=== PATIENT | male | born 1955 | race American Indian/Alaskan Native ===

== ENCOUNTER 2018-05-17 05:47 | Day surgery (SDC) | payer MEDICAID ==
[2018-05-17] MEDS ORDERED: ANCEF/STERILE WATER 2 GM/20 ML 2 GM/20 ML SYRINGE IV NR (06:00)
[2018-05-17] MEDS ORDERED: NACL 0.9% 1000 ML 1,000 ML IV SCH (06:00)
[2018-05-17 07:03] LABS: Basophils % (Auto) 1.1 % (0.0-1.8); Eosinophils # (Auto) 0.1 K/mm3 (0.0-0.4); Eosinophils % (Auto) 4.2 % (0.0-4.3); Hematocrit 37.7 % (35.5-45.6); Hemoglobin 11.8 gm/dl (11.8-15.2); Lymphocytes # (Auto) 1.3 K/mm3 (1.2-5.4); Lymphocytes % (Auto) 41.3 % (13.4-35.0); Mean Corpuscular HGB Conc 31 % (32-34); Mean Corpuscular Hemoglobin 25 pg (28-32); Mean Corpuscular Volume 81 fl (84-94); Monocytes # (Auto) 0.2 K/mm3 (0.0-0.8); Monocytes % (Auto) 7.3 % (0.0-7.3); Platelet Count 101 K/mm3 (140-440); Red Blood Count 4.64 M/mm3 (3.65-5.03); Red Cell Distribution Width 19.2 % (13.2-15.2)
[2018-05-17 07:15] LABS: Calcium 9.1 mg/dL (8.4-10.2)
[2018-05-17] MEDS ORDERED: XYLOCAINE MPF 2% ONE (07:16)
[2018-05-17] MEDS ORDERED: DIPRIVAN 10 MG/ML IV ONE ×2 (07:16→09:51)
[2018-05-17] MEDS ORDERED: LOPRESSOR IV ONE (07:33)
[2018-05-17] MEDS ORDERED: MARCAINE-EPI 0.5%-1:200,000 INFILTRATI ONE ×3 (07:38→09:03)
[2018-05-17] MEDS ORDERED: GELFOAM TP ONE ×2 (07:39→08:13)
[2018-05-17] MEDS ORDERED: HEPARIN ONE (07:39)
[2018-05-17] MEDS ORDERED: THROMBIN (BOVINE) TP ONE ×2 (07:39→08:13)
[2018-05-17] MEDS ORDERED: RIFADIN ONE ×2 (07:39→07:41)
[2018-05-17] MEDS ORDERED: NACL 0.9% 500 ML 500 ML ONE ×2 (07:39→07:40)
[2018-05-17] MEDS ORDERED: MARCAINE 0.5% INFILTRATI ONE (07:40)
[2018-05-17] MEDS ORDERED: SUBLIMAZE ONE ×2 (07:43→09:11)
[2018-05-17] MEDS ORDERED: ZEMURON IV ONE (07:43)
[2018-05-17] MEDS ORDERED: HEPARIN 10,000 UNITS/10 ML ONE (07:46)
[2018-05-17] MEDS ORDERED: ZOFRAN IV PRN (07:47)
--- NOTE | 2018-05-17 07:52 | Anesthesia Consultation ---
Anesthesia Consult and Med Hx Date of service: 05/17/18 - Airway Anesthetic Teeth Evaluation: Edentulous ROM Head & Neck: Adequate Mental/Hyoid Distance: Adequate Mallampati Class: Class II Intubation Access Assessment: Probably Good - Pulmonary Exam CTA: Yes - Cardiac Exam Cardiac Exam: RRR - Pre-Operative Health Status ASA Pre-Surgery Classification: ASA3 Proposed Anesthetic Plan: General - Pre-Anesthesia Comment Pre-Anesthesia Comments: No LMA; most likely a hx of gastroparesis related to DM - Pulmonary Hx Smoking: Yes - Cardiovascular System Hx Hypertension: Yes Hx Peripheral Vascular Disease: Yes - Central Nervous System Hx Psychiatric Problems: No - Gastrointestinal Hx Gastroesophageal Reflux Disease: Yes - Endocrine Hx End Stage Renal Disease: Yes Hx Insulin Dependent Diabetes: Yes (BS 107) - Other Systems Hx Alcohol Use: Yes (Occasional) Hx Cancer: No
--- NOTE | 2018-05-17 07:53 | Anesthesia Day of Surgery ---
Anesthesia Day of Surgery - Day of Surgery Patient Examined: Yes Patient H&P Reviewed: Yes Patient is NPO: Yes Beta Blockers: Yes
[2018-05-17] MEDS ORDERED: PEPCID IV NR ×2 (08:00)
[2018-05-17] MEDS ORDERED: GELFOAM 12 X 7 TP ONE (09:03)
[2018-05-17] MEDS ORDERED: NACL 0.9% IR ONE (09:03)
[2018-05-17] MEDS ORDERED: HEPARIN 10,000 UNITS/10 ML IR ONE (09:03)
[2018-05-17] MEDS ORDERED: THROMBIN SPRAYKIT (BOVINE) TP ONE (09:03)
[2018-05-17] MEDS ORDERED: NACL 0.9% 500 ML IRRIGATION ONE (09:03)
[2018-05-17] MEDS ORDERED: PROAIR IH ONE (09:10)
--- NOTE | 2018-05-17 10:04 | Short Stay Summary ---
Short Stay Documentation Date of service: 05/17/18 - History H&P: obtained from office - Allergies and Medications Current Medications: Allergies No Known Allergies Allergy (Unverified 05/10/18 17:04) Home Medications Medication Instructions Recorded Confirmed Last Taken Type ALBUTEROL Inhaler (OR & NICU) 2 puff IH QID PRN 05/17/18 05/17/18 Unknown History [Proair] Amlodipine Besylate [Norvasc] 10 mg PO QDAY 05/17/18 05/17/18 05/16/18 07:00 History Aspirin [Aspirin BABY CHEW TAB] 81 mg PO QDAY 05/17/18 05/17/18 05/16/18 07:00 History Carvedilol 25 mg PO BID 05/17/18 05/17/18 05/16/18 07:00 History Cholecalciferol (Vitamin D3) 1,000 unit PO QDAY 05/17/18 05/17/18 05/16/18 07: 00 History [Vitamin D3] Furosemide [Lasix] 80 mg PO QDAY 05/17/18 05/17/18 05/16/18 07:00 History Gabapentin [Neurontin] 300 mg PO BID 05/17/18 05/17/18 05/16/18 07:00 History Hydralazine HCl 50 mg PO BID 05/17/18 05/17/18 05/16/18 07:00 History Insulin NPH Hum/Reg Insulin Hm 31 unit SQ QPM 05/17/18 05/17/18 05/15/18 History [Relion Novolin 70-30 Vial] Insulin NPH Hum/Reg Insulin Hm 35 unit SQ QAM 05/17/18 05/17/18 05/16/18 07:00 History [Relion Novolin 70-30 Vial] 35 UNITS Active Medications Famotidine (Pepcid) 20 mg IV PREOP NR Stop: 05/17/18 12:00 Last Admin: 05/17/18 07:54 Dose: 20 mg Hydromorphone HCl (Dilaudid) 0.25 mg IV Q10MIN PRN PRN Reason: Pain, Moderate (4-6) Stop: 05/17/18 20:00 Sodium Chloride (Nacl 0.9% 1000 Ml) 1,000 mls @ 42 mls/hr IV DIRECT KERRIE Last Admin: 05/17/18 07:31 Dose: 42 mls/hr - Brief post op/procedure progress note Date of procedure: 05/17/18 Pre-op diagnosis: failing arteriovenous fistula left arm Post-op diagnosis: same Procedure: Elevation of left arm braciobasilic fistula. Anesthesia: GETA, local (0.5% Marcaine w epi) Findings: excellent thrill in fistula at end of case Surgeon: EULALIA ALANIZ Estimated blood loss: minimal Pathology: none Condition: stable - Hospital course Hospital course: benign - Disposition Condition at discharge: Good Disposition: DC-01 TO HOME OR SELFCARE Short Stay Discharge Plan Activity: advance as tolerated Diet: advance as tolerated Wound: per your surgeon's advice Follow up with: EULALIA ALANIZ MD [Staff Physician] - 7 Days Prescriptions: HYDROcodone/APAP 5-325 [[place] 5/325] 1 each PO Q6HR PRN #30 tablet PRN Reason: Pain
--- NOTE | 2018-05-17 10:08 | Operative Report ---
Operative Report Operative Report: Date of procedure: 05/17/2018 Pre-operative diagnosis: Failing arteriovenous fistula, left upper extremity Post-operative diagnosis: Same Procedure name(s): Elevation of left upper extremity basilar vein fistula in the upper arm Surgeon: Noah Ga MD Independent Living Instructor: None Anesthesia: Gen. With local supplementation using half percent Marcaine with epinephrine EBL: Minimal Operative indication: Patient is a 62-year-old man who has a functioning AV fistula left upper extremity but is too deep for dialysis access. He presents now for elevation of the left upper extremity arteriovenous fistula. Findings: Fistula appeared to be of good caliber with an excellent thrill. It was deep to the fascia and needed to be elevated to the subcutaneous area. Procedure: The patient was placed on the table supine position and given appropriate anesthesia. The area of the left arm was prepped with a ChloraPrep solution and draped in the usual sterile fashion. Real-time ultrasound guidance was used to sergio the area of the fistula on the skin. Half Percent Marcaine with epinephrine was used to anesthetize the skin incision that was just medial to the marked fistula. Decision was made parallel to the arm over the fistula. Dissection was carried out to identify the fistula. The fistula was clearly deep to the fascia. It was resting on the muscle underneath. Meticulous dissection was used to free the fistula up along its entire course along the bicep. The fascia was then divided and a subcutaneous cutaneous tunnel was made just underneath the skin slightly more laterally to this location. Meticulous hemostasis was obtained. The fistula was then elevated into this tunnel and secured into place using 3-0 interrupted Vicryl sutures. The wound was infiltrated with half percent Marcaine with epinephrine. The subcutaneous tissue was closed using running 3-0 Vicryl. The skin was closed using running 4-0 Monocryl. Sterile dressings were applied. The patient tolerated the procedure well. Sponge, needle, and instrument counts were reported as correct. He was taken from the operating room to the recovery room in stable condition with a palpable left radial pulse and an excellent thrill in the arteriovenous fistula.
[2018-05-17] MEDS: DILAUDID IV PRN ×2 (10:43→10:58)
[2018-05-17] MEDS ORDERED: NORCO 5/325 PO PRN (11:06)
[2018-05-17] MEDS ORDERED: NORCO 5/325 PO ONE (13:20)
[2018-05-17 16:42] VITALS: BP 161/78
== END 2018-05-17 14:00 | disposition home or self-care (01) ==
LOC: OR 05:47
PROVIDERS: ATTEND Surgery Vascular Surgery
DX: T82.898A Other specified complication of vascular prosthetic devices, implants and grafts, initial encounter (principal); I12.0 Hypertensive chronic kidney disease with stage 5 chronic kidney disease or end stage renal disease; E11.22 Type 2 diabetes mellitus with diabetic chronic kidney disease; N18.6 End stage renal disease; M19.90 Unspecified osteoarthritis, unspecified site; K21.9 Gastro-esophageal reflux disease without esophagitis; Z72.89 Other problems related to lifestyle; Z87.891 Personal history of nicotine dependence; Z79.899 Other long term (current) drug therapy; Z79.4 Long term (current) use of insulin; Z79.82 Long term (current) use of aspirin; Z79.01 Long term (current) use of anticoagulants; Z98.49 Cataract extraction status, unspecified eye; Z98.890 Other specified postprocedural states; Y83.9 Surgical procedure, unspecified as the cause of abnormal reaction of the patient, or of later complication, without mention of misadventure at the time of the procedure; Y92.89 Other specified places as the place of occurrence of the external cause
CPT/HCPCS: 36415; 36832; 80048; 82962; 85025; A4649; J0690; J1170; J1644; J2704; J3010; J3490; J7030; J7040

== ENCOUNTER 2018-05-28 13:17 | Inpatient (IN) | payer MEDICAID ==
[2018-05-28] MEDS ORDERED: TYLENOL PO ONE (13:37)
[2018-05-28] MEDS ORDERED: NACL 0.9% 500 ML 500 ML IV ONE (13:40)
[2018-05-28] MEDS ORDERED: NACL 0.9% 500 ML 500 ML ONE (13:45)
--- NOTE | 2018-05-28 13:45 | Emergency Department Report ---
ED General Adult HPI - General Chief complaint: Abdominal Pain Stated complaint: ABD PAIN Time Seen by Provider: 05/28/18 13:33 Source: patient, EMS Mode of arrival: Stretcher Limitations: No Limitations - History of Present Illness Initial comments: Patient is 59 years old male with history of end-stage renal disease on hemodialysis. Patient brought from dialysis center for fever and abdominal pain and left AV fistula pain. Patient stated that he did not finish dialysis. Patient had recently had a left arm AV fistula elevation. Patient is also coughing. He denied any nausea or vomiting. He described his abdominal pain as diffuse, comes and goes. Patient denied any diarrhea. - Related Data Home Medications Medication Instructions Recorded Confirmed Last Taken ALBUTEROL Inhaler (OR & NICU) 2 puff IH QID PRN 05/17/18 05/17/18 Unknown [ProAir HFA Inhaler] Amlodipine Besylate [Norvasc] 10 mg PO QDAY 05/17/18 05/17/18 05/16/18 07:00 Aspirin [Aspirin BABY CHEW TAB] 81 mg PO QDAY 05/17/18 05/17/18 05/16/18 07:00 Carvedilol 25 mg PO BID 05/17/18 05/17/18 05/16/18 07:00 Cholecalciferol (Vitamin D3) 1,000 unit PO QDAY 05/17/18 05/17/18 05/16/18 07:00 [Vitamin D3] Furosemide [Lasix] 80 mg PO QDAY 05/17/18 05/17/18 05/16/18 07:00 Gabapentin [Neurontin] 300 mg PO BID 05/17/18 05/17/18 05/16/18 07:00 Hydralazine HCl 50 mg PO BID 05/17/18 05/17/18 05/16/18 07:00 Insulin NPH Hum/Reg Insulin Hm 31 unit SQ QPM 05/17/18 05/17/18 05/15/18 [Relion Novolin 70-30 Vial] Insulin NPH Hum/Reg Insulin Hm 35 unit SQ QAM 05/17/18 05/17/18 05/16/18 07:00 [Relion Novolin 70-30 Vial] 35 UNITS Previous Rx's Medication Instructions Recorded Last Taken Type HYDROcodone/APAP 5-325 [[place] 1 each PO Q6HR PRN #30 tablet 05/17/18 Unknown Rx 5/325] Allergies Allergy/AdvReac Type Severity Reaction Status Date / Time No Known Allergies Allergy Unverified 05/10/18 17:04 ED Review of Systems ROS: Stated complaint: ABD PAIN Other details as noted in HPI Comment: All other systems reviewed and negative Constitutional: chills, fever ENT: denies: ear pain, throat pain Respiratory: denies: cough, orthopnea, shortness of breath, SOB with exertion, SOB at rest, wheezing Cardiovascular: denies: chest pain Gastrointestinal: abdominal pain. denies: nausea, vomiting, diarrhea, constipation, hematemesis, melena, hematochezia Musculoskeletal: denies: back pain Neurological: denies: headache, weakness, numbness, paresthesias, confusion ED Past Medical Hx - Past Medical History Hx Hypertension: Yes Hx Diabetes: Yes Hx Renal Disease: Yes (HD) Hx Arthritis: Yes - Surgical History Past Surgical History?: Yes Additional Surgical History: LEFT UPPER ARM FISTULA DISCONTINUED - Social History Smoking Status: Current Every Day Smoker Substance Use Type: None - Medications Home Medications: Home Medications Medication Instructions Recorded Confirmed Last Taken Type ALBUTEROL Inhaler (OR & NICU) 2 puff IH QID PRN 05/17/18 05/17/18 Unknown History [ProAir HFA Inhaler] Amlodipine Besylate [Norvasc] 10 mg PO QDAY 05/17/18 05/17/18 05/16/18 07:00 History Aspirin [Aspirin BABY CHEW TAB] 81 mg PO QDAY 05/17/18 05/17/18 05/16/18 07:00 History Carvedilol 25 mg PO BID 05/17/18 05/17/18 05/16/18 07:00 History Cholecalciferol (Vitamin D3) 1,000 unit PO QDAY 05/17/18 05/17/18 05/16/18 07: 00 History [Vitamin D3] Furosemide [Lasix] 80 mg PO QDAY 05/17/18 05/17/18 05/16/18 07:00 History Gabapentin [Neurontin] 300 mg PO BID 05/17/18 05/17/18 05/16/18 07:00 History HYDROcodone/APAP 5-325 [[place] 1 each PO Q6HR PRN #30 tablet 05/17/18 Unknown Rx 5/325] Hydralazine HCl 50 mg PO BID 05/17/18 05/17/18 05/16/18 07:00 History Insulin NPH Hum/Reg Insulin Hm 31 unit SQ QPM 05/17/18 05/17/18 05/15/18 History [Relion Novolin 70-30 Vial] Insulin NPH Hum/Reg Insulin Hm 35 unit SQ QAM 05/17/18 05/17/18 05/16/18 07:00 History [Relion Novolin 70-30 Vial] 35 UNITS ED Physical Exam - General Limitations: No Limitations General appearance: alert, in no apparent distress - Head Head exam: Present: atraumatic, normocephalic, normal inspection - Eye Eye exam: Present: normal appearance - ENT ENT exam: Present: normal exam, normal orophraynx, mucous membranes moist - Neck Neck exam: Present: normal inspection, full ROM. Absent: tenderness, meningismus, lymphadenopathy, thyromegaly - Respiratory Respiratory exam: Present: normal lung sounds bilaterally. Absent: respiratory distress, wheezes, rales, rhonchi, stridor, chest wall tenderness, accessory muscle use, decreased breath sounds, prolonged expiratory - Cardiovascular Cardiovascular Exam: Present: regular rate, normal rhythm, normal heart sounds - GI/Abdominal GI/Abdominal exam: Present: soft, normal bowel sounds. Absent: distended, tenderness, guarding, rebound, rigid, organomegaly, mass, bruit, pulsatile mass - Extremities Exam Extremities exam: Present: normal inspection, full ROM, normal capillary refill - Back Exam Back exam: Present: normal inspection, full ROM. Absent: tenderness, CVA tenderness (R), CVA tenderness (L), muscle spasm, paraspinal tenderness, vertebral tenderness - Neurological Exam Neurological exam: Present: alert, oriented X3, CN II-XII intact, normal gait, reflexes normal - Skin Skin exam: Present: other (left arm AV fistula warm to touch and tender to palpation. Positive palpable thrill) ED Course Vital Signs 05/28/18 05/28/18 13:28 14:41 Temperature 102.8 F H Pulse Rate 75 Respiratory 20 23 Rate Blood Pressure 196/83 O2 Sat by Pulse 100 Oximetry ED Medical Decision Making - Lab Data Result diagrams: 05/28/18 Unknown 05/28/18 Unknown - EKG Data -: EKG Interpreted by Dc EKG shows normal: sinus rhythm Rate: normal - EKG Data Interpretation: no acute changes - Radiology Data Radiology results: report reviewed Referring Physician: DALI TAN Patient Name: ABIEL MONTES Date of : 1955 Sex: Male Report Date: 2018-05-28 Report Status: Finalized Findings [address] [address] XRay Report Signed Patient: ABIEL MONTES JR MR#: [id number] : 1955 Acct:[id number] Age/Sex: 62 / M ADM Date: 05/28/18 Loc: ED Attending Dr: Ordering Physician: DALI TAN Date of Service: 05/28/18 Procedure(s): XR chest 1V ap Accession Number(s): [id number] cc: DALI TAN Fluoro Time In Minutes: FINAL REPORT EXAM: XR CHEST 1V AP HISTORY: possible Sepsis TECHNIQUE: Single, portable chest x-ray. PRIORS: None. FINDINGS: Right IJ dual-lumen catheter tip projects over SVC-RA junction. Cardiac and mediastinal silhouette within normal limits. Lungs are normally expanded, with some interstitial prominence centrally. No focal consolidation or apparent pneumothorax. Bony thorax grossly unremarkable. IMPRESSION: 1. No acute consolidation. Transcribed By: [facility] Dictated By: TRENA LEWIS MD Electronically Authenticated By: TRENA LEWIS MD Signed Date/Time: 05/28/181409 DD/ 09 TD/TT: 05/28/18 141 Referring Physician: DALI TAN Patient Name: ABIEL MONTES Date of : 1955 Sex: Male Report Date: 2018-05-28 Report Status: Finalized Findings [address] [address] Ultrasound Report Signed Patient: ABIEL MONTES JR MR#: [id number] : 1955 Acct:[id number] Age/Sex: 62 / M ADM Date: 05/28/18 Loc: ED Attending Dr: Ordering Physician: DALI TAN Date of Service: 05/28/18 Procedure(s): US extremity nonvascular LT Accession Number(s): [id number] cc: DALI KruegerJessica TAN FINAL REPORT EXAM: US EXTREMITY NONVASCULAR LT HISTORY: left arm AV fISTULA tenderness, R/O ABSCESS TECHNIQUE: Directed sonography of the left upper extremity. PRIORS: None. FINDINGS: Directed sonography of left upper extremity form in vicinity of AV fistula. This demonstrates an ovoid or oblong, heterogeneous hypoechoic focus, with lobular margins, measuring approximately 5.1 x 0.7 x 1.2 cm. No significant hyperemia on color Doppler interrogation. Adjacent AV fistula partially visualized and demonstrates complete fill-in on color Doppler interrogation suggesting patency. No other focal abnormalities. IMPRESSION: 1. [place], complex cystic focus or mass in left upper extremity adjacent to AV fistula, which may represent nonspecific infectious, inflammatory or hemorrhagic collection, although neoplastic process not completely excluded. Exact etiology uncertain, and clinical correlation along with followup suggested. Transcribed By: [facility] Dictated By: TRENA LEWIS MD Electronically Authenticated By: TRENA LEWIS MD Signed Date/Time: 05/28/181508 DD/ 08 TD/TT: 05/28/181508 - Medical Decision Making Patient is 59 years old male with history of end-stage renal disease on hemodialysis. Patient brought from dialysis center for fever and abdominal pain and left AV fistula pain. Patient stated that he did not finish dialysis. Patient had recently had a left arm AV fistula elevation. Patient is also coughing. He denied any nausea or vomiting. He described his abdominal pain as diffuse, comes and goes. Patient denied any diarrhea. Patient left arm AV fistula ultrasound showed a cystic lesion hematoma versus an infectious causes. I discussed the patient is Dr. Calderón for vascular and he stated that he is coming down to evaluate the patient in the ER. Patient chest x-ray is negative for pneumonia or other finding. His CT abdomen and pelvis is negative for acute finding. I discussed the patient with Dr. Bermudez, he agreed to admit the patient to medical service. Critical Care Time: Yes Critical care time in (mins) excluding proc time.: 45 Critical care attestation.: If time is entered above; I have spent that time in minutes in the direct care of this critically ill patient, excluding procedure time. ED Disposition Clinical Impression: Sepsis, AV fistula infection, Fever Disposition: DC09 OP ADMIT IP TO THIS HOSP Is pt being admited?: Yes Condition: Stable Referrals: PRIMARY CARE,MD [Primary Care Provider] - 3-5 Days
[2018-05-28] MEDS ORDERED: ZOSYN/NS 2.25 GM/50ML 2.25 GM/50 ML BAG IV ONE (14:00)
--- NOTE | 2018-05-28 14:11 | XRay Report ---
FINAL REPORT EXAM: XR CHEST 1V AP HISTORY: possible Sepsis TECHNIQUE: Single, portable chest x-ray. PRIORS: None. FINDINGS: Right IJ dual-lumen catheter tip projects over SVC-RA junction. Cardiac and mediastinal silhouette within normal limits. Lungs are normally expanded, with some interstitial prominence centrally. No focal consolidation or apparent pneumothorax. Bony thorax grossly unremarkable. IMPRESSION: 1. No acute consolidation.
[2018-05-28 14:13] LABS: Basophils % (Auto) 0.6 % (0.0-1.8); Eosinophils % (Auto) 0.6 % (0.0-4.3); Hematocrit 38.2 % (35.5-45.6); Hemoglobin 12.3 gm/dl (11.8-15.2); Lymphocytes # (Auto) 0.7 K/mm3 (1.2-5.4); Lymphocytes % (Auto) 11.8 % (13.4-35.0); Mean Corpuscular HGB Conc 32 % (32-34); Mean Corpuscular Hemoglobin 26 pg (28-32); Mean Corpuscular Volume 81 fl (84-94); Monocytes # (Auto) 0.3 K/mm3 (0.0-0.8); Monocytes % (Auto) 5.6 % (0.0-7.3); Platelet Count 101 K/mm3 (140-440); Red Blood Count 4.72 M/mm3 (3.65-5.03); Red Cell Distribution Width 17.2 % (13.2-15.2)
[2018-05-28 14:22] LABS: INR 1.02 (0.87-1.13)
[2018-05-28 14:44] LABS: Albumin 4.1 g/dL (3.9-5); Calcium 9.4 mg/dL (8.4-10.2)
--- NOTE | 2018-05-28 15:11 | Ultrasound Report ---
FINAL REPORT EXAM: US EXTREMITY NONVASCULAR LT HISTORY: left arm AV fISTULA tenderness, R/O ABSCESS TECHNIQUE: Directed sonography of the left upper extremity. PRIORS: None. FINDINGS: Directed sonography of left upper extremity form in vicinity of AV fistula. This demonstrates an ovoid or oblong, heterogeneous hypoechoic focus, with lobular margins, measuring approximately 5.1 x 0.7 x 1.2 cm. No significant hyperemia on color Doppler interrogation. Adjacent AV fistula partially visualized and demonstrates complete fill-in on color Doppler interrogation suggesting patency. No other focal abnormalities. IMPRESSION: 1. [place], complex cystic focus or mass in left upper extremity adjacent to AV fistula, which may represent nonspecific infectious, inflammatory or hemorrhagic collection, although neoplastic process not completely excluded. Exact etiology uncertain, and clinical correlation along with followup suggested.
[2018-05-28] MEDS ORDERED: VANCOMYCIN/NS 1 GM/250 ML 1 GM/250 ML BAG IV ONE ×2 (15:36→20:00)
--- NOTE | 2018-05-28 15:39 | Cat Scan Report ---
FINAL REPORT EXAM: CT ABDOMEN PELVIS WO CON HISTORY: ABDOMINAL PAIN TECHNIQUE: Spiral CT scanning of the abdomen and pelvis. No oral or IV contrast administered. Multiplanar reformations. PRIORS: None. FINDINGS: Abdomen: Examination limited due to lack of contrast administration. Visualized lung bases grossly clear. Possible left gynecomastia partially visualized. No radiopaque gallstones. Liver demonstrates diffusely nodular margins. Rounded hypodensity in the right hepatic lobe measures approximately 1 cm. Spleen grossly unremarkable. Pancreas grossly unremarkable. Kidneys are small and atrophic bilaterally. 1-2, punctate calcifications in the bilateral kidneys without significant hydronephrosis. Adrenal glands grossly unremarkable. Pelvis: Bowel grossly unremarkable. Appendix within normal limits. No significant free peritoneal fluid or loculated fluid collection. Aortoiliac calcification without aneurysmal dilatation. Mild, nonspecific prostatic enlargement. Well-circumscribed scalloping or lucencies noted in the L3 superior endplate and L4 superior and inferior endplates may represent prominent Schmorl's node endplate changes, but nonspecific. Fat-containing, bilateral inguinal hernias, right greater than left, and probably containing some dependent fluid on the right. IMPRESSION: 1. Findings compatible with cirrhotic change in the liver. 2. Hepatic hypodensity possibly representing cyst versus hemangioma, but nonspecific. Correlation with liver ultrasound may be confirmatory, as clinically indicated. 3. Punctate, nonobstructing bilateral renal calcifications. No significant hydronephrosis.
--- NOTE | 2018-05-28 16:21 | Consultation ---
History of Present Illness - Reason for Consult Consult date: 05/28/18 Fever. Left arm pain. - History of Present Illness 62 years old male with history of end-stage renal disease on hemodialysis. Patient brought from dialysis center for fever and abdominal pain and left AV fistula pain. Denies prior fever. Patient stated that he did not finish dialysis. Patient had recently had a left arm AV fistula elevation. Patient is also coughing. He denied any nausea or vomiting. He described his abdominal pain as diffuse, comes and goes. Patient denied any diarrhea. Vascular was consulted. Patient is slightly altered and provides an inconsistent report of pain of his left upper extremity. Patient has a left brachial basilic AV fistula with recent elevation on 2017. Ultrasound demonstrated expected postprocedural changes of a small hematoma. No drainage. Mild discomfort at the site. Good thrill. Good pulses of the left upper extremity. Right internal jugular PermCath evaluated demonstrating no purulence or pain along the tunnel tract. Past History Past Medical History: arthritis, diabetes, dialysis, hypertension Past Surgical History: Other (LUE brachio-basilic AVF creation and elevation) Social history: smoking Family history: no significant family history Medications and Allergies Allergies Allergy/AdvReac Type Severity Reaction Status Date / Time No Known Allergies Allergy Unverified 05/10/18 17:04 Home Medications Medication Instructions Recorded Confirmed Last Taken Type ALBUTEROL Inhaler (OR & NICU) 2 puff IH QID PRN 05/17/18 05/17/18 Unknown History [ProAir HFA Inhaler] Amlodipine Besylate [Norvasc] 10 mg PO QDAY 05/17/18 05/17/18 05/16/18 07:00 History Aspirin [Aspirin BABY CHEW TAB] 81 mg PO QDAY 05/17/18 05/17/18 05/16/18 07:00 History Carvedilol 25 mg PO BID 05/17/18 05/17/18 05/16/18 07:00 History Cholecalciferol (Vitamin D3) 1,000 unit PO QDAY 05/17/18 05/17/18 05/16/18 07: 00 History [Vitamin D3] Furosemide [Lasix] 80 mg PO QDAY 05/17/18 05/17/18 05/16/18 07:00 History Gabapentin [Neurontin] 300 mg PO BID 05/17/18 05/17/18 05/16/18 07:00 History HYDROcodone/APAP 5-325 [[place] 1 each PO Q6HR PRN #30 tablet 05/17/18 Unknown Rx 5/325] Hydralazine HCl 50 mg PO BID 05/17/18 05/17/18 05/16/18 07:00 History Insulin NPH Hum/Reg Insulin Hm 31 unit SQ QPM 05/17/18 05/17/18 05/15/18 History [Relion Novolin 70-30 Vial] Insulin NPH Hum/Reg Insulin Hm 35 unit SQ QAM 05/17/18 05/17/18 05/16/18 07:00 History [Relion Novolin 70-30 Vial] 35 UNITS Active Meds: Active Medications Vancomycin HCl (Vancomycin/Ns 1 Gm/250 Ml) 1 gm in 250 mls @ 167.007 mls/hr IV ONCE ONE; Protocol Stop: 05/28/18 17:05 Review of Systems ROS unobtainable: due to mental status Exam - Constitutional Vitals: Temp Pulse Resp BP Pulse Ox 102.8 F H 75 23 196/83 100 05/28/18 13:28 05/28/18 13:28 05/28/18 14:41 05/28/18 13:28 05/28/18 13:28 General appearance: Present: mild distress (wants to eat food, hungry), obese - EENT Eyes: Present: EOM intact ENT: hearing intact - Respiratory Respiratory effort: normal - Extremities Extremities: abnormal (see HPI) - Psychiatric Psychiatric: appropriate mood/affect, cooperative Results - Labs CBC & Chem 7: 05/28/18 Unknown 05/28/18 Unknown Labs: Abnormal lab results 05/28/18 05/28/18 05/28/18 Range/Units Unknown Unknown Unknown MCV 81 L (84-94) fl MCH 26 L (28-32) pg RDW 17.2 H (13.2-15.2) % Plt Count 101 L (140-440) K/mm3 Lymph % (Auto) 11.8 L (13.4-35.0) % Lymph # 0.7 L (1.2-5.4) K/mm3 Seg Neutrophils % 81.4 H (40.0-70.0) % VBG pH 7.428 H (7.320-7.420) Sodium 134 L (137-145) mmol/L Chloride 95.5 L (98-107) mmol/L Creatinine 5.5 H (0.8-1.5) mg/dL AST 54 H (5-40) units/L Total Protein 8.5 H (6.3-8.2) g/dL - Imaging and Cardiology Venous US: report reviewed, image reviewed (LUE) Assessment and Plan 62-year-old male with end-stage renal disease who presents with altered mental status, fever, normal white blood cell count, and had recent left upper extremity brachiobasilic AV fistula elevation on 05/17/18 with ultrasound demonstrated expected postprocedural changes with small hematoma. No drainage from the left upper extremity site. Left upper extremity brachiobasilic AV fistula site demonstrates expected changes. No wound breakdown. No drainage. No purulence. No evidence of permcath tract infection. May have bacteremia from permcath. Recommend blood cultures. If blood cultures positive, then will decide between permcath exchange or allowing brachio-basilic AVF access based on patient's discomfort.
--- NOTE | 2018-05-28 16:32 | History and Physical Report ---
History of Present Illness Chief complaint: I have fever, chills, my left arm hurts, and i feel sick History of present illness: 62 YO Male with ESRD on HD(T,R,Sa), HTN, DM, OA, Nicotine Dependence presents to ED for evaluation. Pt states that he has experienced abdominal pain over the past day. Pain is 5/10, diffuse, persistent, without exacerbating or alleviating factors. Pt also complains of pain at LUE AV Fistula site, subjective fever, shaking chills, and weakness. Pt went to dialysis center for scheduled dialysis as was unable to undergo dialysis due to pain. Pt sent to [facility] ED for further care and evaluation. Pt seen and evaluated in ED and found to have fever to 102.8 as well as symptoms consistent with SIRS, AVF Infection, ESRD. Vascular Surgery service consulted in ED. Pt denies CP, palpitations, NVD , Trauma, BRBPR, Skin Rash or recent ill contacts. Past History Past Medical History: arthritis, diabetes, ESRD, hypertension Past Surgical History: Other (AV Fistula) Social history: single, smoking. denies: alcohol abuse, prescription drug abuse Family history: diabetes, hypertension Medications and Allergies Allergies Allergy/AdvReac Type Severity Reaction Status Date / Time No Known Allergies Allergy Unverified 05/10/18 17:04 Home Medications Medication Instructions Recorded Confirmed Last Taken Type ALBUTEROL Inhaler (OR & NICU) 2 puff IH QID PRN 05/17/18 05/17/18 Unknown History [ProAir HFA Inhaler] Amlodipine Besylate [Norvasc] 10 mg PO QDAY 05/17/18 05/17/18 05/16/18 07:00 History Aspirin [Aspirin BABY CHEW TAB] 81 mg PO QDAY 05/17/18 05/17/18 05/16/18 07:00 History Carvedilol 25 mg PO BID 05/17/18 05/17/18 05/16/18 07:00 History Cholecalciferol (Vitamin D3) 1,000 unit PO QDAY 05/17/18 05/17/18 05/16/18 07: 00 History [Vitamin D3] Furosemide [Lasix] 80 mg PO QDAY 05/17/18 05/17/18 05/16/18 07:00 History Gabapentin [Neurontin] 300 mg PO BID 05/17/18 05/17/18 05/16/18 07:00 History HYDROcodone/APAP 5-325 [[place] 1 each PO Q6HR PRN #30 tablet 05/17/18 Unknown Rx 5/325] Hydralazine HCl 50 mg PO BID 05/17/18 05/17/18 05/16/18 07:00 History Insulin NPH Hum/Reg Insulin Hm 31 unit SQ QPM 05/17/18 05/17/18 05/15/18 History [Relion Novolin 70-30 Vial] Insulin NPH Hum/Reg Insulin Hm 35 unit SQ QAM 05/17/18 05/17/18 05/16/18 07:00 History [Relion Novolin 70-30 Vial] 35 UNITS Active Meds: Active Medications Vancomycin HCl (Vancomycin/Ns 1 Gm/250 Ml) 1 gm in 250 mls @ 167.007 mls/hr IV ONCE ONE; Protocol Stop: 05/28/18 17:05 Review of Systems Constitutional: fever, chills, weakness, no weight loss, no weight gain Ears, nose, mouth and throat: no ear pain, no ear discharge, no tinnitis, no decreased hearing, no nose pain, no nasal congestion Cardiovascular: no chest pain, no orthopnea, no palpitations, no rapid/ irregular heart beat Respiratory: no cough, no cough with sputum, no excessive sputum, no hemoptysis Gastrointestinal: abdominal pain, no nausea, no vomiting, no diarrhea, no BRBPR , no melena, no hematochezia, no loss of appetite Genitourinary Male: no dysuria, no hematuria, no flank pain, no discharge, no urinary frequency Rectal: no pain, no incontinence, no bleeding Musculoskeletal: no neck stiffness, no neck pain, no arm numbness/tingling, no low back pain Integumentary: no rash, no pruritis, no redness, no sores, no wounds Neurological: no transient paralysis, no paralysis, no weakness, no parathesias , no numbness, no tingling, no seizures Psychiatric: no anxiety, no memory loss, no change in sleep habits, no sleep disturbances, no insomnia, no hypersomnia, no change in appetite, no change in libido Endocrine: no cold intolerance, no heat intolerance, no polyphagia, no excessive thirst, no polydipsia, no polyuria, no nocturia Hematologic/Lymphatic: no easy bruising, no lymphadenopathy, no lymphedema Allergic/Immunologic: no urticaria, no allergic rhinitis, no wheezing, no persistent infections, no anaphylaxis, no angioedema Exam - Constitutional Vitals: Temp Pulse Resp BP Pulse Ox 102.8 F H 75 23 196/83 100 05/28/18 13:28 05/28/18 13:28 05/28/18 14:41 05/28/18 13:28 05/28/18 13:28 General appearance: Present: mild distress - EENT Eyes: Present: PERRL ENT: hearing intact, clear oral mucosa - Neck Neck: Present: supple, normal ROM - Respiratory Respiratory effort: normal Respiratory: bilateral: CTA - Cardiovascular Heart Sounds: Present: S1 & S2. Absent: rub, click - Extremities Extremities: pulses symmetrical, No edema Peripheral Pulses: within normal limits - Abdominal General gastrointestinal: Present: soft, non-tender, non-distended. Absent: hepatomegaly, splenomegaly, mass, hernia Male genitourinary: Present: normal - Integumentary Integumentary: Present: clear, warm, dry - Musculoskeletal Musculoskeletal: gait normal, strength equal bilaterally - Psychiatric Psychiatric: appropriate mood/affect, intact judgment & insight - Neurologic Neurologic: CNII-XII intact, moves all extremities Results - Labs CBC & Chem 7: 05/28/18 Unknown 05/28/18 Unknown Labs: Abnormal lab results 05/28/18 05/28/18 05/28/18 Range/Units Unknown Unknown Unknown MCV 81 L (84-94) fl MCH 26 L (28-32) pg RDW 17.2 H (13.2-15.2) % Plt Count 101 L (140-440) K/mm3 Lymph % (Auto) 11.8 L (13.4-35.0) % Lymph # 0.7 L (1.2-5.4) K/mm3 Seg Neutrophils % 81.4 H (40.0-70.0) % VBG pH 7.428 H (7.320-7.420) Sodium 134 L (137-145) mmol/L Chloride 95.5 L (98-107) mmol/L Creatinine 5.5 H (0.8-1.5) mg/dL AST 54 H (5-40) units/L Total Protein 8.5 H (6.3-8.2) g/dL Assessment and Plan - Patient Problems (1) SIRS due to infectious process with acute organ dysfunction Current Visit: Yes Status: Acute Plan to address problem: Iv antibiotics, serial lactic acid level, (2) AV fistula infection Current Visit: Yes Status: Acute Qualifiers: Encounter type: initial encounter Qualified Code(s): T82.7XXA - Infection and inflammatory reaction due to other cardiac and vascular devices, implants and grafts, initial encounter Plan to address problem: LUE Ultrasound, Vascular surgery consulted. (3) ESRD (end stage renal disease) on dialysis Current Visit: Yes Status: Acute Plan to address problem: Nephrology consulted in ED for dialysis as per ED physician, monitor uop q shift , avoid nephrotoxic agents, dialysis as per renal team (4) Diabetes Current Visit: Yes Status: Acute Plan to address problem: ADA diet, insulin, accu check (5) DVT prophylaxis Current Visit: Yes Status: Acute Plan to address problem: SCD to BLE while in bed
[2018-05-28] MEDS ORDERED: ZOFRAN IV PRN (16:34)
[2018-05-28] MEDS ORDERED: SODIUM CHLORIDE FLUSH SYRINGE 10 ML IV PRN (16:34)
[2018-05-28] MEDS ORDERED: PROAIR IH PRN (16:36)
[2018-05-28] MEDS ORDERED: NORCO 5/325 PO PRN (16:36)
[2018-05-28] MEDS ORDERED: PROVENTIL IH PRN (16:43)
[2018-05-28] MEDS ORDERED: VANCOMYCIN 2,000 MG in NACL 0.9% 500 ML 500 ML IV ONE (18:09)
[2018-05-28] MEDS ORDERED: ZOSYN/NS 4.5GM/100ML 4.5 GM/100 ML VIAL IV SCH (22:00)
[2018-05-28] MEDS: ZOSYN/NS 2.25 GM/50ML 2.25 GM/50 ML BAG IV SCH (22:36)
[2018-05-28] MEDS: NEURONTIN PO SCH (22:49)
[2018-05-28] MEDS: APRESOLINE PO SCH (22:49)
[2018-05-28] MEDS: COREG PO SCH (22:50)
[2018-05-28] MEDS: SODIUM CHLORIDE FLUSH SYRINGE 10 ML IV SCH (22:51)
[2018-05-29] MEDS ORDERED: AMBIEN PO ONE ×2 (00:37→22:40)
[2018-05-29] MEDS ORDERED: ALUM-MAG HYDROX-SIMETH 200-200-20MG/5ML PO ONE (00:40)
[2018-05-29] MEDS: ZOSYN/NS 2.25 GM/50ML 2.25 GM/50 ML BAG IV SCH ×3 (06:28→21:52)
[2018-05-29] MEDS: APRESOLINE PO SCH ×2 (10:15→21:51)
[2018-05-29] MEDS: VITAMIN D3 PO SCH (10:15)
[2018-05-29] MEDS: COREG PO SCH ×2 (10:16→21:51)
[2018-05-29] MEDS: NORVASC PO SCH (10:16)
[2018-05-29] MEDS: NEURONTIN PO SCH ×2 (10:16→21:52)
[2018-05-29] MEDS: BABY ASPIRIN PO SCH (10:17)
[2018-05-29] MEDS: SODIUM CHLORIDE FLUSH SYRINGE 10 ML IV SCH ×2 (10:17→21:52)
[2018-05-29] MEDS: LASIX PO SCH (10:17)
--- NOTE | 2018-05-29 10:18 | Progress Note ---
Assessment and Plan Assessment and plan: 62-year-old -[place] female with past medical history significant for hypertension, ESRD on hemodialysis, diabetes mellitus presented to the emergency department with complaints of abdominal pain, pain, swelling of the LUE and fever Left upper extremity swelling - Possible AVF infection - Vascular surgery consult noted Sepsis - continue zosyn - Blood culture pending ESRD on hemodialysis - Nephrology consulted Diabetes Mellitus - On insulin DVT prophylaxis - On heparin Disposition - Continue inpatient care History Interval history: Patient was seen and evaluated this morning, patient had fever overnight, patient's complaint abdominal pain. Hospitalist Physical - Physical exam Narrative exam: Not in cardiopulmonary distress. The patient appeared well nourished and normally developed. Vital signs as documented. Head exam is unremarkable. No scleral icterus . Neck is without jugular venous distension, thyromegaly, or carotid bruits. Lungs are clear to auscultation. Cardiac exam reveals regular rate and Rhythm. Abdominal exam reveals normal bowel sounds, no masses, no organomegaly and no aortic enlargement. Extremities left UE swelling at the AVF site. 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 No focal weakness. - Constitutional Vitals: Temp Pulse Resp BP Pulse Ox 99.9 F H 77 20 146/70 91 05/28/18 22:47 05/29/18 05:15 05/29/18 05:15 05/29/18 05:15 05/29/18 05:15 General appearance: Present: mild distress Results - Labs CBC & Chem 7: 05/28/18 Unknown 05/28/18 Unknown Labs: Laboratory Last Values WBC 5.7 K/mm3 (4.5-11.0) 05/28/18 Unknown RBC 4.72 M/mm3 (3.65-5.03) 05/28/18 Unknown Hgb 12.3 gm/dl (11.8-15.2) 05/28/18 Unknown Hct 38.2 % (35.5-45.6) 05/28/18 Unknown MCV 81 fl (84-94) L 05/28/18 Unknown MCH 26 pg (28-32) L 05/28/18 Unknown MCHC 32 % (32-34) 05/28/18 Unknown RDW 17.2 % (13.2-15.2) H 05/28/18 Unknown Plt Count 101 K/mm3 (140-440) L 05/28/18 Unknown Lymph % (Auto) 11.8 % (13.4-35.0) L 05/28/18 Unknown [place] % (Auto) 5.6 % (0.0-7.3) 05/28/18 Unknown Eos % (Auto) 0.6 % (0.0-4.3) 05/28/18 Unknown Baso % (Auto) 0.6 % (0.0-1.8) 05/28/18 Unknown Lymph # 0.7 K/mm3 (1.2-5.4) L 05/28/18 Unknown [place] # 0.3 K/mm3 (0.0-0.8) 05/28/18 Unknown Eos # 0.0 K/mm3 (0.0-0.4) 05/28/18 Unknown Baso # 0.0 K/mm3 (0.0-0.1) 05/28/18 Unknown Seg Neutrophils % 81.4 % (40.0-70.0) H 05/28/18 Unknown Seg Neutrophils # 4.6 K/mm3 (1.8-7.7) 05/28/18 Unknown PT 13.9 Sec. (12.2-14.9) 05/28/18 Unknown INR 1.02 (0.87-1.13) 05/28/18 Unknown VBG pH 7.428 (7.320-7.420) H 05/28/18 Unknown Sodium 134 mmol/L (137-145) L 05/28/18 Unknown Potassium 4.1 mmol/L (3.6-5.0) 05/28/18 Unknown Chloride 95.5 mmol/L (98-107) L 05/28/18 Unknown Carbon Dioxide 25 mmol/L (22-30) 05/28/18 Unknown Anion Gap 18 mmol/L 05/28/18 Unknown BUN 13 mg/dL (9-20) 05/28/18 Unknown Creatinine 5.5 mg/dL (0.8-1.5) H 05/28/18 Unknown Estimated GFR 13 ml/min 05/28/18 Unknown BUN/Creatinine Ratio 2 % 05/28/18 Unknown Glucose 97 mg/dL (75-100) 05/28/18 Unknown POC Glucose 117 (70-105) H 05/29/18 07:34 Lactic Acid 0.70 mmol/L (0.7-2.0) 05/29/18 01:22 Calcium 9.4 mg/dL (8.4-10.2) 05/28/18 Unknown Total Bilirubin 0.80 mg/dL (0.1-1.2) 05/28/18 Unknown AST 54 units/L (5-40) H 05/28/18 Unknown ALT 30 units/L (7-56) 05/28/18 Unknown Alkaline Phosphatase 117 units/L (35-129) 05/28/18 Unknown Ammonia 28.0 umol/L (25-60) 05/29/18 08:14 Total Protein 8.5 g/dL (6.3-8.2) H 05/28/18 Unknown Albumin 4.1 g/dL (3.9-5) 05/28/18 Unknown Albumin/Globulin Ratio 0.9 % 05/28/18 Unknown Lipase 31 units/L (13-60) 05/28/18 Unknown
--- NOTE | 2018-05-29 10:25 | Consultation ---
History of Present Illness - History of Present Illness Thank you for the consultation ! Patient was evaluated today My assessment and plan are as follows; Patient was evaluated today My assessment and plan are as follows ESRD: Patient is currently on hemodialysis on Wednesday and Wednesday Hemodialysis tomorrow morning, if okay with vascular surgery Admitted with fever or chills left arm pain, in the access arm Current dialysis access is a central venous catheter in the right upper chest He does go to [place] dialysis facility Graft was recently placed and is currently tender and warm but does appear to have good flow High fever: Likely due to access infection empiric antibiotic ultrasonogram of the access site vascular surgery consultation CAT scan of the abdomen pelvis shows: Cirrhosis of liver possible hepatic angioma and kidney stones very small As far as medications are concerned, gabapentin dose should be reduced to 300 mg once a day Patient may benefit more with angiotensin receptor balwinder as well as beta balwinder hence would like to discontinue amlodipine and possibly hydralazine as well No emergent indication for renal placement therapy today Anemia in end-stage renal disease current hemoglobin 12.3 satisfactory Low platelet count 101,000 needs follow-up on this Mild hyponatremia: Sodium 134 Patient does continue to make some urine Patient wasn't able to dialyze due to extreme pain and hence was sent to the hospital and was also noted to be febrile Need to rule out bacteremia, vascular surgery consultation is required empiric antibiotic for now Hypertension: Monitor and follow Secondary hyperparathyroidism: Check phosphorus and PTH level History of multiple comorbidities including arthritis diabetes hypertension smoking Patient adequately counseled and educated regarding multiple renal related issues Patient was adequately counseled and educated regarding multiple renal related issues. Renal prognosis remains guarded at this time All renal related questions were answered and simple Occitan pertinent lab studies as well as imaging results were also discussed with patient We will continue to follow and make recommendations from renal standpoint. Thank you for the consultation Author: Brendan Becerra M.D. [facility], [address] [place] [address] Tel; [phone] Source of information: From patient History of present illness Patient is a 62-year-old male who is currently in maintenance hemodialysis and being dialyzed on Wednesday at [facility]. Patient recently has had a fistula placed and has been admitted here with fever and intermittent abdominal pain and pain at the fistula site. Patient denies having any nausea vomiting and diarrhea. He is also known history of diabetes mellitus type 2. Blood cultures have been taken. Ultrasound was ordered for graft site patient states that ever since it has been placed he has been experiencing tenderness and pain at the site, he also concurrently does have history of some cough and cold scratchy throat no arthralgias myalgias fistula was placed on May 17, 2018, he is still continues to dialyze through a central venous catheter for now Past medical history significant for: End-stage renal disease Anemia and end-stage renal disease Arthritis Fistula creation hypertension Vitamin D deficiency Current allergies none Home medication present medication reviewed Social history: No history of medication drug or substance abuse Family history: Noncontributory for renal-related disorder Review of systems positive for; fever or chills cough sore throat Pain and tenderness at the fistula site All other review of systems negative Physical examination Vitals: Reviewed General: No acute distress HEENT: Oral mucosa moist no pallor or icterus Neck: Supple without any JVD thyromegaly or nodular mass Chest: Clear to auscultation Heart: Regular rate and rhythm S1-S2 heard no S3-S4 Abdomen: Soft nontender, bowel sounds present no renal bruit no suprapubic masses no CVA tenderness noted Extremity: Minimal edema dry skin no peripheral cyanosis, fistula has good thrill and bru Some tenderness with no erythema Endocrine: Thyroid not enlarged Psychiatric: No agitation and aggression noted Musculoskeletal: No joint effusion noted Labs and x-rays: Reviewed from this admission Past History Past Medical History: arthritis, diabetes, ESRD, hypertension Past Surgical History: Other (AV Fistula) Social history: single, smoking. denies: alcohol abuse, prescription drug abuse Family history: diabetes, hypertension Medications and Allergies Allergies Allergy/AdvReac Type Severity Reaction Status Date / Time No Known Allergies Allergy Unverified 05/10/18 17:04 Home Medications Medication Instructions Recorded Confirmed Last Taken Type ALBUTEROL Inhaler (OR & NICU) 2 puff IH QID PRN 05/17/18 05/17/18 Unknown History [ProAir HFA Inhaler] Amlodipine Besylate [Norvasc] 10 mg PO QDAY 05/17/18 05/17/18 05/16/18 07:00 History Aspirin [Aspirin BABY CHEW TAB] 81 mg PO QDAY 05/17/18 05/17/18 05/16/18 07:00 History Carvedilol 25 mg PO BID 05/17/18 05/17/18 05/16/18 07:00 History Cholecalciferol (Vitamin D3) 1,000 unit PO QDAY 05/17/18 05/17/18 05/16/18 07: 00 History [Vitamin D3] Furosemide [Lasix] 80 mg PO QDAY 05/17/18 05/17/18 05/16/18 07:00 History Gabapentin [Neurontin] 300 mg PO BID 05/17/18 05/17/18 05/16/18 07:00 History Hydralazine HCl 50 mg PO BID 05/17/18 05/17/18 05/16/18 07:00 History Insulin NPH Hum/Reg Insulin Hm 31 unit SQ QPM 05/17/18 05/17/18 05/15/18 History [Relion Novolin 70-30 Vial] Insulin NPH Hum/Reg Insulin Hm 35 unit SQ QAM 05/17/18 05/17/18 05/16/18 07:00 History [Relion Novolin 70-30 Vial] 35 UNITS Famotidine [Pepcid] 10 mg PO BID #30 tablet 06/03/18 Unknown Rx HYDROcodone/APAP 5-325 [[place] 1 each PO Q6HR PRN #12 tablet 06/03/18 Unknown Rx 5-325 mg TAB] Active Meds: Active Medications Acetaminophen (Tylenol) 650 mg PO Q4H PRN PRN Reason: Pain MILD(1-3)/Fever >100.5/MAYES Acetaminophen/Hydrocodone Bitart ([place] 5/325) 1 each PO Q6H PRN PRN Reason: Moderate Pain (4-6) Albuterol (Proventil) 2.5 mg IH Q4H PRN PRN Reason: Shortness Of Breath Amlodipine Besylate (Norvasc) 10 mg PO QDAY [facility] Last Admin: 05/29/18 10:16 Dose: 10 mg Aspirin (Baby Aspirin) 81 mg PO QDAY [facility] Last Admin: 05/29/18 10:17 Dose: 81 mg Carvedilol (Coreg) 25 mg PO BID [facility] Last Admin: 05/29/18 10:16 Dose: 25 mg Cholecalciferol (Vitamin D3) 1,000 unit PO DAILY [facility] Last Admin: 05/29/18 10:15 Dose: 1,000 unit Furosemide (Lasix) 80 mg PO DAILY [facility] Last Admin: 05/29/18 10:17 Dose: 80 mg Gabapentin (Neurontin) 300 mg PO BID [facility] Last Admin: 05/29/18 10:16 Dose: 300 mg Hydralazine HCl (Apresoline) 50 mg PO BID [facility] Last Admin: 05/29/18 10:15 Dose: 50 mg Piperacillin Sod/Tazobactam Sod (Zosyn/Ns 2.25 Gm/50ml) 2.25 gm in 50 mls @ 100 mls/hr IV Q8H [facility]; Protocol Last Admin: 05/29/18 06:28 Dose: 100 mls/hr Insulin Human Isoph/Insulin Regular (Humulin 70/30) 31 unit SUB-Q QPM [facility] Last Admin: 05/28/18 18:07 Dose: Not Given Insulin Human Isoph/Insulin Regular (Humulin 70/30) 35 unit SUB-Q QAM@0800 [facility] Last Admin: 05/29/18 10:14 Dose: Not Given Ondansetron HCl (Zofran) 4 mg IV Q8H PRN PRN Reason: Nausea And Vomiting Last Admin: 05/28/18 22:50 Dose: 4 mg Pneumococcal Polyvalent Vaccine (Pneumovax 23) 0.5 ml IM .ONCE ONE Stop: 05/29/18 12:01 Sodium Chloride (Sodium Chloride Flush Syringe 10 Ml) 10 ml IV BID [facility] Last Admin: 05/29/18 10:17 Dose: 10 ml Sodium Chloride (Sodium Chloride Flush Syringe 10 Ml) 10 ml IV PRN PRN PRN Reason: LINE FLUSH Exam - Vital Signs Vital signs: Vital Signs Temp Pulse Resp BP Pulse Ox 102.8 F H 75 20 196/83 100 05/28/18 13:28 05/28/18 13:28 05/28/18 13:28 05/28/18 13:28 05/28/18 13:28 Results - Lab Results 06/01/18 05:06 06/01/18 05:06 Most recent lab results Calcium 9.4 mg/dL (8.4-10.2) 05/28/18 Unknown
[2018-05-29] MEDS: PEPCID PO SCH ×2 (11:59→21:52)
[2018-05-29] MEDS ORDERED: AFLURIA QUAD 2018-2019 SYRINGE IM ONE (12:00)
[2018-05-29] MEDS ORDERED: PNEUMOVAX 23 IM ONE (12:00)
[2018-05-29] MEDS ORDERED: PEPCID PO SCH (12:00)
[2018-05-29 13:57] LABS: Bilirubin,Urine NEG (Negative); Blood,Urine NEG (Negative); Color,Urine Yellow (Yellow); Urobilinogen,Urine < 2.0 mg/dL (<2.0); WBC,Urine < 1.0 /HPF (0.0-6.0)
[2018-05-29 13:58] LABS: Protein,Urine >500 mg/dL (Negative)
--- NOTE | 2018-05-29 18:15 | Progress Note ---
Assessment and Plan 62-year-old male with end-stage renal disease who presents with altered mental status and fever. Both have since resolved. Has normal white blood cell count, and had recent left upper extremity brachiobasilic AV fistula elevation on 05/17/18 with ultrasound demonstrated expected postprocedural changes with small hematoma. No drainage from the left upper extremity site. No wound breakdown. No evidence of wound infection. No evidence of permcath tract infection. May have bacteremia from permcath. Fever began during dialysis through PermCath. Awaiting blood culture results. If blood cultures positive, then will decide between permcath exchange or allowing brachio-basilic AVF access based on patient's discomfort. Subjective Date of service: 05/29/18 Interval history: No evidence of left upper extremity wound infection. Ultrasound demonstrates expected postprocedural findings. Patient's arm is minimally tender. These are all appropriate postsurgical findings. PermCath site without purulence or tenderness. Objective - Constitutional Vitals: Vital Signs - 12hr 05/29/18 05/29/18 05/29/18 08:30 10:15 10:16 Temperature Pulse Rate 79 Respiratory 18 Rate Blood Pressure 137/65 137/65 O2 Sat by Pulse 93 86 Oximetry 05/29/18 05/29/18 11:52 16:51 Temperature 98.0 F 98.4 F Pulse Rate 75 75 Respiratory 18 18 Rate Blood Pressure 121/46 129/50 O2 Sat by Pulse 99 93 Oximetry General appearance: Present: no acute distress - EENT Eyes: EOM intact ENT: hearing intact - Neck Neck: other (right neck without tenderness. PermCath Without tenderness. No purulence.) - Respiratory Respiratory effort: normal Extremities: normal temperature, normal color, abnormal (thrill and left upper extremity. No drainage. Incision clean, dry, and intact. Palpable pulses in the radial and ulnar artery.) - Psychiatric Psychiatric: appropriate mood/affect, cooperative - Labs CBC & Chem 7: 05/28/18 Unknown 05/28/18 Unknown Labs: Abnormal lab results 05/29/18 05/29/18 05/29/18 Range/Units 07:34 11:13 15:58 POC Glucose 117 H 184 H 116 H (70-105)
[2018-05-29] MEDS: TYLENOL PO PRN (18:56)
[2018-05-30] MEDS: ZOSYN/NS 2.25 GM/50ML 2.25 GM/50 ML BAG IV SCH (06:52)
[2018-05-30] MEDS: TYLENOL PO PRN ×4 (06:53→23:29)
[2018-05-30 07:40] LABS: Calcium 9.1 mg/dL (8.4-10.2)
--- NOTE | 2018-05-30 09:46 | Progress Note ---
Assessment and Plan Impression: * ESRD * fever * HTN * anemia in ESRD * Type 2 DM Plan: * continue HD q TTHSAT * uf as tolerated with HD * daily lytes/cbc * vasc surgery input needed, noted int rad input * iv abx * renal diet Subjective Date of service: 05/30/18 Principal diagnosis: esrd Interval history: resting well in bed today Objective - Exam Narrative Exam: Not in cardiopulmonary distress. The patient appeared well nourished and normally developed. Vital signs as documented. Head exam is unremarkable. No scleral icterus . Neck is without jugular venous distension, thyromegaly, or carotid bruits. Lungs are clear to auscultation. Cardiac exam reveals regular rate and Rhythm. Abdominal exam reveals normal bowel sounds, no masses, no organomegaly and no aortic enlargement. Extremities left UE swelling at the AVF site. 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 No focal weakness - Vital Signs Vital signs: Vital Signs - 12hr 05/29/18 05/29/18 05/30/18 21:51 23:45 05:16 Temperature 99.0 F 100.2 F H Pulse Rate 77 79 84 Respiratory 16 18 Rate Blood Pressure 160/76 97/48 157/62 O2 Sat by Pulse 92 93 Oximetry 05/30/18 05/30/18 06:53 08:38 Temperature Pulse Rate Respiratory 17 Rate Blood Pressure O2 Sat by Pulse 95 Oximetry - Lab 05/28/18 Unknown 05/30/18 06:40 Most recent lab results Calcium 9.1 mg/dL (8.4-10.2) 05/30/18 06:40
[2018-05-30] MEDS ORDERED: NACL 0.9% 100 ML IV PRN (09:49)
[2018-05-30] MEDS: SODIUM CHLORIDE FLUSH SYRINGE 10 ML IV SCH ×2 (10:00→23:33)
[2018-05-30] MEDS: VITAMIN D3 PO SCH (11:05)
[2018-05-30] MEDS: PEPCID PO SCH ×2 (11:05→23:32)
[2018-05-30] MEDS: BABY ASPIRIN PO SCH (11:05)
[2018-05-30] MEDS: NEURONTIN PO SCH ×2 (11:05→23:28)
--- NOTE | 2018-05-30 11:31 | Consultation ---
History of Present Illness - Reason for Consult Consult date: 05/30/18 Fever, sepsis, concern for AVF infection Requesting physician: VADIM JONES - History of Present Illness The patient is a 62-year-old male with ESRD on hemodialysis every Wednesday, , Wednesday, hypertension, diabetes mellitus who presented to the emergency room on 05/28/2018 with complaints of fevers, chills, left arm pain along with abdominal pain. Patient reports that on Wednesday morning, he was not feeling well. He tried to eat breakfast and threw up. He went to dialysis and started spiking fevers and hence was sent here. In the emergency room, he was found to have a fever of 102.8F and some warmth and tenderness of his left AV fistula site. Of note, patient recently had an evaluation of his left AV fistula. He also has a tunneled HD catheter through which he has been receiving dialysis recently pending clearance of his left arm AV fistula. Patient received a dose of IV vancomycin and was also started on IV Zosyn after blood cultures were obtained. Is being seen by nephrology and vascular surgery. Continues to have low-grade temperature, this morning it was 100.2F. Continues to feel cold and have some chills. Denies any abdominal pain at this time. Review of Systems: General: + for fevers,chills. no rigors HEENT: no new visual disturbance Respiratory: No cough, sputum, hemoptysis or shortness of breath Cardiovascular: No chest pain, syncope Gastrointestinal: No nausea, vomiting or diarrhea currently. had nausea, vomiting prior to admission. Genitourinary: No dysuria or hematuria Musculoskeletal: No new or worsening neck pain or back pain Neurologic: No headaches, seizures Hematologic: No easy bruising or bleeding Endocrine: No night sweats or acute weight loss Skin: negative for rash, jaundice Psychiatric: No suicidal or homicidal ideation Past History Past Medical History: arthritis, diabetes, ESRD, hypertension Past Surgical History: Other (AV Fistula) Social history: single, smoking. denies: alcohol abuse, prescription drug abuse Family history: diabetes, hypertension Medications and Allergies Allergies Allergy/AdvReac Type Severity Reaction Status Date / Time No Known Allergies Allergy Unverified 05/10/18 17:04 Home Medications Medication Instructions Recorded Confirmed Last Taken Type ALBUTEROL Inhaler (OR & NICU) 2 puff IH QID PRN 05/17/18 05/17/18 Unknown History [ProAir HFA Inhaler] Amlodipine Besylate [Norvasc] 10 mg PO QDAY 05/17/18 05/17/18 05/16/18 07:00 History Aspirin [Aspirin BABY CHEW TAB] 81 mg PO QDAY 05/17/18 05/17/18 05/16/18 07:00 History Carvedilol 25 mg PO BID 05/17/18 05/17/18 05/16/18 07:00 History Cholecalciferol (Vitamin D3) 1,000 unit PO QDAY 05/17/18 05/17/18 05/16/18 07: 00 History [Vitamin D3] Furosemide [Lasix] 80 mg PO QDAY 05/17/18 05/17/18 05/16/18 07:00 History Gabapentin [Neurontin] 300 mg PO BID 05/17/18 05/17/18 05/16/18 07:00 History HYDROcodone/APAP 5-325 [[place] 1 each PO Q6HR PRN #30 tablet 05/17/18 Unknown Rx 5/325] Hydralazine HCl 50 mg PO BID 05/17/18 05/17/18 05/16/18 07:00 History Insulin NPH Hum/Reg Insulin Hm 31 unit SQ QPM 05/17/18 05/17/18 05/15/18 History [Relion Novolin 70-30 Vial] Insulin NPH Hum/Reg Insulin Hm 35 unit SQ QAM 05/17/18 05/17/18 05/16/18 07:00 History [Relion Novolin 70-30 Vial] 35 UNITS Active Meds: Active Medications Acetaminophen (Tylenol) 650 mg PO Q4H PRN PRN Reason: Pain MILD(1-3)/Fever >100.5/MAYES Last Admin: 05/30/18 06:53 Dose: 650 mg Acetaminophen/Hydrocodone Bitart ([place] 5/325) 1 each PO Q6H PRN PRN Reason: Moderate Pain (4-6) Albuterol (Proventil) 2.5 mg IH Q4H PRN PRN Reason: Shortness Of Breath Amlodipine Besylate (Norvasc) 10 mg PO QDAY [facility] Last Admin: 05/29/18 10:16 Dose: 10 mg Aspirin (Baby Aspirin) 81 mg PO QDAY [facility] Last Admin: 05/30/18 11:05 Dose: 81 mg Carvedilol (Coreg) 25 mg PO BID [facility] Last Admin: 05/29/18 21:51 Dose: 25 mg Cholecalciferol (Vitamin D3) 1,000 unit PO DAILY [facility] Last Admin: 05/30/18 11:05 Dose: 1,000 unit Famotidine (Pepcid) 10 mg PO BID [facility] Last Admin: 05/30/18 11:05 Dose: 10 mg Furosemide (Lasix) 80 mg PO DAILY [facility] Last Admin: 05/29/18 10:17 Dose: 80 mg Gabapentin (Neurontin) 300 mg PO BID [facility] Last Admin: 05/30/18 11:05 Dose: 300 mg Hydralazine HCl (Apresoline) 50 mg PO BID [facility] Last Admin: 05/29/18 21:51 Dose: 50 mg Piperacillin Sod/Tazobactam Sod (Zosyn/Ns 2.25 Gm/50ml) 2.25 gm in 50 mls @ 100 mls/hr IV Q8H [facility]; Protocol Last Admin: 05/30/18 06:52 Dose: 100 mls/hr Sodium Chloride (Nacl 0.9%) 100 mls @ 999 mls/hr IV BARTOLO PRN PRN Reason: Hypotension Insulin Human Isoph/Insulin Regular (Humulin 70/30) 31 unit SUB-Q QPM [facility] Last Admin: 05/29/18 17:34 Dose: 31 unit Insulin Human Isoph/Insulin Regular (Humulin 70/30) 35 unit SUB-Q QAM@0800 [facility] Last Admin: 05/30/18 08:24 Dose: Not Given Ondansetron HCl (Zofran) 4 mg IV Q8H PRN PRN Reason: Nausea And Vomiting Last Admin: 05/28/18 22:50 Dose: 4 mg Sodium Chloride (Sodium Chloride Flush Syringe 10 Ml) 10 ml IV BID [facility] Last Admin: 05/29/18 21:52 Dose: 10 ml Sodium Chloride (Sodium Chloride Flush Syringe 10 Ml) 10 ml IV PRN PRN PRN Reason: LINE FLUSH Zolpidem Tartrate (Ambien) 5 mg PO QHS PRN PRN Reason: Sleep Physical Examination - Physical Exam Narrative exam: Physical Exam: Constitutional: Alert, cooperative. No acute distress Head, Ears, Nose: Normocephalic, atraumatic. External ears, nose normal Eyes: Conjunctivae/corneas clear. No icterus. No ptosis. Neck: Supple, no meningeal signs Oral: dentition fair, no thrush Cardiovascular: S1, S2 normal. Respiratory: Good air entry, clear to auscultation bilaterally GI: Soft, non-tender; bowel sounds normal. No peritoneal signs Musculoskeletal: No pedal edema, no cyanosis. Left arm AVF site with thrill, there is warmth and tenderness +, no open wound or drainage. Right neck HD cath c/d/i Skin: No rash or abscess Hem/Lymphatic: No palpable cervical or supraclavicular nodes. No lymphangitis Psych: Mood ok. Affect normal Neurological: Awake, alert, oriented. No gross abnormality - Constitutional Vitals: Vital Signs Temp Pulse Resp BP Pulse Ox 100.2 F H 84 17 157/62 95 05/30/18 05:16 05/30/18 05:16 05/30/18 06:53 05/30/18 05:16 05/30/18 08:38 Temperature -Last 24 Hours Temperature 100.2 F Temperature 99.0 F Temperature 101.0 F Temperature 99.1 F Temperature 98.4 F Temperature 98.0 F Results - Labs CBC & Chem 7: 05/28/18 Unknown 05/30/18 06:40 Labs: Abnormal lab results 05/29/18 05/29/18 05/30/18 Range/Units 11:13 15:58 06:40 BUN 35 H (9-20) mg/dL Creatinine 8.5 H D (0.8-1.5) mg/dL POC Glucose 184 H 116 H (70-105) 05/30/18 Range/Units 07:29 BUN (9-20) mg/dL Creatinine (0.8-1.5) mg/dL POC Glucose 108 H (70-105) - Imaging and Cardiology Chest x-ray: report reviewed, image reviewed (shows no evidence of pneumonia. HD cath in position.) CT scan - abdomen: report reviewed, image reviewed (CT abdomen and pelvis without contrast reveals findings suggestive of cirrhotic liver, no evidence of infectious process) Venous US: report reviewed (Ultrasound of the left AV fistula reveals a heterogeneous hypoechoic focus of around 5.1 cm x 0.7 x 1.2 cm thought to represent nonspecific infectious versus inflammatory versus hemorrhagic collection.) Assessment and Plan 62-year-old male with ESRD on hemodialysis, hypertension, diabetes mellitus admitted with: #1 Sepsis, present on admission, source unclear but AVF site infection possible : presented with fever, tachypnea. No evidence of pneumonia. CT abdomen unrevealing for infectious process. Given fevers and chills, there is definitely a concern for bacteremia. Agree with evaluation for bacteremia given the presence of tunneled HD catheter although site appears clean with no concern for tunnel infection. He does have a complex fluid collection around his left AV fistula which was recently manipulated which could also be the source of infection. For now, recommend IV vancomycin to cover for gram- positive organisms including MRSA. Zosyn can be discontinued. #2 ESRD: On hemodialysis via a tunneled dialysis catheter: No evidence of infection of the HD catheter at this time. Your blood cultures. Renally dose antibiotics. Recs: - Follow up blood cultures - Discontinued Zosyn - Started IV vancomycin, renally adjusted, target predialysis levels between 10 -20 g per mL We'll follow along. Please call with questions. Plan d/w Dr. Jones. MD [facility] C: [phone] O: [phone]
[2018-05-30] MEDS ORDERED: VANCOMYCIN PHARMACY TO DOSE IV SCH (12:00)
--- NOTE | 2018-05-30 12:04 | Progress Note ---
Assessment and Plan Assessment and plan: 62-year-old -Filipino female with past medical history significant for hypertension, ESRD on hemodialysis, diabetes mellitus presented to the emergency department with complaints of abdominal pain, pain, swelling of the LUE and fever Left upper extremity swelling - Possible AVF infection - Vascular surgery consult noted Sepsis - ID consulted and recommended to d/c lilia and start him on vanco ESRD on hemodialysis - Nephrology is following Diabetes Mellitus - On insulin DVT prophylaxis - On heparin Disposition - Continue inpatient care History Interval history: Patient was seen and evaluated this morning, patient had episodes of fever overnight, patient complains mild SOB. Hospitalist Physical - Physical exam Narrative exam: Not in cardiopulmonary distress. The patient appeared well nourished and normally developed. Vital signs as documented. Head exam is unremarkable. No scleral icterus . Neck is without jugular venous distension, thyromegaly, or carotid bruits. Lungs are clear to auscultation. Cardiac exam reveals regular rate and Rhythm. Abdominal exam reveals normal bowel sounds, no masses, no organomegaly and no aortic enlargement. Extremities left UE swelling at the AVF site. 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 No focal weakness. - Constitutional Vitals: Temp Pulse Resp BP Pulse Ox 100.2 F H 84 17 157/62 95 05/30/18 05:16 05/30/18 05:16 05/30/18 06:53 05/30/18 05:16 05/30/18 08:38 General appearance: Present: no acute distress Results - Labs CBC & Chem 7: 05/28/18 Unknown 05/30/18 06:40 Labs: Laboratory Last Values WBC 5.7 K/mm3 (4.5-11.0) 05/28/18 Unknown RBC 4.72 M/mm3 (3.65-5.03) 05/28/18 Unknown Hgb 12.3 gm/dl (11.8-15.2) 05/28/18 Unknown Hct 38.2 % (35.5-45.6) 05/28/18 Unknown MCV 81 fl (84-94) L 05/28/18 Unknown MCH 26 pg (28-32) L 05/28/18 Unknown MCHC 32 % (32-34) 05/28/18 Unknown RDW 17.2 % (13.2-15.2) H 05/28/18 Unknown Plt Count 101 K/mm3 (140-440) L 05/28/18 Unknown Lymph % (Auto) 11.8 % (13.4-35.0) L 05/28/18 Unknown [place] % (Auto) 5.6 % (0.0-7.3) 05/28/18 Unknown Eos % (Auto) 0.6 % (0.0-4.3) 05/28/18 Unknown Baso % (Auto) 0.6 % (0.0-1.8) 05/28/18 Unknown Lymph # 0.7 K/mm3 (1.2-5.4) L 05/28/18 Unknown [place] # 0.3 K/mm3 (0.0-0.8) 05/28/18 Unknown Eos # 0.0 K/mm3 (0.0-0.4) 05/28/18 Unknown Baso # 0.0 K/mm3 (0.0-0.1) 05/28/18 Unknown Seg Neutrophils % 81.4 % (40.0-70.0) H 05/28/18 Unknown Seg Neutrophils # 4.6 K/mm3 (1.8-7.7) 05/28/18 Unknown PT 13.9 Sec. (12.2-14.9) 05/28/18 Unknown INR 1.02 (0.87-1.13) 05/28/18 Unknown VBG pH 7.428 (7.320-7.420) H 05/28/18 Unknown Sodium 139 mmol/L (137-145) 05/30/18 06:40 Potassium 4.5 mmol/L (3.6-5.0) 05/30/18 06:40 Chloride 100.3 mmol/L (98-107) 05/30/18 06:40 Carbon Dioxide 23 mmol/L (22-30) 05/30/18 06:40 Anion Gap 20 mmol/L 05/30/18 06:40 BUN 35 mg/dL (9-20) H 05/30/18 06:40 Creatinine 8.5 mg/dL (0.8-1.5) H D 05/30/18 06:40 Estimated GFR 8 ml/min 05/30/18 06:40 BUN/Creatinine Ratio 4 % 05/30/18 06:40 Glucose 92 mg/dL (75-100) 05/30/18 06:40 POC Glucose 199 (70-105) H 05/30/18 11:07 Lactic Acid 0.70 mmol/L (0.7-2.0) 05/29/18 01:22 Calcium 9.1 mg/dL (8.4-10.2) 05/30/18 06:40 Total Bilirubin 0.80 mg/dL (0.1-1.2) 05/28/18 Unknown AST 54 units/L (5-40) H 05/28/18 Unknown ALT 30 units/L (7-56) 05/28/18 Unknown Alkaline Phosphatase 117 units/L (35-129) 05/28/18 Unknown Ammonia 28.0 umol/L (25-60) 05/29/18 08:14 Total Protein 8.5 g/dL (6.3-8.2) H 05/28/18 Unknown Albumin 4.1 g/dL (3.9-5) 05/28/18 Unknown Albumin/Globulin Ratio 0.9 % 05/28/18 Unknown Lipase 31 units/L (13-60) 05/28/18 Unknown Urine Color Yellow (Yellow) 05/28/18 13:32 Urine Turbidity Clear (Clear) 05/28/18 13:32 Urine pH 6.0 (5.0-7.0) 05/28/18 13:32 Ur Specific [place] 1.014 (1.003-1.030) 05/28/18 13:32 Urine Protein >500 mg/dL (Negative) 05/28/18 13:32 Urine Glucose (UA) 50 mg/dL (Negative) 05/28/18 13:32 Urine Ketones Neg mg/dL (Negative) 05/28/18 13:32 Urine Blood Neg (Negative) 05/28/18 13:32 Urine Nitrite Neg (Negative) 05/28/18 13:32 Urine Bilirubin Neg (Negative) 05/28/18 13:32 Urine Urobilinogen < 2.0 mg/dL (<2.0) 05/28/18 13:32 Ur Leukocyte Esterase Neg (Negative) 05/28/18 13:32 Urine WBC (Auto) < 1.0 /HPF (0.0-6.0) 05/28/18 13:32 Urine RBC (Auto) 2.0 /HPF (0.0-6.0) 05/28/18 13:32 U Epithel Cells (Auto) 1.0 /HPF (0-13.0) 05/28/18 13:32
[2018-05-30] MEDS: APRESOLINE PO SCH ×2 (15:57→23:28)
[2018-05-30] MEDS: LASIX PO SCH (15:58)
[2018-05-30] MEDS: COREG PO SCH ×2 (15:59→23:27)
[2018-05-30] MEDS: NORVASC PO SCH (15:59)
--- NOTE | 2018-05-30 16:56 | Progress Note ---
Assessment and Plan Pt s/p Elevation of LUE Basilic vein AVF 05/17/18. Currently on HD via [facility] PC. Admitted with concerns of possible avf infection. Tmax 102.8, currently 101.1. WBC is currently 5.7 CT of the abd/pelvis shows cirrhotic liver, with hepatic cyst, and renal califications. Blood cx currently NGTD. LUE AVF is non-tender, without erythema, fluctuance, or drainage. Recently elevated Basilic vein fistula does not appear infected currently. Will continue to follow. - Patient Problems (1) ESRD (end stage renal disease) on dialysis Current Visit: Yes Status: Acute (2) Fever Current Visit: Yes Status: Acute Subjective Date of service: 05/30/18 Principal diagnosis: esrd Interval history: Pt sleeping, but arousable. Denies pain in LUE at this time. Objective - Constitutional Vitals: Vital Signs - 12hr 05/30/18 05/30/18 05/30/18 05:16 06:53 08:38 Temperature 100.2 F H Pulse Rate 84 Respiratory 18 17 Rate Blood Pressure 157/62 O2 Sat by Pulse 93 95 Oximetry 05/30/18 05/30/18 10:00 11:56 Temperature 101.1 F H Pulse Rate 81 Respiratory 20 20 Rate Blood Pressure 174/79 O2 Sat by Pulse 100 Oximetry General appearance: Present: no acute distress - EENT Eyes: EOM intact ENT: hearing intact - Neck Neck: supple - Respiratory Respiratory effort: normal Extremities: no ischemia, pulses intact (palpable radial pulse on the LUE, with a palpable thrill of the AVF. Incision is intact without erythema or drainage. Nontender to manipulation.), normal temperature, normal color - Neurologic Neurologic: no focal deficits - Psychiatric Psychiatric: appropriate mood/affect, intact judgment & insight, cooperative - Additional findings Additional findings: - Labs CBC & Chem 7: 05/28/18 Unknown 05/30/18 06:40 Labs: Abnormal lab results 05/30/18 05/30/18 05/30/18 Range/Units 06:40 07:29 11:07 BUN 35 H (9-20) mg/dL Creatinine 8.5 H D (0.8-1.5) mg/dL POC Glucose 108 H 199 H (70-105)
[2018-05-30] MEDS: AMBIEN PO PRN (23:28)
--- NOTE | 2018-05-31 09:11 | Progress Note ---
Assessment and Plan 2-year-old male with ESRD on hemodialysis, hypertension, diabetes mellitus admitted with: #1 Sepsis, Improving source unclear but AVF site infection possible: No evidence of pneumonia. CT abdomen unrevealing for infectious process. Given fevers and chills, there is definitely a concern for bacteremia. Agree with evaluation for bacteremia given the presence of tunneled HD catheter although site appears clean with no concern for tunnel infection. He does have a complex fluid collection around his left AV fistula which was recently manipulated which could also be the source of infection. Continue Renally adjusted ,IV vancomycin to cover for gram-positive organisms including MRSA. Blood cultures pending. #2 ESRD: On hemodialysis via a tunneled dialysis catheter: No evidence of infection of the HD catheter at this time. Your blood cultures. Renally dose antibiotics. Recs: - Follow up blood cultures - Continue IV vancomycin, D2, renally adjusted, target predialysis levels between 10-20 g per mL - STAT blood culture from HD cathete ordered, Patient was observed shaking with chills in HD . Subjective Date of service: 05/31/18 Principal diagnosis: esrd Interval history: Patient was observed in HD, shaking with chills. Stat blood cultures were ordered. Objective - Exam Narrative Exam: General: + for fevers,chills. no rigors HEENT: no new visual disturbance Respiratory: No cough, sputum, hemoptysis or shortness of breath Cardiovascular: No chest pain, syncope Gastrointestinal: No nausea, vomiting or diarrhea currently. had nausea, vomiting prior to admission. Genitourinary: No dysuria or hematuria Musculoskeletal: No new or worsening neck pain or back pain Neurologic: No headaches, seizures Hematologic: No easy bruising or bleeding Endocrine: No night sweats or acute weight loss Skin: negative for rash, jaundice - Constitutional Vitals: Vital Signs Temp Pulse Resp BP Pulse Ox 99.8 F H 85 20 159/80 100 05/31/18 06:14 05/31/18 06:14 05/31/18 06:14 05/31/18 06:14 05/31/18 06:14 Temperature -Last 24 Hours Temperature 99.8 F Temperature 100.8 F Temperature 102.8 F Temperature 101.1 F - Labs CBC & Chem 7: 05/28/18 Unknown 05/30/18 06:40 Labs: Abnormal lab results 05/30/18 05/30/18 05/30/18 Range/Units 11:07 16:43 21:17 POC Glucose 199 H 157 H 123 H (70-105)
[2018-05-31] MEDS ORDERED: NACL 0.9% 100 ML IV PRN (10:02)
--- NOTE | 2018-05-31 10:18 | Progress Note ---
Assessment and Plan Impression: * ESRD * fever * HTN * anemia in ESRD * Type 2 DM Plan: * continue HD q TTHSAT * uf as tolerated with HD * daily lytes/cbc * vasc surgery input noted * iv abx per id * renal diet * stable form renal standpoint Subjective Date of service: 05/31/18 Principal diagnosis: esrd Interval history: resting well in bed today Objective - Exam Narrative Exam: Not in cardiopulmonary distress. The patient appeared well nourished and normally developed. Vital signs as documented. Head exam is unremarkable. No scleral icterus . Neck is without jugular venous distension, thyromegaly, or carotid bruits. Lungs are clear to auscultation. Cardiac exam reveals regular rate and Rhythm. Abdominal exam reveals normal bowel sounds, no masses, no organomegaly and no aortic enlargement. Extremities left UE swelling at the AVF site. 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 No focal weakness - Vital Signs Vital signs: Vital Signs - 12hr 05/30/18 05/30/18 05/30/18 22:58 23:27 23:28 Temperature 100.8 F H Pulse Rate 80 80 80 Respiratory 18 Rate Blood Pressure 145/57 145/67 145/67 O2 Sat by Pulse 93 Oximetry 05/31/18 06:14 Temperature 99.8 F H Pulse Rate 85 Respiratory 20 Rate Blood Pressure 159/80 O2 Sat by Pulse 100 Oximetry - Lab 05/28/18 Unknown 05/30/18 06:40 Most recent lab results Calcium 9.1 mg/dL (8.4-10.2) 05/30/18 06:40
[2018-05-31] MEDS ORDERED: NACL 0.9 (PRIMING MACHINE ONLY DIALYSIS) MC ONE (10:50)
[2018-05-31 11:48] LABS: Hepatitis B Core IgM Non-Reactive (NonReactive); Hepatitis B Surface Antigen Non-Reactive (Negative); Hepatitis C Virus Antibody Reactive (NonReactive)
[2018-05-31] MEDS ORDERED: VANCOMYCIN/NS 1 GM/250 ML 1 GM/250 ML BAG IV SCH (12:00)
--- NOTE | 2018-05-31 12:11 | Event Note ---
Date: 05/31/18 Patient seen at dialysis. Was having shaking chills with use of his HD catheter , does raise concern for catheter infection. Spoke to dialysis nurse, will order STAT blood culture from HD catheter.
[2018-05-31] MEDS ORDERED: VANCOMYCIN/NS 1 GM/250 ML 1 GM/250 ML BAG IV ONE (14:00)
[2018-05-31] MEDS: TYLENOL PO PRN (14:11)
[2018-05-31] MEDS: NORVASC PO SCH (15:30)
[2018-05-31] MEDS: LASIX PO SCH (15:31)
[2018-05-31] MEDS: COREG PO SCH ×2 (15:31→21:48)
[2018-05-31] MEDS: VITAMIN D3 PO SCH (15:31)
[2018-05-31] MEDS: APRESOLINE PO SCH ×2 (15:32→21:49)
[2018-05-31] MEDS: NEURONTIN PO SCH ×2 (15:32→21:49)
[2018-05-31] MEDS: BABY ASPIRIN PO SCH (15:33)
[2018-05-31] MEDS: PEPCID PO SCH ×2 (15:34→21:49)
[2018-05-31] MEDS: SODIUM CHLORIDE FLUSH SYRINGE 10 ML IV SCH ×2 (15:34→21:50)
--- NOTE | 2018-05-31 16:58 | Progress Note ---
Assessment and Plan Pt with persistant fever (and chills while on HD per report). Work up in progress. Clinically does not appear to have AVF infection. Work up for possible PC infection in progress. - Patient Problems (1) ESRD (end stage renal disease) on dialysis Current Visit: Yes Status: Acute (2) Fever Current Visit: Yes Status: Acute Subjective Date of service: 05/31/18 Principal diagnosis: esrd Interval history: Pt off HD, and back in his room. He is without complaint at present. He denies complaint of pain in his arm currently. Objective - Constitutional Vitals: Vital Signs - 12hr 05/31/18 05/31/18 05/31/18 06:14 09:30 09:38 Temperature 99.8 F H 99.3 F Pulse Rate 85 82 79 Respiratory 20 18 Rate Blood Pressure 159/80 165/89 166/83 O2 Sat by Pulse 100 Oximetry 05/31/18 05/31/18 05/31/18 09:45 10:00 10:15 Temperature Pulse Rate 81 78 74 Respiratory Rate Blood Pressure 183/91 176/89 176/92 O2 Sat by Pulse Oximetry 05/31/18 05/31/18 05/31/18 10:30 10:45 11:00 Temperature Pulse Rate 78 96 H 85 Respiratory Rate Blood Pressure 173/85 168/75 172/81 O2 Sat by Pulse Oximetry 05/31/18 05/31/18 05/31/18 11:15 11:30 11:45 Temperature Pulse Rate 87 83 84 Respiratory Rate Blood Pressure 166/75 165/78 149/63 O2 Sat by Pulse Oximetry 05/31/18 05/31/18 05/31/18 12:00 12:15 12:30 Temperature Pulse Rate 94 H 94 H 88 Respiratory Rate Blood Pressure 162/91 171/87 167/82 O2 Sat by Pulse Oximetry 05/31/18 05/31/18 05/31/18 12:45 13:00 13:15 Temperature 100.1 F H Pulse Rate 92 H 87 76 Respiratory 20 Rate Blood Pressure 169/67 167/92 159/92 O2 Sat by Pulse Oximetry 05/31/18 05/31/18 05/31/18 15:30 15:31 15:32 Temperature Pulse Rate 76 76 76 Respiratory Rate Blood Pressure 159/92 159/92 159/92 O2 Sat by Pulse Oximetry General appearance: Present: no acute distress - EENT Eyes: EOM intact ENT: hearing intact - Respiratory Respiratory effort: normal Extremities: no ischemia, normal temperature, abnormal (Incision intact. Upper arm has mild swelling, but is without: erythem, drainage, induration, or fluctuance.) - Neurologic Neurologic: no focal deficits - Psychiatric Psychiatric: cooperative - Labs CBC & Chem 7: 05/28/18 Unknown 05/30/18 06:40 Labs: Abnormal lab results 05/30/18 05/31/18 05/31/18 Range/Units 21:17 10:05 16:00 POC Glucose 123 H 175 H (70-105) Hepatitis C Antibody Reactive A (NonReactive)
--- NOTE | 2018-05-31 17:23 | Progress Note ---
Assessment and Plan Assessment and plan: 62-year-old -[place] female with past medical history significant for hypertension, ESRD on hemodialysis, diabetes mellitus presented to the emergency department with complaints of abdominal pain, pain, swelling of the LUE and fever Left upper extremity swelling - Possible AVF infection - Vascular surgery consult noted Sepsis - ID consulted and now on vanco - still with fever today - Repeat blood cluture, ?infected HD access. Vascular following. ESRD on hemodialysis - Nephrology is following Liver Cirrhosis -?etiology Hepatic cyst vs hemangioma -follow. May need further review with noted fever if no other source identified Nonobstructing Bilateral renal calcification -Dialysis patient Peritoneal irritation - no acute finding in the imaging study Diabetes Mellitus - On insulin DVT prophylaxis - On heparin Disposition - Continue inpatient care History Interval history: Patient seen this morning, reports some improvement. Nursing reports patient had fever during dialysis Hospitalist Physical - Physical exam Narrative exam: Not in cardiopulmonary distress. The patient appeared well nourished and normally developed. Vital signs as documented. Head exam is unremarkable. No scleral icterus . Neck is without jugular venous distension, thyromegaly, or carotid bruits. Lungs are clear to auscultation. Cardiac exam reveals regular rate and Rhythm. Abdominal exam reveals normal bowel sounds, no masses, no organomegaly and no aortic enlargement. Extremities left UE swelling at the AVF site. K 9 POLICE OFFICER: Alert and oriented 3. No focal weakness. - Constitutional Vitals: Temp Pulse Resp BP Pulse Ox 102.1 F H 88 20 155/64 85 05/31/18 16:01 05/31/18 16:01 05/31/18 16:01 05/31/18 16:01 05/31/18 16:01 General appearance: Present: no acute distress Results - Labs CBC & Chem 7: 05/28/18 Unknown 05/30/18 06:40 Labs: Laboratory Last Values WBC 5.7 K/mm3 (4.5-11.0) 05/28/18 Unknown RBC 4.72 M/mm3 (3.65-5.03) 05/28/18 Unknown Hgb 12.3 gm/dl (11.8-15.2) 05/28/18 Unknown Hct 38.2 % (35.5-45.6) 05/28/18 Unknown MCV 81 fl (84-94) L 05/28/18 Unknown MCH 26 pg (28-32) L 05/28/18 Unknown MCHC 32 % (32-34) 05/28/18 Unknown RDW 17.2 % (13.2-15.2) H 05/28/18 Unknown Plt Count 101 K/mm3 (140-440) L 05/28/18 Unknown Lymph % (Auto) 11.8 % (13.4-35.0) L 05/28/18 Unknown [place] % (Auto) 5.6 % (0.0-7.3) 05/28/18 Unknown Eos % (Auto) 0.6 % (0.0-4.3) 05/28/18 Unknown Baso % (Auto) 0.6 % (0.0-1.8) 05/28/18 Unknown Lymph # 0.7 K/mm3 (1.2-5.4) L 05/28/18 Unknown [place] # 0.3 K/mm3 (0.0-0.8) 05/28/18 Unknown Eos # 0.0 K/mm3 (0.0-0.4) 05/28/18 Unknown Baso # 0.0 K/mm3 (0.0-0.1) 05/28/18 Unknown Seg Neutrophils % 81.4 % (40.0-70.0) H 05/28/18 Unknown Seg Neutrophils # 4.6 K/mm3 (1.8-7.7) 05/28/18 Unknown PT 13.9 Sec. (12.2-14.9) 05/28/18 Unknown INR 1.02 (0.87-1.13) 05/28/18 Unknown VBG pH 7.428 (7.320-7.420) H 05/28/18 Unknown Sodium 139 mmol/L (137-145) 05/30/18 06:40 Potassium 4.5 mmol/L (3.6-5.0) 05/30/18 06:40 Chloride 100.3 mmol/L (98-107) 05/30/18 06:40 Carbon Dioxide 23 mmol/L (22-30) 05/30/18 06:40 Anion Gap 20 mmol/L 05/30/18 06:40 BUN 35 mg/dL (9-20) H 05/30/18 06:40 Creatinine 8.5 mg/dL (0.8-1.5) H D 05/30/18 06:40 Estimated GFR 8 ml/min 05/30/18 06:40 BUN/Creatinine Ratio 4 % 05/30/18 06:40 Glucose 92 mg/dL (75-100) 05/30/18 06:40 POC Glucose 175 (70-105) H 05/31/18 16:00 Lactic Acid 0.70 mmol/L (0.7-2.0) 05/29/18 01:22 Calcium 9.1 mg/dL (8.4-10.2) 05/30/18 06:40 Total Bilirubin 0.80 mg/dL (0.1-1.2) 05/28/18 Unknown AST 54 units/L (5-40) H 05/28/18 Unknown ALT 30 units/L (7-56) 05/28/18 Unknown Alkaline Phosphatase 117 units/L (35-129) 05/28/18 Unknown Ammonia 28.0 umol/L (25-60) 05/29/18 08:14 Total Protein 8.5 g/dL (6.3-8.2) H 05/28/18 Unknown Albumin 4.1 g/dL (3.9-5) 05/28/18 Unknown Albumin/Globulin Ratio 0.9 % 05/28/18 Unknown Lipase 31 units/L (13-60) 05/28/18 Unknown Urine Color Yellow (Yellow) 05/28/18 13:32 Urine Turbidity Clear (Clear) 05/28/18 13:32 Urine pH 6.0 (5.0-7.0) 05/28/18 13:32 Ur Specific [place] 1.014 (1.003-1.030) 05/28/18 13:32 Urine Protein >500 mg/dL (Negative) 05/28/18 13:32 Urine Glucose (UA) 50 mg/dL (Negative) 05/28/18 13:32 Urine Ketones Neg mg/dL (Negative) 05/28/18 13:32 Urine Blood Neg (Negative) 05/28/18 13:32 Urine Nitrite Neg (Negative) 05/28/18 13:32 Urine Bilirubin Neg (Negative) 05/28/18 13:32 Urine Urobilinogen < 2.0 mg/dL (<2.0) 05/28/18 13:32 Ur Leukocyte Esterase Neg (Negative) 05/28/18 13:32 Urine WBC (Auto) < 1.0 /HPF (0.0-6.0) 05/28/18 13:32 Urine RBC (Auto) 2.0 /HPF (0.0-6.0) 05/28/18 13:32 U Epithel Cells (Auto) 1.0 /HPF (0-13.0) 05/28/18 13:32 Random Vancomycin 9.2 ug/mL (0-40.0) 05/31/18 05:29 Hep Bs Antigen Non-reactive (Negative) 05/31/18 10:05 Hep B Core IgM Ab Non-reactive (NonReactive) 05/31/18 10:05 Hepatitis C Antibody Reactive (NonReactive) A 05/31/18 10:05
[2018-05-31] MEDS: AMBIEN PO PRN (21:48)
[2018-05-31] MEDS ORDERED: ZOSYN/NS 3.375GM/50ML 3.375 GM/50 ML BAG IV SCH (23:00)
[2018-05-31] MEDS: ZOSYN/NS 2.25 GM/50ML 2.25 GM/50 ML BAG IV SCH (23:37)
[2018-06-01] MEDS: ZOSYN/NS 2.25 GM/50ML 2.25 GM/50 ML BAG IV SCH (05:28)
[2018-06-01 05:38] LABS: Hemoglobin 10.6 gm/dl (11.8-15.2); Mean Corpuscular HGB Conc 32 % (32-34); Mean Corpuscular Volume 81 fl (84-94); Platelet Count 110 K/mm3 (140-440); Red Blood Count 4.08 M/mm3 (3.65-5.03); Red Cell Distribution Width 17.2 % (13.2-15.2)
[2018-06-01 05:56] LABS: Calcium 8.6 mg/dL (8.4-10.2)
[2018-06-01 06:05] LABS: Mean Corpuscular Hemoglobin 26 pg (28-32)
[2018-06-01 08:50] LABS: Alanine Aminotransferase 28 units/L (7-56); Albumin 3.5 g/dL (3.9-5)
[2018-06-01 08:54] LABS: Bilirubin,Direct < 0.2 mg/dL (0-0.2)
--- NOTE | 2018-06-01 08:58 | Progress Note ---
Assessment and Plan 62-year-old male with ESRD on hemodialysis, hypertension, diabetes mellitus admitted with: #1 Gram negative bacteremia, blood culture from HD cath positive: Source likely HD catheter. AVF site infection seems unlikely. Start IV Cefepime 1 gm q24 hrs. Discussed plan with Dr. Farmer from Vascular Surgery, plan to remove current HD catheter. Initially, we planned to exchange the HD catheter, however , now with positive blood cultures, would prefer a line holiday if possible. Repeat blood cultures after line removal, will need negative cultures x 48 hours before a new line can be placed. Continue IV Vancomycin for now. #2 ESRD: On hemodialysis via a tunneled dialysis catheter: If patient develops any hemodynamic instability, recommend stat removal of HD catheter. Continue Renally dosed antibiotics. Recs: -Started Cefepime 1 gm every 24 hours -Discontinued Zosyn, anaerobic coverage is not needed -Discussed plan with Dr. Farmer from Vascular Surgery, plan to remove current HD catheter. Initially, we planned to exchange the HD catheter, however, now with positive blood cultures, would prefer a line holiday if possible - Repeat blood cultures after line removal, will need negative cultures x 48 hours before a new line can be placed - Continue IV Vancomycin for now, will d/c if no GPC growth on finalization Plan also discussed with Dr. Andino from Nephrology. [facility] M: [phone] O:[phone] Subjective Date of service: 06/01/18 Principal diagnosis: esrd Interval history: Patient was sitting up in bed. Patient stated that he was feeling beter today. Discussed plan with patient concerning HD catheter removal. Current Antimicrobials Vancomycin Zosyn Previous Antimicrobials Objective - Exam Narrative Exam: Constitutional: Alert, cooperative. No acute distress Head, Ears, Nose: Normocephalic, atraumatic. External ears, nose normal Eyes: Conjunctivae/corneas clear. No icterus. No ptosis. Neck: Supple, no meningeal signs Cardiovascular: S1, S2 normal. Respiratory: Good air entry, clear to auscultation bilaterally GI: Soft, non-tender; bowel sounds normal. No peritoneal signs Musculoskeletal: No pedal edema, no cyanosis. Left arm AVF site with thrill, there is no significant warmth or tenderness, no open wound or drainage. Right neck HD cath c/d/i Skin: No rash or abscess Hem/Lymphatic: No palpable cervical or supraclavicular nodes. No lymphangitis Psych: Mood ok. Affect normal Neurological: Awake, alert, oriented. No gross abnormality - Constitutional Vitals: Vital Signs Temp Pulse Resp BP Pulse Ox 99.1 F 73 20 142/74 96 06/01/18 05:54 06/01/18 05:54 06/01/18 05:54 06/01/18 05:54 06/01/18 05:54 Temperature -Last 24 Hours Temperature 99.1 F Temperature 98.0 F Temperature 102.1 F Temperature 101.9 F Temperature 100.1 F Temperature 99.3 F - Labs CBC & Chem 7: 06/01/18 05:06 06/01/18 05:06 Labs: Abnormal lab results 05/31/18 05/31/18 05/31/18 Range/Units 10: 16:00 21:36 Hgb (11.8-15.2) gm/dl Hct (35.5-45.6) % MCV (84-94) fl MCH (28-32) pg RDW (13.2-15.2) % Plt Count (140-440) K/mm3 Potassium (3.6-5.0) mmol/L BUN (9-20) mg/dL Creatinine (0.8-1.5) mg/dL Glucose (75-100) mg/dL POC Glucose 175 H 193 H (70-105) Lactic Acid (0.7-2.0) mmol/L AST (5-40) units/L Albumin (3.9-5) g/dL Hepatitis C Antibody Reactive A (NonReactive) 05/31/18 06/01/18 06/01/18 Range/Units 21:54 05:06 05:06 Hgb 10.6 L (11.8-15.2) gm/dl Hct 33.0 L (35.5-45.6) % MCV 81 L (84-94) fl MCH 26 L (28-32) pg RDW 17.2 H (13.2-15.2) % Plt Count 110 L (140-440) K/mm3 Potassium 3.4 L D (3.6-5.0) mmol/L BUN 30 H (9-20) mg/dL Creatinine 7.0 H (0.8-1.5) mg/dL Glucose 101 H (75-100) mg/dL POC Glucose (70-105) Lactic Acid 2.20 H* (0.7-2.0) mmol/L AST (5-40) units/L Albumin (3.9-5) g/dL Hepatitis C Antibody (NonReactive) 06/01/18 Range/Units 05:06 Hgb (11.8-15.2) gm/dl Hct (35.5-45.6) % MCV (84-94) fl MCH (28-32) pg RDW (13.2-15.2) % Plt Count (140-440) K/mm3 Potassium (3.6-5.0) mmol/L BUN (9-20) mg/dL Creatinine (0.8-1.5) mg/dL Glucose (75-100) mg/dL POC Glucose (70-105) Lactic Acid (0.7-2.0) mmol/L AST 70 H (5-40) units/L Albumin 3.5 L (3.9-5) g/dL Hepatitis C Antibody (NonReactive)
--- NOTE | 2018-06-01 10:13 | Progress Note ---
Assessment and Plan Impression: * ESRD * fever * HTN * anemia in ESRD * Type 2 DM Plan: * continue HD q TTHSAT * uf as tolerated with HD * daily lytes/cbc * vasc surgery input noted * iv abx per id * chillis with dialysis via perm cath, will need catheter exchange, ? timing of cultures vs first abx administration, will not continue to use catheter if chills continue with HD * renal diet Subjective Date of service: 06/01/18 Principal diagnosis: esrd Interval history: resting well in bed today Objective - Exam Narrative Exam: Not in cardiopulmonary distress. The patient appeared well nourished and normally developed. Vital signs as documented. Head exam is unremarkable. No scleral icterus . Neck is without jugular venous distension, thyromegaly, or carotid bruits. Lungs are clear to auscultation. Cardiac exam reveals regular rate and Rhythm. Abdominal exam reveals normal bowel sounds, no masses, no organomegaly and no aortic enlargement. Extremities left UE swelling at the AVF site. POLICY CHANGE CLERK: Alert and oriented 3. No focal weakness - Vital Signs Vital signs: Vital Signs - 12hr 05/31/18 06/01/18 23:30 05:54 Temperature 98.0 F 99.1 F Pulse Rate 75 73 Respiratory 20 20 Rate Blood Pressure 146/70 142/74 O2 Sat by Pulse 94 96 Oximetry - Lab 06/01/18 05:06 06/01/18 05:06 Most recent lab results Calcium 8.6 mg/dL (8.4-10.2) 06/01/18 05:06
[2018-06-01] MEDS: LASIX PO SCH (11:04)
[2018-06-01] MEDS: NEURONTIN PO SCH ×2 (11:04→22:20)
[2018-06-01] MEDS: PEPCID PO SCH ×2 (11:04→22:19)
[2018-06-01] MEDS: VITAMIN D3 PO SCH (11:04)
[2018-06-01] MEDS: NORVASC PO SCH (11:04)
[2018-06-01] MEDS: COREG PO SCH ×2 (11:05→22:19)
[2018-06-01] MEDS: APRESOLINE PO SCH ×2 (11:05→22:18)
[2018-06-01] MEDS: BABY ASPIRIN PO SCH (11:06)
[2018-06-01] MEDS: SODIUM CHLORIDE FLUSH SYRINGE 10 ML IV SCH (11:06)
--- NOTE | 2018-06-01 12:36 | Event Note ---
Date: 06/01/18 The patient with persistent fevers and normal white count. Per discussion with infectious disease, we'll plan on removing patient's indwelling tunneled hemodialysis catheter tomorrow and placing a new tunneled hemodialysis catheter tomorrow.
--- NOTE | 2018-06-01 13:45 | Event Note ---
Date: 06/01/18 BCX positive foe GNR, will pull catheter after HD tomorrow
--- NOTE | 2018-06-01 15:39 | Progress Note ---
Assessment and Plan Assessment and plan: 62-year-old -[place] female with past medical history significant for hypertension, ESRD on hemodialysis, diabetes mellitus presented to the emergency department with complaints of abdominal pain, pain, swelling of the LUE and fever Left upper extremity swelling - No evidence of AVG infection - Vascular surgery consult noted Sepsis secondary to Gram negative bactermia from HD catheter positive - HD catheter to be removed tomorrow following HD - ID consulted and now on vanco - No new fever today - Started Cefepime 1 gm every 24 hours - Discontinued Zosyn, anaerobic coverage is not needed - Discussed with with ID Dr HAMLIN ESRD on hemodialysis - Nephrology is following Liver Cirrhosis -?etiology Hepatic cyst vs hemangioma -follow. May need further review with noted fever if no other source identified Nonobstructing Bilateral renal calcification -Dialysis patient Peritoneal irritation - no acute finding in the imaging study Diabetes Mellitus - On insulin DVT prophylaxis - On heparin Disposition - Continue inpatient care History Interval history: Patient seen this morning, reports some improvement. No new fever reported today Hospitalist Physical - Physical exam Narrative exam: Not in cardiopulmonary distress. The patient appeared well nourished and normally developed. Vital signs as documented. Head exam is unremarkable. No scleral icterus . Neck is without jugular venous distension, thyromegaly, or carotid bruits. Lungs are clear to auscultation. Cardiac exam reveals regular rate and Rhythm. Abdominal exam reveals normal bowel sounds, no masses, no organomegaly and no aortic enlargement. Extremities left UE swelling improving at the AVF site. 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 No focal weakness. - Constitutional Vitals: Temp Pulse Resp BP Pulse Ox 98.3 F 74 20 142/63 96 06/01/18 11:47 06/01/18 11:47 06/01/18 11:47 06/01/18 11:47 06/01/18 11:47 General appearance: Present: no acute distress Results - Labs CBC & Chem 7: 06/01/18 05:06 06/01/18 05:06 Labs: Laboratory Last Values WBC 9.2 K/mm3 (4.5-11.0) 06/01/18 05:06 RBC 4.08 M/mm3 (3.65-5.03) 06/01/18 05:06 Hgb 10.6 gm/dl (11.8-15.2) L 06/01/18 05:06 Hct 33.0 % (35.5-45.6) L 06/01/18 05:06 MCV 81 fl (84-94) L 06/01/18 05:06 MCH 26 pg (28-32) L 06/01/18 05:06 MCHC 32 % (32-34) 06/01/18 05:06 RDW 17.2 % (13.2-15.2) H 06/01/18 05:06 Plt Count 110 K/mm3 (140-440) L 06/01/18 05:06 Lymph % (Auto) 11.8 % (13.4-35.0) L 05/28/18 Unknown [place] % (Auto) 5.6 % (0.0-7.3) 05/28/18 Unknown Eos % (Auto) 0.6 % (0.0-4.3) 05/28/18 Unknown Baso % (Auto) 0.6 % (0.0-1.8) 05/28/18 Unknown Lymph # 0.7 K/mm3 (1.2-5.4) L 05/28/18 Unknown [place] # 0.3 K/mm3 (0.0-0.8) 05/28/18 Unknown Eos # 0.0 K/mm3 (0.0-0.4) 05/28/18 Unknown Baso # 0.0 K/mm3 (0.0-0.1) 05/28/18 Unknown Seg Neutrophils % 81.4 % (40.0-70.0) H 05/28/18 Unknown Seg Neutrophils # 4.6 K/mm3 (1.8-7.7) 05/28/18 Unknown PT 13.9 Sec. (12.2-14.9) 05/28/18 Unknown INR 1.02 (0.87-1.13) 05/28/18 Unknown VBG pH 7.428 (7.320-7.420) H 05/28/18 Unknown Sodium 137 mmol/L (137-145) 06/01/18 05:06 Potassium 3.4 mmol/L (3.6-5.0) L D 06/01/18 05:06 Chloride 98.6 mmol/L (98-107) 06/01/18 05:06 Carbon Dioxide 25 mmol/L (22-30) 06/01/18 05:06 Anion Gap 17 mmol/L 06/01/18 05:06 BUN 30 mg/dL (9-20) H 06/01/18 05:06 Creatinine 7.0 mg/dL (0.8-1.5) H 06/01/18 05:06 Estimated GFR 10 ml/min 06/01/18 05:06 BUN/Creatinine Ratio 4 % 06/01/18 05:06 Glucose 101 mg/dL (75-100) H 06/01/18 05:06 POC Glucose 157 (70-105) H 06/01/18 11:16 Lactic Acid 1.60 mmol/L (0.7-2.0) 05/31/18 23:01 Calcium 8.6 mg/dL (8.4-10.2) 06/01/18 05:06 Total Bilirubin 0.60 mg/dL (0.1-1.2) 06/01/18 05:06 Direct Bilirubin < 0.2 mg/dL (0-0.2) 06/01/18 05:06 Indirect Bilirubin 0.4 mg/dL 06/01/18 05:06 AST 70 units/L (5-40) H 06/01/18 05:06 ALT 28 units/L (7-56) 06/01/18 05:06 Alkaline Phosphatase 119 units/L (35-129) 06/01/18 05:06 Ammonia 28.0 umol/L (25-60) 05/29/18 08:14 Total Protein 7.9 g/dL (6.3-8.2) 06/01/18 05:06 Albumin 3.5 g/dL (3.9-5) L 06/01/18 05:06 Albumin/Globulin Ratio 0.8 % 06/01/18 05:06 Lipase 31 units/L (13-60) 05/28/18 Unknown Urine Color Yellow (Yellow) 05/28/18 13:32 Urine Turbidity Clear (Clear) 05/28/18 13:32 Urine pH 6.0 (5.0-7.0) 05/28/18 13:32 Ur Specific [place] 1.014 (1.003-1.030) 05/28/18 13:32 Urine Protein >500 mg/dL (Negative) 05/28/18 13:32 Urine Glucose (UA) 50 mg/dL (Negative) 05/28/18 13:32 Urine Ketones Neg mg/dL (Negative) 05/28/18 13:32 Urine Blood Neg (Negative) 05/28/18 13:32 Urine Nitrite Neg (Negative) 05/28/18 13:32 Urine Bilirubin Neg (Negative) 05/28/18 13:32 Urine Urobilinogen < 2.0 mg/dL (<2.0) 05/28/18 13:32 Ur Leukocyte Esterase Neg (Negative) 05/28/18 13:32 Urine WBC (Auto) < 1.0 /HPF (0.0-6.0) 05/28/18 13:32 Urine RBC (Auto) 2.0 /HPF (0.0-6.0) 05/28/18 13:32 U Epithel Cells (Auto) 1.0 /HPF (0-13.0) 05/28/18 13:32 Random Vancomycin 9.2 ug/mL (0-40.0) 05/31/18 05:29 Hep Bs Antigen Non-reactive (Negative) 05/31/18 10:05 Hep B Core IgM Ab Non-reactive (NonReactive) 05/31/18 10:05 Hepatitis C Antibody Reactive (NonReactive) A 05/31/18 10:05
[2018-06-01] MEDS: MAXIPIME/NS 1 GM/100 ML 1 GM/100 ML BAG IV SCH (17:12)
[2018-06-02] MEDS: SODIUM CHLORIDE FLUSH SYRINGE 10 ML IV SCH ×3 (08:53→23:00)
--- NOTE | 2018-06-02 10:07 | Progress Note ---
Assessment and Plan 62-year-old male with ESRD on hemodialysis, hypertension, diabetes mellitus admitted with: #1 Gram negative bacteremia, blood culture from HD cath positive: Source HD catheter. AVF site infection seems unlikely, Blood cultures remain negative. Continue IV Cefepime 1 gm q24 hrs. HD Catheter removal scheduled today after HD. Repeat blood cultures after line removal. Will discontinue vancomycin. #2 ESRD: On hemodialysis via a tunneled dialysis catheter: The left upper extremity AV fistula was used today for HD. No issues with HD, as a result removal of the right internal jugular tunneled catheter was performed today. Per vascular, no need for exchange. Cultures sent after line removal. Recs: -continue Cefepime 1 gm every 24 hours, D2 -discontinue vancomycin -removal of HD catheter today after HD. - Repeat blood cultures after line removal -Will determine length of antibiotic treatment outpatient, once cultures are reviewed [facility] M: [phone] O:[phone] Subjective Date of service: 06/02/18 Principal diagnosis: esrd Interval history: Patient was laying flat in HD. Patient stated that he was comfortable today and reported no pain, fever or chills. Current Antimicrobials Vancomycin Zosyn Previous Antimicrobials Objective - Exam Narrative Exam: Constitutional: Alert, cooperative. No acute distress Head, Ears, Nose: Normocephalic, atraumatic. External ears, nose normal Eyes: Conjunctivae/corneas clear. No icterus. No ptosis. Neck: Supple, no meningeal signs Cardiovascular: S1, S2 normal. Respiratory: Good air entry, clear to auscultation bilaterally GI: Soft, non-tender; bowel sounds normal. No peritoneal signs Musculoskeletal: No pedal edema, no cyanosis. Left arm AVF site with thrill, there is no significant warmth or tenderness, no open wound or drainage. Right neck HD cath c/d/i Skin: No rash or abscess Hem/Lymphatic: No palpable cervical or supraclavicular nodes. No lymphangitis Psych: Mood ok. Affect normal Neurological: Awake, alert, oriented. No gross abnormality - Constitutional Vitals: Vital Signs Temp Pulse Resp BP Pulse Ox 98.5 F 73 18 136/62 92 06/02/18 04:32 06/02/18 04:32 06/02/18 04:32 06/02/18 04:32 06/02/18 04:32 Temperature -Last 24 Hours Temperature 98.5 F Temperature 98.3 F Temperature 98.3 F Temperature 98.3 F Temperature 98.2 F Temperature 98.3 F - Labs CBC & Chem 7: 06/01/18 05:06 06/01/18 05:06 Labs: Abnormal lab results 06/01/18 06/01/18 Range/Units 11:16 17:03 POC Glucose 157 H 107 H (70-105)
[2018-06-02] MEDS: APRESOLINE PO SCH ×2 (10:08→23:02)
[2018-06-02] MEDS: COREG PO SCH ×2 (10:20→23:01)
--- NOTE | 2018-06-02 11:40 | Progress Note ---
Assessment and Plan Impression: * ESRD * fever * HTN * anemia in ESRD * Type 2 DM * gram negative bacteremia Plan: * continue HD q TTHSAT * uf as tolerated with HD * daily lytes/cbc * vasc surgery input noted--plans for exchange noted * iv abx per id * renal diet Subjective Date of service: 06/02/18 Principal diagnosis: esrd Interval history: resting well in bed today Objective - Exam Narrative Exam: Not in cardiopulmonary distress. The patient appeared well nourished and normally developed. Vital signs as documented. Head exam is unremarkable. No scleral icterus . Neck is without jugular venous distension, thyromegaly, or carotid bruits. Lungs are clear to auscultation. Cardiac exam reveals regular rate and Rhythm. Abdominal exam reveals normal bowel sounds, no masses, no organomegaly and no aortic enlargement. Extremities left UE swelling at the AVF site. MATERIAL CONTROL SPECIALIST: Alert and oriented 3. No focal weakness - Vital Signs Vital signs: Vital Signs - 12hr 06/02/18 06/02/18 06/02/18 00:07 00:08 00:09 Temperature 98.3 F 98.3 F 98.3 F Pulse Rate 76 76 74 Respiratory 20 20 20 Rate Blood Pressure 145/58 O2 Sat by Pulse 89 92 92 Oximetry 06/02/18 06/02/18 06/02/18 04:32 09:10 09:55 Temperature 98.5 F 98.5 F Pulse Rate 73 63 66 Respiratory 18 18 Rate Blood Pressure 136/62 157/75 157/80 O2 Sat by Pulse 92 Oximetry 06/02/18 06/02/18 06/02/18 10:00 10:15 10:30 Temperature Pulse Rate 63 64 63 Respiratory Rate Blood Pressure 168/88 168/86 166/85 O2 Sat by Pulse Oximetry 06/02/18 10:45 Temperature Pulse Rate 62 Respiratory Rate Blood Pressure 176/84 O2 Sat by Pulse Oximetry - Lab 06/01/18 05:06 06/01/18 05:06 Most recent lab results Calcium 8.6 mg/dL (8.4-10.2) 06/01/18 05:06
--- NOTE | 2018-06-02 12:09 | Progress Note ---
Assessment and Plan Assessment and plan: 62-year-old -[place] African female with past medical history significant for hypertension, ESRD on hemodialysis, diabetes mellitus presented to the emergency department with complaints of abdominal pain, pain, swelling of the LUE and fever Left upper extremity swelling - No evidence of AVG infection - Vascular surgery consult noted Sepsis secondary to Gram negative bactermia from HD catheter positive - HD catheter to be removed tomorrow following HD - ID consulted and now on vanco - No new fever today - Started Cefepime 1 gm every 24 hours - Discontinued Zosyn, anaerobic coverage is not needed - Discussed with with ID Dr HAMLIN ESRD on hemodialysis - Nephrology is following Liver Cirrhosis -?etiology Hepatic cyst vs hemangioma -follow. May need further review with noted fever if no other source identified Nonobstructing Bilateral renal calcification -Dialysis patient Peritoneal irritation - no acute finding in the imaging study Diabetes Mellitus - On insulin DVT prophylaxis - On heparin Disposition - Continue inpatient care History Interval history: Patient seen this morning, reports some improvement. No new fever reported today Hospitalist Physical - Physical exam Narrative exam: Not in cardiopulmonary distress. The patient appeared well nourished and normally developed. Vital signs as documented. Head exam is unremarkable. No scleral icterus . Neck is without jugular venous distension, thyromegaly, or carotid bruits. Lungs are clear to auscultation. Cardiac exam reveals regular rate and Rhythm. Abdominal exam reveals normal bowel sounds, no masses, no organomegaly and no aortic enlargement. Extremities left UE swelling improving at the AVF site. 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 No focal weakness. - Constitutional Vitals: Temp Pulse Resp BP Pulse Ox 98.5 F 62 18 176/84 92 06/02/18 09:10 06/02/18 10:45 06/02/18 09:10 06/02/18 10:45 06/02/18 04:32 General appearance: Present: no acute distress Results - Labs CBC & Chem 7: 06/01/18 05:06 06/01/18 05:06 Labs: Laboratory Last Values WBC 9.2 K/mm3 (4.5-11.0) 06/01/18 05:06 RBC 4.08 M/mm3 (3.65-5.03) 06/01/18 05:06 Hgb 10.6 gm/dl (11.8-15.2) L 06/01/18 05:06 Hct 33.0 % (35.5-45.6) L 06/01/18 05:06 MCV 81 fl (84-94) L 06/01/18 05:06 MCH 26 pg (28-32) L 06/01/18 05:06 MCHC 32 % (32-34) 06/01/18 05:06 RDW 17.2 % (13.2-15.2) H 06/01/18 05:06 Plt Count 110 K/mm3 (140-440) L 06/01/18 05:06 Lymph % (Auto) 11.8 % (13.4-35.0) L 05/28/18 Unknown [place] % (Auto) 5.6 % (0.0-7.3) 05/28/18 Unknown Eos % (Auto) 0.6 % (0.0-4.3) 05/28/18 Unknown Baso % (Auto) 0.6 % (0.0-1.8) 05/28/18 Unknown Lymph # 0.7 K/mm3 (1.2-5.4) L 05/28/18 Unknown [place] # 0.3 K/mm3 (0.0-0.8) 05/28/18 Unknown Eos # 0.0 K/mm3 (0.0-0.4) 05/28/18 Unknown Baso # 0.0 K/mm3 (0.0-0.1) 05/28/18 Unknown Seg Neutrophils % 81.4 % (40.0-70.0) H 05/28/18 Unknown Seg Neutrophils # 4.6 K/mm3 (1.8-7.7) 05/28/18 Unknown PT 13.9 Sec. (12.2-14.9) 05/28/18 Unknown INR 1.02 (0.87-1.13) 05/28/18 Unknown VBG pH 7.428 (7.320-7.420) H 05/28/18 Unknown Sodium 137 mmol/L (137-145) 06/01/18 05:06 Potassium 3.4 mmol/L (3.6-5.0) L D 06/01/18 05:06 Chloride 98.6 mmol/L (98-107) 06/01/18 05:06 Carbon Dioxide 25 mmol/L (22-30) 06/01/18 05:06 Anion Gap 17 mmol/L 06/01/18 05:06 BUN 30 mg/dL (9-20) H 06/01/18 05:06 Creatinine 7.0 mg/dL (0.8-1.5) H 06/01/18 05:06 Estimated GFR 10 ml/min 06/01/18 05:06 BUN/Creatinine Ratio 4 % 06/01/18 05:06 Glucose 101 mg/dL (75-100) H 06/01/18 05:06 POC Glucose 93 (70-105) 06/02/18 07:55 Lactic Acid 1.60 mmol/L (0.7-2.0) 05/31/18 23:01 Calcium 8.6 mg/dL (8.4-10.2) 06/01/18 05:06 Total Bilirubin 0.60 mg/dL (0.1-1.2) 06/01/18 05:06 Direct Bilirubin < 0.2 mg/dL (0-0.2) 06/01/18 05:06 Indirect Bilirubin 0.4 mg/dL 06/01/18 05:06 AST 70 units/L (5-40) H 06/01/18 05:06 ALT 28 units/L (7-56) 06/01/18 05:06 Alkaline Phosphatase 119 units/L (35-129) 06/01/18 05:06 Ammonia 28.0 umol/L (25-60) 05/29/18 08:14 Total Protein 7.9 g/dL (6.3-8.2) 06/01/18 05:06 Albumin 3.5 g/dL (3.9-5) L 06/01/18 05:06 Albumin/Globulin Ratio 0.8 % 06/01/18 05:06 Lipase 31 units/L (13-60) 05/28/18 Unknown Urine Color Yellow (Yellow) 05/28/18 13:32 Urine Turbidity Clear (Clear) 05/28/18 13:32 Urine pH 6.0 (5.0-7.0) 05/28/18 13:32 Ur Specific [place] 1.014 (1.003-1.030) 05/28/18 13:32 Urine Protein >500 mg/dL (Negative) 05/28/18 13:32 Urine Glucose (UA) 50 mg/dL (Negative) 05/28/18 13:32 Urine Ketones Neg mg/dL (Negative) 05/28/18 13:32 Urine Blood Neg (Negative) 05/28/18 13:32 Urine Nitrite Neg (Negative) 05/28/18 13:32 Urine Bilirubin Neg (Negative) 05/28/18 13:32 Urine Urobilinogen < 2.0 mg/dL (<2.0) 05/28/18 13:32 Ur Leukocyte Esterase Neg (Negative) 05/28/18 13:32 Urine WBC (Auto) < 1.0 /HPF (0.0-6.0) 05/28/18 13:32 Urine RBC (Auto) 2.0 /HPF (0.0-6.0) 05/28/18 13:32 U Epithel Cells (Auto) 1.0 /HPF (0-13.0) 05/28/18 13:32 Random Vancomycin 17.2 ug/mL (0-40.0) 06/02/18 05:10 Hep Bs Antigen Non-reactive (Negative) 05/31/18 10:05 Hep B Core IgM Ab Non-reactive (NonReactive) 05/31/18 10:05 Hepatitis C Antibody Reactive (NonReactive) A 05/31/18 10:05
[2018-06-02 12:26] LABS: Hepatitis A Antibody IgM NonReactive (NonReactive)
[2018-06-02] MEDS ORDERED: VERSED ONE (12:53)
[2018-06-02] MEDS ORDERED: SUBLIMAZE ONE (12:53)
[2018-06-02] MEDS ORDERED: HEPARIN/NS 5000 UNIT/500ML(CATH LAB) 0 ML IR ONE (12:55)
[2018-06-02] MEDS ORDERED: NACL 0.9% 250ML 0 ML ONE (12:55)
[2018-06-02] MEDS ORDERED: XYLOCAINE 1%/ EPI 1:100,000 INFILTRATI ONE (12:55)
[2018-06-02] MEDS ORDERED: ANCEF/STERILE WATER 2 GM/20 ML 0 GM/0 ML SYRINGE IV ONE (12:56)
[2018-06-02] MEDS ORDERED: HEPARIN 10,000 UNITS/10 ML ONE (12:56)
--- NOTE | 2018-06-02 13:50 | Progress Note ---
Assessment and Plan 62-year-old male with end-stage renal disease with bacteremia from catheter with left upper extremity AV fistula. The left upper extremity AV fistula is actively being used at 400 flow rate without issue. Discussed issue again with Dr. Burns. Since no issues with dialysis, can perform catheter removal today instead of exchange. Subjective Date of service: 06/02/18 Principal diagnosis: esrd Interval history: Actively receiving dialysis at high flow rates without issue. Objective - Constitutional Vitals: Vital Signs - 12hr 06/02/18 06/02/18 06/02/18 04:32 09:10 09:55 Temperature 98.5 F 98.5 F Pulse Rate 73 63 66 Respiratory 18 18 Rate Blood Pressure 136/62 157/75 157/80 O2 Sat by Pulse 92 Oximetry 06/02/18 06/02/18 06/02/18 10:00 10:15 10:30 Temperature Pulse Rate 63 64 63 Respiratory Rate Blood Pressure 168/88 168/86 166/85 O2 Sat by Pulse Oximetry 06/02/18 10:45 Temperature Pulse Rate 62 Respiratory Rate Blood Pressure 176/84 O2 Sat by Pulse Oximetry General appearance: Present: no acute distress - EENT Eyes: EOM intact ENT: hearing intact - Respiratory Respiratory effort: normal Extremities: normal temperature, normal color, abnormal (left arm being accessed at 400 flow rates) - Psychiatric Psychiatric: appropriate mood/affect, cooperative - Labs CBC & Chem 7: 06/01/18 05:06 06/01/18 05:06 Labs: Abnormal lab results 06/01/18 Range/Units 17:03 POC Glucose 107 H (70-105)
--- NOTE | 2018-06-02 14:20 | Operative Report ---
Operative Report Operative Report: EXAM: Tunneled catheter removal DATE: 06/02/18 INDICATION: Bacteremia requiring permcath removal. MEDICATIONS: Please see nursing report for full details. DIGITAL SALES REPRESENTATIVE: ERASMO GLEASON MD CONTRAST: None PROCEDURE: The risks, benefits, and alternatives were discussed; written informed consent was obtained. The patient was positioned with the head towards the contralateral side. The tunneled catheter was prepped and draped in a sterile fashion. Lidocaine was infiltrated at the dermatotomy site. Heparin was withdrawn from both lumens. Using a hemostat, blunt dissection was performed and the cuff was extracted. The catheter was extracted and pressure was held at the venotomy and dermatotomy site until hemostasis was achieved. Sterile bandage was then applied. The patient tolerated the procedure without issue. FINDINGS: Successful removal of the tunneled catheter. IMPRESSION: Successful removal of the right internal jugular tunneled catheter.
[2018-06-02] MEDS: PEPCID PO SCH ×2 (17:10→23:00)
[2018-06-02] MEDS: NEURONTIN PO SCH ×2 (17:10→23:02)
[2018-06-02] MEDS ORDERED: VANCOMYCIN/NS 1 GM/250 ML 1 GM/250 ML BAG IV SCH (18:00)
[2018-06-02] MEDS: LASIX PO SCH (18:02)
[2018-06-02] MEDS: VITAMIN D3 PO SCH (18:02)
[2018-06-02] MEDS: BABY ASPIRIN PO SCH (18:05)
[2018-06-02] MEDS: NORVASC PO SCH (18:06)
[2018-06-02] MEDS: MAXIPIME/NS 1 GM/100 ML 1 GM/100 ML BAG IV SCH (18:06)
--- NOTE | 2018-06-03 08:28 | Progress Note ---
Assessment and Plan 62-year-old male with ESRD on hemodialysis, hypertension, diabetes mellitus admitted with: #1 Gram negative bacteremia, blood culture from HD cath positive: Source HD catheter. Continue IV Cefepime 1 gm q24 hrs. HD Catheter removed 06/02. Repeat blood cultures after line removal. #2 ESRD: On hemodialysis via a tunneled dialysis catheter: The left upper extremity AV fistula was used today for HD. No issues with HD, as a result removal of the right internal jugular tunneled catheter was performed today. Per vascular, no need for exchange. Cultures sent after line removal. Recs: -continue Cefepime 1 gm every 24 hours while inpatient -follow-up on blood cultures -F/u with hepatology for reactive Hep C when discharged -upon discharge may transition to Ciprofloxacin 750mg PO every 24 hours, -Will determine length of antibiotic treatment outpatient, once cultures are reviewed Dr. Burns will be taking call from home on Wednesday , . He will be making rounds in the hospital on Wednesday. Please call for questions. Jessie Villa NP [facility] M: [phone] O:[phone] Subjective Date of service: 06/03/18 Principal diagnosis: esrd Interval history: Patient sitting on the side of bed. Patient stated that his left arm was hurting. Patient denied nausea or vomiting. Current Antimicrobials Zosyn Previous Antimicrobials Vancomycin Objective - Exam Narrative Exam: Constitutional: Alert, cooperative. No acute distress Head, Ears, Nose: Normocephalic, atraumatic. External ears, nose normal Eyes: Conjunctivae/corneas clear. No icterus. No ptosis. Neck: Supple, no meningeal signs Cardiovascular: S1, S2 normal. Respiratory: Good air entry, clear to auscultation bilaterally GI: Soft, non-tender; bowel sounds normal. No peritoneal signs Musculoskeletal: No pedal edema, no cyanosis. Left arm AVF site wrapped, there is no significant warmth or tenderness, no open wound or drainage. Right neck HD cath removed. Skin: No rash or abscess Hem/Lymphatic: No palpable cervical or supraclavicular nodes. No lymphangitis Psych: Mood ok. Affect normal Neurological: Awake, alert, oriented. No gross abnormality - Constitutional Vitals: Vital Signs Temp Pulse Resp BP Pulse Ox 99.4 F 73 24 145/61 98 06/03/18 04:18 06/03/18 04:18 06/03/18 04:18 06/03/18 04:18 06/03/18 04:18 Temperature -Last 24 Hours Temperature 99.4 F Temperature 98.7 F Temperature 98.0 F Temperature 98.2 F Temperature 98.5 F - Labs CBC & Chem 7: 06/01/18 05:06 06/01/18 05:06 Labs: Abnormal lab results 06/02/18 06/03/18 Range/Units 17:07 07:25 POC Glucose 229 H 119 H (70-105)
[2018-06-03] MEDS: NORVASC PO SCH (09:22)
[2018-06-03] MEDS: COREG PO SCH (09:22)
[2018-06-03] MEDS: NEURONTIN PO SCH (09:22)
[2018-06-03] MEDS: PEPCID PO SCH (09:22)
[2018-06-03] MEDS: VITAMIN D3 PO SCH (09:22)
[2018-06-03] MEDS: APRESOLINE PO SCH (09:23)
[2018-06-03] MEDS: BABY ASPIRIN PO SCH (09:23)
[2018-06-03] MEDS: SODIUM CHLORIDE FLUSH SYRINGE 10 ML IV SCH (09:24)
[2018-06-03] MEDS: LASIX PO SCH (09:25)
--- NOTE | 2018-06-03 09:52 | Progress Note ---
Assessment and Plan Impression: * ESRD * fever * HTN * anemia in ESRD * Type 2 DM * gram negative bacteremia Plan: * continue HD q TTHSAT * uf as tolerated with HD * daily lytes/cbc * vasc surgery input noted--s/p cath removal * iv abx per id * renal diet Subjective Date of service: 06/03/18 Principal diagnosis: esrd Interval history: resting well in bed today Objective - Exam Narrative Exam: Not in cardiopulmonary distress. The patient appeared well nourished and normally developed. Vital signs as documented. Head exam is unremarkable. No scleral icterus . Neck is without jugular venous distension, thyromegaly, or carotid bruits. Lungs are clear to auscultation. Cardiac exam reveals regular rate and Rhythm. Abdominal exam reveals normal bowel sounds, no masses, no organomegaly and no aortic enlargement. Extremities left UE swelling at the AVF site. JIRA DEVELOPER: Alert and oriented 3. No focal weakness - Vital Signs Vital signs: Vital Signs - 12hr 06/02/18 06/02/18 06/02/18 23:01 23:02 23:34 Temperature 98.7 F Pulse Rate 84 84 74 Respiratory 24 Rate Blood Pressure 156/77 156/77 166/78 O2 Sat by Pulse 97 Oximetry 06/03/18 06/03/18 06/03/18 04:18 09:22 09:23 Temperature 99.4 F Pulse Rate 73 Respiratory 24 Rate Blood Pressure 145/61 172/94 172/94 O2 Sat by Pulse 98 Oximetry - Lab 06/01/18 05:06 06/01/18 05:06 Most recent lab results Calcium 8.6 mg/dL (8.4-10.2) 06/01/18 05:06
--- NOTE | 2018-06-03 12:17 | Discharge Summary ---
Providers - Providers Date of Admission: 05/28/18 16:34 Attending physician: CORNELIO NGUYEN MD 05/28/18 15:52 Consult to Physician [CONS] Stat Comment: Consulting Provider: ERASMO GLEASON Physician Instructions: Reason For Exam: left AV Fistula swelling/fever 05/29/18 07:41 Consult to Physician [CONS] Routine Comment: Consulting Provider: LENARD VILLATORO Physician Instructions: Reason For Exam: ESRD on HD 05/30/18 08:26 Consult to Physician [CONS] Routine Comment: Consulting Provider: TARA HAMLIN Physician Instructions: Reason For Exam: sepsis, ?AVF infection Primary care physician: CONSUMER MARKETING ANALYST Hospitalization Reason for admission: sepsis Condition: Stable Hospital course: 62-year-old -[place] female with past medical history significant for hypertension, ESRD on hemodialysis, diabetes mellitus presented to the emergency department with complaints of abdominal pain, pain, swelling of the LUE and fever. Sepsis secondary to Gram negative bactermia - HD catheter removed - ID consulted patient culture was growing GNR has speciated as Enterobacter cloacae which is a known call center consultant of AmpC beta-lactamase (inducible beta- lactamase that hydrolyzes lower generation cephalosporins and penicillins), hence, continue IV cefepime while inpatient, upon discharge may transition to oral ciprofloxacin 750 mg daily for 10 days from date of HD catheter removal ( end date: 06/13/2018) if repeat blood cultures remain negative at 48 hours. Smasher opted to use Fortaz and will be given during dialysis. It was also arranged Left upper extremity swelling - No evidence of AVG infection - Vascular surgery consult noted- eventually HD catheter was removed. patient was able to get dialysis via AVG ESRD on hemodialysis - Nephrology Evaluated and continued HD Liver Cirrhosis -Likely due to Hepatits C - Recommended patient follow with ID outptient for further monitoring Hepatic cyst -follow. May need further review with noted fever if no other source identified Nonobstructing Bilateral renal calcification Peritoneal irritation - Resolved. no acute finding in the imaging study Diabetes Mellitus - On insulin Disposition: DC- TO HOME OR SELFCARE Time spent for discharge: 35 MINS Core Measure Documentation - Palliative Care Palliative Care/ Comfort Measures: Not Applicable - Core Measures Any of the following diagnoses?: none - VTE Discharge Requirements Deep Vein Thrombosis/Pulmonary Embolism Present on Admission: No Exam - Physical Exam Narrative exam: Not in cardiopulmonary distress. The patient appeared well nourished and normally developed. Vital signs as documented. Head exam is unremarkable. No scleral icterus . Neck is without jugular venous distension, thyromegaly, or carotid bruits. Lungs are clear to auscultation. Cardiac exam: reveals regular rate and Rhythm. Abdominal: exam reveals normal bowel sounds, no masses, no organomegaly and no aortic enlargement. Extremities: left UE swelling improving at the AVF site. HEALTH CARE COACH: Alert and oriented 3. No focal weakness. - Constitutional Vitals: Temp Pulse Resp BP Pulse Ox 99.4 F 73 24 172/94 98 06/03/18 04:18 06/03/18 04:18 06/03/18 04:18 06/03/18 09:23 06/03/18 04:18 Plan Activity: advance as tolerated, fall precautions Diet: renal Special Instructions: record daily BP diary, record blood sugar diary Additional Instructions: FORTAZ WILL BE ADMINISTERED BY NEPRHOLOGIST ON DIALYSIS DAYS Follow up with: DON KAY MD [Staff Physician] - 7 Days PRIMARY CAREMD [Primary Care Provider] - 3-5 Days TARA HAMLIN MD [Staff Physician] - 7 Days Prescriptions: Famotidine [Pepcid] 10 mg PO BID #30 tablet
[2018-06-03 12:56] VITALS: BP 131/65
== END 2018-06-03 13:10 | disposition home or self-care (01) | DRG 314 ==
LOC: ED 13:17 → 3A 16:34
PROVIDERS: ADMIT Internal Medicine; ATTEND Internal Medicine
PROC: 3E0234Z Introduction of Serum, Toxoid and Vaccine into Muscle, Percutaneous Approach (ICD-10-PCS; 2018-05-29)
PROC: 5A1D70Z Performance of Urinary Filtration, Intermittent, Less than 6 Hours Per Day (ICD-10-PCS; 2018-05-31)
PROC: 0JPT3XZ Removal of Tunneled Vascular Access Device from Trunk Subcutaneous Tissue and Fascia, Percutaneous Approach (ICD-10-PCS; principal; 2018-06-02)
PROC: 05PYX3Z Removal of Infusion Device from Upper Vein, External Approach (ICD-10-PCS; 2018-06-02)
PROC: 5A1D70Z Performance of Urinary Filtration, Intermittent, Less than 6 Hours Per Day (ICD-10-PCS; 2018-06-02)
DX: T82.7XXA Infection and inflammatory reaction due to other cardiac and vascular devices, implants and grafts, initial encounter (principal); A41.59 Other Gram-negative sepsis; N18.6 End stage renal disease; K65.9 Peritonitis, unspecified; D63.1 Anemia in chronic kidney disease; E87.1 Hypo-osmolality and hyponatremia; N25.81 Secondary hyperparathyroidism of renal origin; K74.60 Unspecified cirrhosis of liver; K76.89 Other specified diseases of liver; N28.89 Other specified disorders of kidney and ureter; B19.20 Unspecified viral hepatitis C without hepatic coma; F17.210 Nicotine dependence, cigarettes, uncomplicated; Y83.8 Other surgical procedures as the cause of abnormal reaction of the patient, or of later complication, without mention of misadventure at the time of the procedure; E11.22 Type 2 diabetes mellitus with diabetic chronic kidney disease; M19.90 Unspecified osteoarthritis, unspecified site; Z83.3 Family history of diabetes mellitus; Z82.49 Family history of ischemic heart disease and other diseases of the circulatory system; Z79.51 Long term (current) use of inhaled steroids; Z79.899 Other long term (current) drug therapy; Z79.82 Long term (current) use of aspirin; Z79.4 Long term (current) use of insulin; Z99.2 Dependence on renal dialysis; Z23 Encounter for immunization; Z71.6 Tobacco abuse counseling; Y92.89 Other specified places as the place of occurrence of the external cause
CPT/HCPCS: 36415; 36589; 71045; 74176; 80048; 80053; 80074; 80202; 81001; 82140; 82805; 82962; 83690; 85025; 85027; 85610; 87040; 87076; 87186; 90686; 90732; 93005; 93010; 96361; 96365; 96367; 96375; 99406; J0690; J0692; J1644; J1815; J2250; J2405; J2543; J3010; J3370; J7030; J7040; J7050

== ENCOUNTER 2019-06-22 06:47 | Inpatient (IN) | payer MEDICAID ==
[2019-06-22] MEDS ORDERED: APRESOLINE IV ONE (07:04)
--- NOTE | 2019-06-22 07:06 | Emergency Department Report ---
ED Chest Pain HPI - General Chief Complaint: Chest Pain Stated Complaint: CHEST PAIN Time Seen by Provider: 06/22/19 07:03 Source: patient, EMS Mode of arrival: Stretcher Limitations: No Limitations - History of Present Illness Initial Comments: pt is a 63-year-old male that presents emergency room with complaints of this pain. Patient states chest pain started 30 minutes prior to arrival. Patient states she was jogging to dialysis and developed chest pain. Patient states when he arrived at the dialysis center dialysis called 911. Patient brought in by EMS. Patient was given aspirin 325 mg by EMS. Patient denies shortness of breath. Patient states she still having chest pain. Patient states the chest pain is in his left chest and nonradiating. Patient states she is a history of CAD 5 on dialysis, hypertension, hyperlipidemia, diabetes, ND. MD Complaint: chest pain -: Sudden Onset: during exertion Pain Location: substernal, left chest Pain Radiation: none Severity: severe Severity scale (0 -10): 10 Quality: sharp Consistency: constant Improves With: rest Worsens With: exertion re: denies: nausea, vomting, diaphoresis, dyspnea, sense of impending doom Other Symptoms: denies: cough, fever, syncope, rash, acid taste in mouth, leg swelling, palpitations, burping Treatments Prior to Arrival: aspirin Aspirin use within the Past 7 Days: (1) Yes - Related Data On Oral Contraceptives: No Home Medications Medication Instructions Recorded Confirmed Last Taken ALBUTEROL Inhaler (OR & NICU) 2 puff IH QID PRN 05/17/18 09/24/18 09/01/18 [ProAir HFA Inhaler] 2 puff Amlodipine Besylate [Norvasc] 10 mg PO QDAY 05/17/18 09/24/18 09/22/18 10 mg Aspirin [Aspirin BABY CHEW TAB] 81 mg PO QDAY 05/17/18 09/24/18 09/21/18 81 mg Carvedilol 25 mg PO BID 05/17/18 09/24/18 09/22/18 25 mg Cholecalciferol (Vitamin D3) 1,000 unit PO QDAY 05/17/18 09/24/18 09/21/18 [Vitamin D3] 1000 units Gabapentin 300 mg PO BID 05/17/18 09/24/18 08/21/18 300 mg Insulin NPH Hum/Reg Insulin Hm 31 unit SQ QPM 05/17/18 09/24/18 09/21/18 [Relion Novolin 70-30 Vial] 15 units Insulin NPH Hum/Reg Insulin Hm 35 unit SQ QAM 05/17/18 09/24/18 09/21/18 [Relion Novolin 70-30 Vial] 35 units Previous Rx's Medication Instructions Recorded Last Taken Type Famotidine [Pepcid] 10 mg PO BID #30 tablet 06/03/18 Unknown Rx Allergies Allergy/AdvReac Type Severity Reaction Status Date / Time No Known Allergies Allergy Unverified 05/10/18 17:04 Heart Score - HEART Score History: Highly suspicious EKG: Significant ST-depression Age: 45-65 Risk factors: > 3 risk factors or hx of atherosclerotic disease Troponin: < normal limit HEART Score: 7 ED Review of Systems ROS: Stated complaint: CHEST PAIN Other details as noted in HPI Constitutional: denies: chills, fever Eyes: denies: eye pain, eye discharge, vision change ENT: denies: ear pain, throat pain Respiratory: denies: cough, shortness of breath, wheezing Cardiovascular: chest pain. denies: palpitations Endocrine: no symptoms reported Gastrointestinal: denies: abdominal pain, nausea, diarrhea Genitourinary: denies: urgency, dysuria Musculoskeletal: denies: back pain, joint swelling, arthralgia Skin: denies: rash, lesions Neurological: denies: headache, weakness, paresthesias Psychiatric: denies: anxiety, depression Hematological/Lymphatic: denies: easy bleeding, easy bruising ED Past Medical Hx - Past Medical History Previous Medical History?: Yes Hx Hypertension: Yes Hx Congestive Heart Failure: Yes Hx Diabetes: Yes Hx Renal Disease: Yes (HD) Hx Arthritis: Yes Hx COPD: No - Surgical History Past Surgical History?: Yes Additional Surgical History: LEFT UPPER ARM FISTULA - Family History Family history: no significant - Social History Smoking Status: Current Every Day Smoker Substance Use Type: None - Medications Home Medications: Home Medications Medication Instructions Recorded Confirmed Last Taken Type ALBUTEROL Inhaler (OR & NICU) 2 puff IH QID PRN 05/17/18 09/24/18 09/01/18 History [ProAir HFA Inhaler] 2 puff Amlodipine Besylate [Norvasc] 10 mg PO QDAY 05/17/18 09/24/18 09/22/18 History 10 mg Aspirin [Aspirin BABY CHEW TAB] 81 mg PO QDAY 05/17/18 09/24/18 09/21/18 History 81 mg Carvedilol 25 mg PO BID 05/17/18 09/24/18 09/22/18 History 25 mg Cholecalciferol (Vitamin D3) 1,000 unit PO QDAY 05/17/18 09/24/18 09/21/18 History [Vitamin D3] 1000 units Gabapentin 300 mg PO BID 05/17/18 09/24/18 08/21/18 History 300 mg Insulin NPH Hum/Reg Insulin Hm 31 unit SQ QPM 05/17/18 09/24/18 09/21/18 History [Relion Novolin 70-30 Vial] 15 units Insulin NPH Hum/Reg Insulin Hm 35 unit SQ QAM 05/17/18 09/24/18 09/21/18 History [Relion Novolin 70-30 Vial] 35 units Famotidine [Pepcid] 10 mg PO BID #30 tablet 06/03/18 09/24/18 Unknown Rx ED Physical Exam - General Limitations: No Limitations General appearance: alert, in no apparent distress - Head Head exam: Present: atraumatic, normocephalic - Eye Eye exam: Present: normal appearance - ENT ENT exam: Present: mucous membranes moist - Neck Neck exam: Present: normal inspection - Respiratory Respiratory exam: Present: normal lung sounds bilaterally. Absent: respiratory distress - Cardiovascular Cardiovascular Exam: Present: regular rate, normal rhythm. Absent: systolic murmur, diastolic murmur, rubs, gallop - GI/Abdominal GI/Abdominal exam: Present: soft, normal bowel sounds - Rectal Rectal exam: Present: deferred - Extremities Exam Extremities exam: Present: normal inspection - Back Exam Back exam: Present: normal inspection - Neurological Exam Neurological exam: Present: alert, oriented X3 - Psychiatric Psychiatric exam: Present: normal affect, normal mood - Skin Skin exam: Present: warm, dry, intact, normal color. Absent: rash ED Course Vital Signs 06/22/19 06/22/19 06/22/19 06:54 06:55 07:00 Temperature 98.6 F Pulse Rate 77 70 67 Respiratory 13 18 20 Rate Blood Pressure 194/89 194/89 O2 Sat by Pulse 94 97 97 Oximetry 06/22/19 06/22/19 06/22/19 07:15 07:31 07:34 Temperature Pulse Rate 68 73 75 Respiratory 16 14 Rate Blood Pressure 194/89 215/96 215/96 O2 Sat by Pulse 98 98 Oximetry 06/22/19 06/22/19 06/22/19 07:45 08:01 08:15 Temperature Pulse Rate 82 83 81 Respiratory 20 12 15 Rate Blood Pressure 169/86 163/81 163/81 O2 Sat by Pulse 99 100 99 Oximetry 06/22/19 06/22/19 06/22/19 08:45 09:00 09:15 Temperature Pulse Rate 73 91 H 92 H Respiratory 26 H 25 H 21 Rate Blood Pressure 187/87 182/106 202/91 O2 Sat by Pulse 100 99 94 Oximetry 06/22/19 06/22/19 06/22/19 09:30 09:45 10:00 Temperature Pulse Rate 91 H 84 76 Respiratory 15 11 L 18 Rate Blood Pressure 193/93 193/93 161/70 O2 Sat by Pulse 96 98 98 Oximetry - Reevaluation(s) Reevaluation #1: Discussed plan of care with patient. I discussed all results with patient. Patient agrees with plan of care and admission. Patient will be admitted to the hospitalist service. 06/22/19 08:37 - Consultations Consultation #1: Hospitalist consult for admission. Hospitalist to admit patient. Bridge orders place. 06/22/19 08:30 KARLENE score - Karlene Score Age > 65: (0) No Aspirin use within the Past 7 Days: (1) Yes 3 or more CAD Risk Factors: (1) Yes 2 or more Angina events in past 24 hrs: (0) No Known CAD with more than 50% Stenosis: (0) No Elevated Cardiac Markers: (0) No ST Deviation Greater than 0.5mm: (0) No KARLENE Score: 2 ED Medical Decision Making - Lab Data Result diagrams: 06/22/19 06:37 06/22/19 07:10 - EKG Data -: EKG Interpreted by Me EKG shows normal: sinus rhythm, axis, intervals, QRS complexes, ST-T waves Rate: normal - EKG Data Interpretation: LVH - Radiology Data Radiology results: report reviewed, image reviewed CHEST 1 VIEW INDICATION / CLINICAL INFORMATION: Chest Pain. COMPARISON: None available. FINDINGS: SUPPORT DEVICES: None. HEART / MEDIASTINUM: No significant abnormality. LUNGS / PLEURA: Mild early interstitial edema. No pleural effusion or pneumothorax. - Medical Decision Making Patient is a 63-year-old male that presents emergency room with complaints of chest pain. Patient also missed his dialysis due to the chest pain. Patient found to have severely elevated blood pressure consistent with hypertensive urgency. Patient given hydralazine and blood pressure improved. Patient admitted to the hospitalist service. Patient's chest x-ray done and shows interstitial edema. Patient's labs essentially unremarkable except for findings consistent with end-stage renal disease. - Differential Diagnosis ACS. Chest pain. Critical Care Time: Yes Critical care time in (mins) excluding proc time.: 35 Critical care attestation.: If time is entered above; I have spent that time in minutes in the direct care of this critically ill patient, excluding procedure time. Critical Care Time: 35 minutes ED Disposition Clinical Impression: Hypertensive emergency, ESRD (end stage renal disease) on dialysis, Missed dialysis Chest pain Qualifiers: Chest pain type: unspecified Qualified Code(s): R07.9 - Chest pain, unspecified Disposition: DC-09 OP ADMIT IP TO THIS HOSP Is pt being admited?: Yes Does the pt Need Aspirin: No Condition: Critical Time of Disposition: 08:33
[2019-06-22 07:27] LABS: Eosinophils # (Auto) 0.2 K/mm3 (0.0-0.4); Eosinophils % (Auto) 4.3 % (0.0-4.3); Hematocrit 34.5 % (35.5-45.6); Hemoglobin 11.1 gm/dl (11.8-15.2); Lymphocytes % (Auto) 23.7 % (13.4-35.0); Mean Corpuscular HGB Conc 32 % (32-34); Mean Corpuscular Volume 81 fl (84-94); Monocytes # (Auto) 0.4 K/mm3 (0.0-0.8); Red Blood Count 4.26 M/mm3 (3.65-5.03); Red Cell Distribution Width 17.1 % (13.2-15.2)
--- NOTE | 2019-06-22 07:30 | XRay Report ---
CHEST 1 VIEW INDICATION / CLINICAL INFORMATION: Chest Pain. COMPARISON: None available. FINDINGS: SUPPORT DEVICES: None. HEART / MEDIASTINUM: No significant abnormality. LUNGS / PLEURA: Mild early interstitial edema. No pleural effusion or pneumothorax. Signer Name: Gama Walker MD Signed: 06/22/2019 7:26 AM Workstation Name: [id number]
[2019-06-22 07:45] LABS: Platelet Count 83 K/mm3 (140-440)
[2019-06-22 07:52] LABS: Albumin 3.7 g/dL (3.9-5); Calcium 9.1 mg/dL (8.4-10.2)
--- NOTE | 2019-06-22 09:59 | History and Physical Report ---
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 He is being admitted to obs because BP is 215/9 6 with chest pains. He is comfortable now. 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, PSH: Left upper extremity thrombosed AV fistula s/p Angioplasty x 2, bilateral cataracts removed SH: +tobacco 1pk/week, denies ETOH/illicit drug use FH: brother with hypertension, he believes DM runs in the family also ROS: Constitutional: denies: fever ENT: denies: throat or neck pain Respiratory: + nnps cough, shortness of breath Cardiovascular: +chest pain Endocrine: denies unexplained weight loss or gain Gastrointestinal: denies: abdominal pain, nausea Genitourinary: denies: dysuria Rectal: denies no incontinence, no bleeding, no itching, no discharge Musculoskeletal: denies swelling, myaglia, muscle weakness Skin: denies: rash Neurological: denies: headache Hematological/Lymphatic: denies: easy bleeding or easy bruising Allergic/Immunologic: no urticaria, no allergic rhinitis, no anaphylaxis Psych: denies sadness or hopelessness, SI/HI Medications and Allergies Allergies Allergy/AdvReac Type Severity Reaction Status Date / Time No Known Allergies Allergy Unverified 05/10/18 17:04 Home Medications Medication Instructions Recorded Confirmed Last Taken Type ALBUTEROL Inhaler (OR & NICU) 2 puff IH QID PRN 05/17/18 09/24/18 09/01/18 History [ProAir HFA Inhaler] 2 puff Amlodipine Besylate [Norvasc] 10 mg PO QDAY 05/17/18 09/24/18 09/22/18 History 10 mg Aspirin [Aspirin BABY CHEW TAB] 81 mg PO QDAY 05/17/18 09/24/18 09/21/18 History 81 mg Carvedilol 25 mg PO BID 05/17/18 09/24/18 09/22/18 History 25 mg Cholecalciferol (Vitamin D3) 1,000 unit PO QDAY 05/17/18 09/24/18 09/21/18 His tory [Vitamin D3] 1000 units Gabapentin 300 mg PO BID 05/17/18 09/24/18 08/21/18 History 300 mg Insulin NPH Hum/Reg Insulin Hm 31 unit SQ QPM 05/17/18 09/24/18 09/21/18 History [Relion Novolin 70-30 Vial] 15 units Insulin NPH Hum/Reg Insulin Hm 35 unit SQ QAM 05/17/18 09/24/18 09/21/18 History [Relion Novolin 70-30 Vial] 35 units Famotidine [Pepcid] 10 mg PO BID #30 tablet 06/03/18 09/24/18 Unknown Rx Exam - Physical Exam Narrative exam: Gen: WDWN, chronically disable appearing, NAD, Awake, Alert, Orientated HEENT: NCAT, EOMI, PERRL, OP Clear Neck: supple, no adenopathy, no thyromegaly, no JVD CVS/Heart: RRR, normal S1S2, pulses present bilaterally Chest/Lungs: diminished bs bilateral bases, Symmetrical chest expansion, good air entry bilaterally GI/Abdomen: soft, NTND, good bowel sounds, no guarding or rebound /Bladder: no suprapubic tenderness, no CVA or paraspinal tenderness Extermity/Skin: no c/c/e, no obvious rash MSK: FROM x 4 Neuro: CN 2-12 grossly intact, no new focal deficits Psych: calm - Constitutional Vitals: Temp Pulse Resp BP Pulse Ox 98.6 F 81 15 163/81 99 06/22/19 06:55 06/22/19 08:15 06/22/19 08:15 06/22/19 08:15 06/22/19 08:15 Results - Labs CBC & Chem 7: 06/22/19 06:37 06/22/19 07:10 Labs: Abnormal lab results 06/22/19 06/22/19 Range/Units 06:37 07:10 WBC 4.2 L (4.5-11.0) K/mm3 Hgb 11.1 L (11.8-15.2) gm/dl Hct 34.5 L (35.5-45.6) % MCV 81 L (84-94) fl MCH 26 L (28-32) pg RDW 17.1 H (13.2-15.2) % Plt Count 83 L (140-440) K/mm3 Baker % (Auto) 9.0 H (0.0-7.3) % Lymph # 1.0 L (1.2-5.4) K/mm3 BUN 39 H (9-20) mg/dL Creatinine 8.1 H (0.8-1.5) mg/dL Glucose 107 H (75-100) mg/dL AST 50 H (5-40) units/L Albumin 3.7 L (3.9-5) g/dL Assessment and Plan Patient is a 63 yo man with a history of ESRD on HD TTS, AVF thrombectomy, CHF, DM type 2 on Insulin, hypertension, OA and tobacco dependency who presents to [facility] ED with severe acute onset of SOB with exertion 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 He is being admitted to obs because BP is 215/96 with chest pains. He is comfortable now. * pCXR mild early interstitial edema, no pleural effusion or pneumothorax Chest pains, stable angina most likely: Consult Cardiology, treat medically Fluid overload with pulmonary edema: need Ultrafiltration, ordered ECHO ESRD: needs HD, consult his Sliver Cutter Dr. Edgar Malignant hypertension: iv hydralazine given, still uncontrolled, will give more anti-hypertensives Tobacco dependency: advise to quit, offerred nicotine patch, he declined DM type 2: ssi, ada diet, and accuchecks Pancytopenia appears chronic since 2018 old records: monitor CBC closely DVT ppx scd, hold a/c due to thrombocytopenia Home reconciliation unable to be completed as the button use to access home medication is causing the entire [employer] to crash (multiple attempts) full code
[2019-06-22] MEDS ORDERED: NORCO 10/325 PO PRN (10:07)
[2019-06-22] MEDS ORDERED: LABETALOL IV PRN (10:07)
[2019-06-22] MEDS ORDERED: APRESOLINE IV PRN (10:07)
[2019-06-22] MEDS ORDERED: TYLENOL PO PRN (10:07)
[2019-06-22] MEDS ORDERED: MORPHINE IV PRN (10:07)
[2019-06-22] MEDS ORDERED: PROTONIX PO ONE (10:33)
--- NOTE | 2019-06-22 11:06 | Event Note ---
Date: 06/22/19 Detailed cardiology consultation dictated. Plan for lexiscan MPI stress test in AM. NPO after MN. Obtain echo. [employer] BPs. Neftali ZACARIAS NP / DR. Nakia PAULINO
[2019-06-22] MEDS ORDERED: NACL 0.9% 100 ML IV PRN (11:30)
[2019-06-22 13:23] LABS: Hepatitis B Surface Antigen Non-Reactive (Negative); Hepatitis C Virus Antibody Reactive (NonReactive)
[2019-06-22] MEDS ORDERED: NACL 0.9 (PRIMING MACHINE ONLY DIALYSIS) MC ONE (15:23)
--- NOTE | 2019-06-22 17:59 | Consultation ---
History of Present Illness - History of Present Illness 63 year old with medical history of HTN, ESRD, DM type II admitted with comp laints of shortness of breath while going to dialysis. He has some associated chest pain. He reports associated orthopnea or PND. He does not have any lower extremity edema. Denies any abdominal pain ,nausea or vomitting. Past History Past Medical History: denies: acute SC, atrial fib Past Surgical History: denies: No surgical history, appendectomy Social history: denies: no significant social history, single Family history: denies: no significant family history, CAD Medications and Allergies Allergies Allergy/AdvReac Type Severity Reaction Status Date / Time No Known Allergies Allergy Unverified 05/10/18 17:04 Home Medications Medication Instructions Recorded Confirmed Last Taken Type ALBUTEROL Inhaler (OR & NICU) 2 puff IH QID PRN 05/17/18 06/22/19 09/01/18 History [ProAir HFA Inhaler] 2 puff Amlodipine Besylate [Norvasc] 10 mg PO QDAY 05/17/18 06/22/19 09/22/18 History 10 mg Aspirin [Aspirin BABY CHEW TAB] 81 mg PO QDAY 05/17/18 06/22/19 09/21/18 History 81 mg Carvedilol 25 mg PO BID 05/17/18 06/22/19 09/22/18 History 25 mg Cholecalciferol (Vitamin D3) 1,000 unit PO QDAY 05/17/18 06/22/19 09/21/18 History [Vitamin D3] 1000 units Gabapentin 300 mg PO BID 05/17/18 06/22/19 08/21/18 History 300 mg Insulin NPH Hum/Reg Insulin Hm 31 unit SQ QPM 05/17/18 06/22/19 09/21/18 History [Relion Novolin 70-30 Vial] 15 units Insulin NPH Hum/Reg Insulin Hm 35 unit SQ QAM 05/17/18 06/22/19 09/21/18 History [Relion Novolin 70-30 Vial] 35 units Famotidine [Pepcid] 10 mg PO BID #30 tablet 06/03/18 06/22/19 Unknown Rx Active Meds: Active Medications Acetaminophen (Tylenol) 650 mg PO Q6H PRN PRN Reason: Non Cardiac Pain or Temp>100.5 Acetaminophen/Hydrocodone Bitart (Kidder 10/325) 1 each PO Q4H PRN PRN Reason: Pain , Severe (7-10) Amlodipine Besylate (Amlodipine) 10 mg PO QDAY [facility] Aspirin (Baby Aspirin) 81 mg PO QDAY [facility] Carvedilol (Coreg) 25 mg PO BID [facility] Heparin Sodium (Porcine) (Heparin) 5,000 unit SUB-Q Q12HR [facility] Hydralazine HCl (Apresoline) 10 mg IV Q4HR PRN PRN Reason: Blood Pressure Sodium Chloride (Nacl 0.9%) 100 mls @ 999 mls/hr IV BARTOLO PRN PRN Reason: Hypotension Morphine Sulfate (Morphine) 2 mg IV Q4H PRN PRN Reason: Pain , Severe (7-10) Ondansetron HCl (Zofran) 4 mg IV Q4H PRN PRN Reason: Nausea And Vomiting Pantoprazole Sodium (Protonix) 20 mg PO QDAY [facility] Review of Systems Constitutional: no weight loss, no weight gain Cardiovascular: no chest pain, no orthopnea Respiratory: no cough, no cough with sputum Rectal: no pain, no incontinence Integumentary: no deferred Neurological: no head injury, no transient paralysis Psychiatric: no anxiety, no memory loss Endocrine: no cold intolerance, no heat intolerance Hematologic/Lymphatic: no easy bruising, no easy bleeding Allergic/Immunologic: no urticaria, no allergic rhinitis Exam - Vital Signs Vital signs: Vital Signs Pulse Resp Pulse Ox 77 13 94 06/22/19 06:54 06/22/19 06:54 06/22/19 06:54 - General Appearance General appearance: well-developed, well-nourished EENT: ATNC, PERRL Neck: Present: neck supple Respiratory: Clear to Ascultation Heart: regular, S1S2 Gastrointestinal: Present: normal, normoactive bowel sounds Integumentary: no rash, warm and dry Neurologic: alert and oriented x3, CN 3-12 intact Musculoskeletal: Present: deferred Psychiatric: mood/affect appropriate Results - Lab Results 06/22/19 06:37 06/22/19 07:10 Most recent lab results Calcium 9.1 mg/dL (8.4-10.2) 06/22/19 07:10 - Image Kidney/bladder ultrasound: other (i reviewed CXR which showed bilateral patchy opacities with pulmonary edema. ) Assessment and Plan - Patient Problems (1) ESRD (end stage renal disease) on dialysis Current Visit: Yes Status: Acute Plan to address problem: ESRD on hemodialysis continue HD TTS UF: 3L as tolerated. (2) Diabetes Current Visit: No Status: Acute Plan to address problem: DM type II : continue medications. (3) Chest pain Current Visit: Yes Status: Acute Qualifiers: Chest pain type: unspecified Qualified Code(s): R07.9 - Chest pain, unspecified Plan to address problem: chest pain - Trend EKG - normal troponin on arrival , trend troponin. (4) HTN (hypertension) Current Visit: Yes Status: Acute Qualifiers: Hypertension type: essential hypertension Qualified Code(s): I10 - Essential (primary) hypertension Plan to address problem: HTN: controlled continue current medications.
[2019-06-22] MEDS: COREG PO SCH (21:20)
--- NOTE | 2019-06-22 21:37 | Consultation ---
REFERRING PHYSICIAN: ER physician. REASON FOR CONSULTATION: Advice and opinion regarding chest pain. HISTORY OF PRESENT ILLNESS: The patient is a 63-year-old -[place] gentleman with history of end-stage renal disease, questionable congestive heart failure, type 2 diabetes, hypertension, osteoarthritis, tobacco abuse, who presents to the Emergency Room with acute shortness of breath. 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 Describes the chest pain as sharp. He is seen in the Emergency Room. He states he has no further chest pain, chronic shortness of breath. No lightheadedness or dizziness. He has been tolerating dialysis. No fevers, chills, nausea or vomiting. No leg swelling, headache, blurred vision, skin rash, abdominal pain. PAST MEDICAL HISTORY: As aforementioned. PAST SURGICAL HISTORY: Reviewed. SOCIAL HISTORY: Continues to smoke. No alcohol or drugs. Discussed smoking cessation with him for greater than 5 minutes. FAMILY HISTORY: Brother with hypertension, multiple family members with diabetes. REVIEW OF SYSTEMS: As per HPI. ALLERGIES: No known drug, food or environmental allergies. MEDICATIONS: Inpatient and outpatient medications reviewed. PHYSICAL EXAMINATION: VITAL SIGNS: Blood pressure is 150/70, he is afebrile. Tele reveals sinus rhythm in the 90s. O2 sats 98% on room air. GENERAL: This is a middle-aged -[place] male, in no apparent distress, oriented x 3. HEENT: Sclerae are anicteric. NECK: Supple. No mass or JVD. CHEST: Clear to auscultation bilaterally. Good air movement. CARDIOVASCULAR: Regular rhythm, S1, S2. ABDOMEN: Soft, nontender, nondistended. Normoactive bowel sounds in all 4 quadrants. No mass or bruits. EXTREMITIES: No cyanosis, clubbing or edema. Good peripheral pulses. SKIN: Intact. No rashes. LABORATORY DATA: ECG reveals normal sinus rhythm, left ventricular hypertrophy. Labs reviewed. Hemoglobin is 11.1, hematocrit 34.5, platelets 83. Creatinine is 8.1. Troponin has not been drawn. Platelets in 05/2018 were 110. ASSESSMENT AND PLAN: In summary, the patient is a 63-year-old -[place] gentleman: 1. Chest pain with typical and atypical features. Troponin is pending. EKG is unremarkable. He is chest pain free at this time. 2. End-stage renal disease with fluid overload. Dr. Edgar has been consulted. 3. Malignant hypertension. 4. Tobacco use. 5. Type 2 diabetes. 6. Mild pancytopenia including thrombocytopenia. At this point, I will check an echocardiogram, nuclear stress test in a.m. Continue baby aspirin. Primary and secondary prevention measures discussed. Smoking cessation discussed. Thank you for this consultation. I would be happy following with you. JOB# [id number] SBM/NTS
[2019-06-23] MEDS ORDERED: LEXISCAN IV ONE (06:46)
[2019-06-23 06:47] LABS: Hematocrit 34.5 % (35.5-45.6); Hemoglobin 10.9 gm/dl (11.8-15.2); Mean Corpuscular HGB Conc 32 % (32-34); Mean Corpuscular Volume 80 fl (84-94); Red Blood Count 4.32 M/mm3 (3.65-5.03); Red Cell Distribution Width 17.1 % (13.2-15.2)
[2019-06-23 07:08] LABS: Calcium 8.9 mg/dL (8.4-10.2); Chol/HDL Ratio 2.56 %
[2019-06-23 07:19] LABS: Platelet Count 85 K/mm3 (140-440)
[2019-06-23] MEDS ORDERED: PROTONIX PO SCH (10:00)
[2019-06-23] MEDS: BABY ASPIRIN PO SCH (10:31)
[2019-06-23] MEDS: COREG PO SCH ×2 (10:32→21:06)
--- NOTE | 2019-06-23 14:34 | Progress Note ---
Assessment and Plan Currently stable cardiac status. Chest pain resolved. S/p lexiscan MPI stress test today which was negative. Echo reviewed - EF 60-65%, mod mitral leaflet calcification, echogenic structure on MV leaflet prob calcification, mild MR, mild TR. Pt noted to have low grade fever overnight. Although there is low suspicion for vegetation, will obtain blood cultures and continue to monitor. Consider CELESTE if clinically indicated. D/w Dr. Dc. The patient has been seen in conjunction with Dr. Nakia Lovett who agree with the assessment and plan of care. - Patient Problems (1) Chest pain Current Visit: Yes Status: Resolved Qualifiers: Chest pain type: unspecified Qualified Code(s): R07.9 - Chest pain, unspecified (2) ESRD (end stage renal disease) on dialysis Current Visit: Yes Status: Chronic (3) Malignant hypertension Current Visit: Yes Status: Chronic (4) Pancytopenia Current Visit: Yes Status: Acute (5) Diabetes Current Visit: Yes Status: Chronic (6) Tobacco use Current Visit: Yes Status: Chronic Subjective Date of service: 06/23/19 Principal diagnosis: cp Interval history: pt for stress test, no current complaints.in SR. Objective Last Vital Signs Temp 99.7 F H 06/23/19 03:06 Pulse 80 06/23/19 12:00 Resp 20 06/23/19 12:00 BP 130/64 06/23/19 10:32 Pulse Ox 100 06/23/19 12:00 - Physical Examination General: No Apparent Distress HEENT: Positive: PERRL, Normocephaly, Mucus Membranes Moist Neck: Positive: neck supple Cardiac: Positive: Reg Rate and Rhythm, S1/S2 Lungs: Positive: Decreased Breath Sounds Neuro: Positive: Grossly Intact Abdomen: Negative: Tender Skin: Negative: Rash Musculoskeletal: No Pain Extremities: Absent: edema - Labs and Meds Lipids 06/23/19 Range/Units Unknown Triglycerides 85 (2-149) mg/dL Cholesterol 113 (50-199) mg/dL HDL Cholesterol 44 (40-59) mg/dL Cholesterol/HDL Ratio 2.56 % CBC 06/23/19 Range/Units 06:00 WBC 4.8 (4.5-11.0) K/mm3 RBC 4.32 (3.65-5.03) M/mm3 Hgb 10.9 L (11.8-15.2) gm/dl Hct 34.5 L (35.5-45.6) % Plt Count 85 L (140-440) K/mm3 Comprehensive Metabolic Panel 06/23/19 Range/Units Unknown Sodium 137 (137-145) mmol/L Potassium 4.3 (3.6-5.0) mmol/L Chloride 100.1 (98-107) mmol/L Carbon Dioxide 25 (22-30) mmol/L BUN 27 H (9-20) mg/dL Creatinine 6.7 H (0.8-1.5) mg/dL Glucose 110 H (75-100) mg/dL Calcium 8.9 (8.4-10.2) mg/dL - Imaging and Cardiology EKG: report reviewed, image reviewed - Telemetry EKG Rhythm: Sinus Rhythm
--- NOTE | 2019-06-23 16:11 | Treadmill Report ---
NUCLEAR STRESS TEST REFERRING PHYSICIAN: Hospitalist service. PROTOCOL: The patient was brought to the stress lab in postoperative state, given 10 mCi of technetium 99m at rest. The patient underwent rest imaging. The patient underwent Lexiscan stress test. At peak stress, the patient was given 26 mCi of technetium 99m. Shortly thereafter, the patient underwent stress imaging. Raw imaging reveals mild GI artifact, no significant motion artifact. SPECT imaging examined carefully in horizontal long axis, vertical long axis, and short axis views. There is normal mitral uptake of radioisotope in all reported segments. No evidence of a significant fixed or reversible perfusion defects suggestive of prior infarction or ischemia. Gated wall motion reveals normal systolic thickening, calculated ejection fraction of 55%. No TID. CONCLUSIONS: 1. Normal myocardial perfusion scan without evidence of active ischemia or prior infarction. 2. Normal left ventricular systolic performance without evidence of transient ischemic dilatation or stress-induced segmental wall motion abnormalities. JOB# [id number] RK/NINO
--- NOTE | 2019-06-23 16:48 | Progress Note ---
Assessment and Plan # ESRD (end stage renal disease) on dialysis - continue HD TTS - UF: 3L as tolerated. # Chest pain: improved - Trend EKG - normal troponin on arrival , trend troponin. # HTN (hypertension) - continue current medications with good control # Anemia of Chronic Disease: hemoglobin at goal Subjective Date of service: 06/23/19 Principal diagnosis: cp Interval history: no acute events noted. tolerating HD well. Only complains of heartburn and is upset that he is not getting Tums. Objective - Exam Narrative Exam: General appearance: well-developed, well-nourished EENT: ATNC, PERRL Neck: Present: neck supple Respiratory: Clear to Auscultation Heart: regular, S1S2 Gastrointestinal: Present: normal, normoactive bowel sounds Integumentary: no rash, warm and dry Neurologic: alert and oriented x3, CN 3-12 intact Musculoskeletal: no joint swelling Psychiatric: mood/affect appropriate - Vital Signs Vital signs: Vital Signs - 12hr 06/23/19 06/23/19 06/23/19 08:06 08:08 08:34 Pulse Rate Respiratory Rate Respiratory Rate [Bilateral Ear] Blood Pressure 170/81 163/87 107/53 O2 Sat by Pulse Oximetry 06/23/19 06/23/19 06/23/19 08:35 08:36 08:38 Pulse Rate Respiratory Rate Respiratory Rate [Bilateral Ear] Blood Pressure 117/57 115/57 127/62 O2 Sat by Pulse Oximetry 06/23/19 06/23/19 10:32 12:00 Pulse Rate 80 80 Respiratory 18 Rate Respiratory 20 Rate [Bilateral Ear] Blood Pressure 130/64 O2 Sat by Pulse 100 Oximetry - Lab 06/23/19 06:00 06/23/19 Unknown Most recent lab results Calcium 8.9 mg/dL (8.4-10.2) 06/23/19 Unknown Medications & Allergies - Medications Allergies/Adverse Reactions: Allergies No Known Allergies Allergy (Unverified 05/10/18 17:04) Home Medications: Home Medications Medication Instructions Recorded Confirmed Last Taken Type ALBUTEROL Inhaler (OR & NICU) 2 puff IH QID PRN 05/17/18 06/22/19 09/01/18 History [ProAir HFA Inhaler] 2 puff Amlodipine Besylate [Norvasc] 10 mg PO QDAY 0906/22/19 09/22/18 History 10 mg Aspirin [Aspirin BABY CHEW TAB] 81 mg PO QDAY 05/17/18 06/22/19 09/21/18 History 81 mg Carvedilol 25 mg PO BID 05/17/18 06/22/19 09/22/18 History 25 mg Cholecalciferol (Vitamin D3) 1,000 unit PO QDAY 05/17/18 06/22/19 09/21/18 History [Vitamin D3] 1000 units Gabapentin 300 mg PO BID 05/17/18 06/22/19 08/21/18 History 300 mg Insulin NPH Hum/Reg Insulin Hm 31 unit SQ QPM 05/17/18 06/22/19 09/21/18 History [Relion Novolin 70-30 Vial] 15 units Insulin NPH Hum/Reg Insulin Hm 35 unit SQ QAM 05/17/18 06/22/19 09/21/18 History [Relion Novolin 70-30 Vial] 35 units Famotidine [Pepcid] 10 mg PO BID #30 tablet 06/03/18 06/22/19 Unknown Rx Active Medications: Generic Name Dose Route Start Last Admin Trade Name Freq PRN Reason Stop Dose Admin Acetaminophen 650 mg 06/22/19 10:07 Tylenol PO Q6H PRN Non Cardiac Pain or Temp>100.5 Acetaminophen/Hydrocodone Bitart 1 each 06/22/19 10:07 [place] 10/325 PO Q4H PRN Pain , Severe (7-10) Amlodipine Besylate 10 mg 06/22/19 13:00 06/23/19 10:32 Amlodipine PO 10 mg QDAY KERRIE Administration Aspirin 81 mg 06/23/19 10:00 06/23/19 10:31 Baby Aspirin PO 81 mg QDAY KERRIE Administration Carvedilol 25 mg 06/22/19 22:00 06/23/19 10:32 Coreg PO 25 mg BID KERRIE Administration Famotidine 20 mg 06/23/19 22:00 Pepcid PO BID KERRIE Heparin Sodium (Porcine) 5,000 unit 06/23/19 22:00 Heparin SUB-Q Q12HR KERRIE Hydralazine HCl 10 mg 06/22/19 10:07 Apresoline IV Q4HR PRN Blood Pressure Sodium Chloride 100 mls @ 999 mls/hr 06/22/19 11:30 Nacl 0.9% IV BARTOLO PRN Hypotension Morphine Sulfate 2 mg 06/22/19 10:07 Morphine IV Q4H PRN Pain , Severe (7-10) Ondansetron HCl 4 mg 06/22/19 10:07 Zofran IV Q4H PRN Nausea And Vomiting Pantoprazole Sodium 20 mg 06/23/19 10:00 06/23/19 10:32 Protonix PO 20 mg QDAY KERRIE Administration
--- NOTE | 2019-06-23 17:20 | Progress Note ---
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 He is being admitted to obs because BP is 215/96 with chest pains. He is comfortable now. * pCXR mild early interstitial edema, no pleural effusion or pneumothorax Chest pains, most likely GERD related, he takes TUMS frequently at home, negative stress test: Consult Cardiology, treat medically, treat with PPI Fluid overload with pulmonary edema: need Ultrafiltration, ordered ECHO ESRD: needs HD, consult his [facility] Dr. Edgar Malignant hypertension: iv hydralazine given, still uncontrolled, will give more anti-hypertensives Tobacco dependency: advise to quit, offerred nicotine patch, he declined DM type 2: ssi, ada diet, and accuchecks Pancytopenia appears chronic since 2018 old records: monitor CBC closely DVT ppx scd, hold a/c due to thrombocytopenia Home reconciliation unable to be completed as the button use to access home medication is causing the entire [employer] EMR to crash (multiple attempts) full code ECHO should unspecified density on Mitral valve, ?calcification, hold discharge and work up for Infectious Endocarditis. History Interval history: Patient seen and examined, no new issues, chest pain free. No sob. Has acid reflux Hospitalist Physical - Physical exam Narrative exam: Gen: WDWN, chronically disable appearing, NAD, Awake, Alert, Orientated HEENT: NCAT, EOMI, PERRL, OP Clear Neck: supple, no adenopathy, no thyromegaly, no JVD CVS/Heart: RRR, normal S1S2, pulses present bilaterally Chest/Lungs: diminished bs bilateral bases, Symmetrical chest expansion, good air entry bilaterally GI/Abdomen: soft, NTND, good bowel sounds, no guarding or rebound /Bladder: no suprapubic tenderness, no CVA or paraspinal tenderness Extermity/Skin: no c/c/e, no obvious rash MSK: FROM x 4 Neuro: CN 2-12 grossly intact, no new focal deficits Psych: calm - Constitutional Vitals: Temp Pulse Resp BP Pulse Ox 99.7 F H 80 20 130/64 100 06/23/19 03:06 06/23/19 12:00 06/23/19 12:00 06/23/19 10:32 06/23/19 12:00 Results - Labs CBC & Chem 7: 06/23/19 06:00 06/23/19 Unknown Labs: Laboratory Last Values WBC 4.8 K/mm3 (4.5-11.0) 06/23/19 06:00 RBC 4.32 M/mm3 (3.65-5.03) 06/23/19 06:00 Hgb 10.9 gm/dl (11.8-15.2) L 06/23/19 06:00 Hct 34.5 % (35.5-45.6) L 06/23/19 06:00 MCV 80 fl (84-94) L 06/23/19 06:00 MCH 25 pg (28-32) L 06/23/19 06:00 MCHC 32 % (32-34) 06/23/19 06:00 RDW 17.1 % (13.2-15.2) H 06/23/19 06:00 Plt Count 85 K/mm3 (140-440) L 06/23/19 06:00 Lymph % (Auto) 23.7 % (13.4-35.0) 06/22/19 06:37 [place] % (Auto) 9.0 % (0.0-7.3) H 06/22/19 06:37 Eos % (Auto) 4.3 % (0.0-4.3) 06/22/19 06:37 Baso % (Auto) 1.0 % (0.0-1.8) 06/22/19 06:37 Lymph # 1.0 K/mm3 (1.2-5.4) L 06/22/19 06:37 [place] # 0.4 K/mm3 (0.0-0.8) 06/22/19 06:37 Eos # 0.2 K/mm3 (0.0-0.4) 06/22/19 06:37 Baso # 0.0 K/mm3 (0.0-0.1) 06/22/19 06:37 Seg Neutrophils % 62.0 % (40.0-70.0) 06/22/19 06:37 Seg Neutrophils # 2.6 K/mm3 (1.8-7.7) 06/22/19 06:37 Sodium 137 mmol/L (137-145) 06/23/19 Unknown Potassium 4.3 mmol/L (3.6-5.0) 06/23/19 Unknown Chloride 100.1 mmol/L (98-107) 06/23/19 Unknown Carbon Dioxide 25 mmol/L (22-30) 06/23/19 Unknown Anion Gap 16 mmol/L 06/23/19 Unknown BUN 27 mg/dL (9-20) H 06/23/19 Unknown Creatinine 6.7 mg/dL (0.8-1.5) H 06/23/19 Unknown Estimated GFR 10 ml/min 06/23/19 Unknown BUN/Creatinine Ratio 4 % 06/23/19 Unknown Glucose 110 mg/dL (75-100) H 06/23/19 Unknown POC Glucose 179 (70-105) H 06/23/19 11:44 Calcium 8.9 mg/dL (8.4-10.2) 06/23/19 Unknown Total Bilirubin 0.30 mg/dL (0.1-1.2) 06/22/19 07:10 AST 50 units/L (5-40) H 06/22/19 07:10 ALT 38 units/L (7-56) 06/22/19 07:10 Alkaline Phosphatase 85 units/L (35-129) 06/22/19 07:10 Troponin T 0.022 ng/mL (0.00-0.029) 06/22/19 12:20 Total Protein 7.2 g/dL (6.3-8.2) 06/22/19 07:10 Albumin 3.7 g/dL (3.9-5) L 06/22/19 07:10 Albumin/Globulin Ratio 1.1 % 06/22/19 07:10 Triglycerides 85 mg/dL (2-149) 06/23/19 Unknown Cholesterol 113 mg/dL (50-199) 06/23/19 Unknown LDL Cholesterol Direct 62 mg/dL (50-130) 06/23/19 Unknown HDL Cholesterol 44 mg/dL (40-59) 06/23/19 Unknown Cholesterol/HDL Ratio 2.56 % 06/23/19 Unknown TSH 1.730 mlU/mL (0.270-4.200) 06/23/19 06:00 Hepatitis A IgM Ab Non-reactive (NonReactive) 06/22/19 11:49 Hep Bs Antigen Non-reactive (Negative) 06/22/19 11:49 Hep B Core IgM Ab Non-reactive (NonReactive) 06/22/19 11:49 Hepatitis C Antibody Reactive (NonReactive) A 06/22/19 11:49 Active Medications - Current Medications Current Medications: Generic Name Dose Route Start Last Admin Trade Name Freq PRN Reason Stop Dose Admin Acetaminophen 650 mg 06/22/19 10:07 Tylenol PO Q6H PRN Non Cardiac Pain or Temp>100.5 Acetaminophen/Hydrocodone Bitart 1 each 06/22/19 10:07 [place] 10/325 PO Q4H PRN Pain , Severe (7-10) Amlodipine Besylate 10 mg 06/22/19 13:00 06/23/19 10:32 Amlodipine PO 10 mg QDAY KERRIE Administration Aspirin 81 mg 06/23/19 10:00 06/23/19 10:31 Baby Aspirin PO 81 mg QDAY KERRIE Administration Carvedilol 25 mg 06/22/19 22:00 06/23/19 10:32 Coreg PO 25 mg BID KERRIE Administration Famotidine 20 mg 06/23/19 22:00 Pepcid PO BID KERRIE Heparin Sodium (Porcine) 5,000 unit 06/23/19 22:00 Heparin SUB-Q Q12HR KERRIE Hydralazine HCl 10 mg 06/22/19 10:07 Apresoline IV Q4HR PRN Blood Pressure Sodium Chloride 100 mls @ 999 mls/hr 06/22/19 11:30 Nacl 0.9% IV BARTOLO PRN Hypotension Morphine Sulfate 2 mg 06/22/19 10:07 Morphine IV Q4H PRN Pain , Severe (7-10) Ondansetron HCl 4 mg 06/22/19 10:07 Zofran IV Q4H PRN Nausea And Vomiting Pantoprazole Sodium 20 mg 06/23/19 10:00 06/23/19 10:32 Protonix PO 20 mg QDAY KERRIE Administration Pantoprazole Sodium 40 mg 06/23/19 18:00 Protonix PO QDAY KERRIE
[2019-06-23] MEDS: ZOFRAN IV PRN ×2 (17:30→21:10)
[2019-06-23] MEDS: PROTONIX PO SCH (17:32)
[2019-06-23] MEDS: PEPCID PO SCH (21:06)
[2019-06-23] MEDS: HEPARIN SUB-Q SCH (21:08)
[2019-06-24] MEDS: PEPCID PO SCH (09:11)
[2019-06-24] MEDS: BABY ASPIRIN PO SCH (09:11)
[2019-06-24] MEDS: PROTONIX PO SCH (09:11)
[2019-06-24] MEDS: HEPARIN SUB-Q SCH (09:12)
[2019-06-24 09:38] LABS: Hematocrit 35.1 % (35.5-45.6); Hemoglobin 11.1 gm/dl (11.8-15.2); Mean Corpuscular HGB Conc 32 % (32-34); Mean Corpuscular Volume 81 fl (84-94); Red Blood Count 4.36 M/mm3 (3.65-5.03); Red Cell Distribution Width 17.2 % (13.2-15.2)
[2019-06-24 09:41] LABS: Platelet Count 87 K/mm3 (140-440)
--- NOTE | 2019-06-24 10:25 | Progress Note ---
Assessment and Plan Echogenic mitral leaflet structure Likely calcification Afebrile overnight No leukocytosis Blood cultures pending Atypical Chest pain Resolved S/p negative lexiscan MPI Echo EF 60-65% Malignant hypertension ESRD on hemodialysis Thrombocytopenia Diabetes Tobacco use Subjective Date of service: 06/24/19 Principal diagnosis: cp Interval history: Patient line in bed. Patient denies any complaints of chest pain, fevers, chills, night sweats Objective Vital Signs Temp Pulse Resp Resp BP Pulse Ox 06/24/19 09:08 98.4 F 62 18 146/77 100 06/24/19 07:59 70 06/24/19 04:49 97.6 F 70 18 140/57 97 06/24/19 04:00 71 06/24/19 00:00 20 06/23/19 23:09 98.2 F 71 18 152/68 90 06/23/19 21:06 22 06/23/19 20:19 98.1 F 71 18 151/58 96 06/23/19 20:00 76 06/23/19 12:00 80 18 20 100 06/23/19 10:32 80 130/64 - Physical Examination General: No Apparent Distress HEENT: Positive: PERRL, Normocephaly, Mucus Membranes Moist Neck: Positive: neck supple Cardiac: Positive: Reg Rate and Rhythm Lungs: Positive: clear to auscultation Neuro: Positive: Grossly Intact Abdomen: Positive: Active Bowel Sounds. Negative: Tender Skin: Negative: Rash Musculoskeletal: No Pain Extremities: Absent: edema - Labs and Meds CBC 06/24/19 Range/Units 08:39 WBC 3.4 L (4.5-11.0) K/mm3 RBC 4.36 (3.65-5.03) M/mm3 Hgb 11.1 L (11.8-15.2) gm/dl Hct 35.1 L (35.5-45.6) % Plt Count 87 L (140-440) K/mm3 Comprehensive Metabolic Panel 06/24/19 Range/Units 08:39 Sodium 138 (137-145) mmol/L Potassium 4.4 (3.6-5.0) mmol/L Chloride 99.7 (98-107) mmol/L Carbon Dioxide 24 (22-30) mmol/L BUN 44 H (9-20) mg/dL Creatinine 8.3 H (0.8-1.5) mg/dL Glucose 150 H (75-100) mg/dL Calcium 9.0 (8.4-10.2) mg/dL - Imaging and Cardiology EKG: report reviewed, image reviewed
[2019-06-24] MEDS: COREG PO SCH (13:11)
--- NOTE | 2019-06-24 13:50 | Discharge Summary ---
Providers - Providers Date of Admission: 06/22/19 08:34 Date of discharge: 06/24/19 Attending physician: LINDA BURDEN 06/22/19 10:00 Consult to Physician [CONS] Routine Comment: Consulting Provider: OBDULIO EDGAR Physician Instructions: Reason For Exam: ESRD needing HD, your patient 06/22/19 10:03 Consult to Physician [CONS] Routine Comment: Consulting Provider: DANDY WARNER Physician Instructions: Reason For Exam: Chest pains [facility] Hospital[facility] Condition: Stable Hospital course: Patient is a 63 yo man with a history of ESRD on HD TTS, AVF thrombectomy, CHF, DM type 2 on Insulin, hypertension, OA and tobacco dependency who presents to [facility] ED with severe acute onset of 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 He is being admitted to obs because BP is 215/96 with chest pains. He is comfortable now. ECHO should unspecified density on Mitral valve most likley calcification and ok to discharge per Cardiology. * pCXR mild early interstitial edema, no pleural effusion or pneumothorax Chest pains, most likely GERD related, he takes TUMS frequently at home, negative stress test: Consult Cardiology, treat medically, treat with PPI Fluid overload with pulmonary edema: need Ultrafiltration, ECHO reviewed ESRD: needs HD, consult his [employer] Dr. Edgar Malignant hypertension: iv hydralazine given, still uncontrolled, will give more anti-hypertensives Tobacco dependency: advise to quit, offerred nicotine patch, he declined DM type 2: ssi, ada diet, and accuchecks Pancytopenia appears chronic since 2018 old records: monitor CBC closely DVT ppx scd, hold a/c due to thrombocytopenia full code Disposition: TO HOME OR SELFCARE Time spent for discharge: 35 minutes Core Measure Documentation - Palliative Care Palliative Care/ Comfort Measures: Not Applicable - Core Measures Any of the following diagnoses?: none - VTE Discharge Requirements Deep Vein Thrombosis/Pulmonary Embolism Present on Admission: No Has pt received <5 days of overlap therapy or INR<2.0: No Anticoagulant overlap therapy prescribed at discharge: No Contraindication No Overlap Therapy order at DC: Not Indicated Exam - Physical Exam Narrative exam: Gen: WDWN, chronically disable appearing, NAD, Awake, Alert, Orientated HEENT: NCAT, EOMI, PERRL, OP Clear Neck: supple, no adenopathy, no thyromegaly, no JVD CVS/Heart: RRR, normal S1S2, pulses present bilaterally Chest/Lungs: diminished bs bilateral bases, Symmetrical chest expansion, good air entry bilaterally GI/Abdomen: soft, NTND, good bowel sounds, no guarding or rebound /Bladder: no suprapubic tenderness, no CVA or paraspinal tenderness Extermity/Skin: no c/c/e, no obvious rash MSK: FROM x 4 Neuro: CN 2-12 grossly intact, no new focal deficits Psych: calm - Constitutional Vitals: Temp Pulse Resp BP Pulse Ox 98.4 F 64 18 163/78 98 06/24/19 09:08 06/24/19 12:45 06/24/19 09:08 06/24/19 12:45 06/24/19 12:45 Plan Activity: other (no strenous activity unless clearec by PCP) Diet: low salt, renal [facility] [Primary Care Provider] - 7 Days DANDY WARNER MD [Staff Physician] - 7 Days OBDULIO EDGAR MD [Staff Physician] - 7 Days
--- NOTE | 2019-06-24 18:44 | Progress Note ---
Assessment and Plan # ESRD (end stage renal disease) on dialysis - continue HD TTS, due today - UF: 3L as tolerated. # Chest pain: improved - Trend EKG - normal troponin on arrival , trend troponin. # HTN (hypertension) - continue current medications with good control # Anemia of Chronic Disease: hemoglobin at goal for CKD Subjective Date of service: 06/24/19 Principal diagnosis: cp Interval history: no acute events noted. tolerating HD well. ready to leave hospital, just waiting for dialysis to be done Objective - Exam Narrative Exam: General appearance: well-developed, well-nourished EENT: ATNC, PERRL Neck: Present: neck supple Respiratory: Clear to Auscultation Heart: regular, S1S2 Gastrointestinal: Present: normal, normoactive bowel sounds Integumentary: no rash, warm and dry Neurologic: alert and oriented x3, CN 3-12 intact Musculoskeletal: no joint swelling Psychiatric: mood/affect appropriate - Vital Signs Vital signs: Vital Signs - 12hr 06/24/19 06/24/19 06/24/19 07:59 09:08 12:45 Temperature 98.4 F Pulse Rate 70 62 64 Respiratory 18 Rate Blood Pressure 146/77 163/78 O2 Sat by Pulse 100 98 Oximetry 06/24/19 06/24/19 15:00 17:46 Temperature Pulse Rate 64 65 Respiratory Rate Blood Pressure 139/61 O2 Sat by Pulse 95 Oximetry - Lab 06/24/19 08:39 06/24/19 08:39 Most recent lab results Calcium 9.0 mg/dL (8.4-10.2) 06/24/19 08:39 Medications & Allergies - Medications Allergies/Adverse Reactions: Allergies No Known Allergies Allergy (Unverified 05/10/18 17:04) Home Medications: Home Medications Medication Instructions Recorded Confirmed Last Taken Type ALBUTEROL Inhaler (OR & NICU) 2 puff IH QID PRN 05/17/18 06/22/19 09/01/18 History [ProAir HFA Inhaler] 2 puff Amlodipine Besylate [Norvasc] 10 mg PO QDAY 05/17/18 06/22/19 09/22/18 History 10 mg Aspirin [Aspirin BABY CHEW TAB] 81 mg PO QDAY 05/17/18 06/22/19 09/21/18 History 81 mg Carvedilol 25 mg PO BID 05/17/18 06/22/19 09/22/18 History 25 mg Cholecalciferol (Vitamin D3) 1,000 unit PO QDAY 05/17/18 06/22/19 09/21/18 History [Vitamin D3] 1000 units Gabapentin 300 mg PO BID 05/17/18 06/22/19 08/21/18 History 300 mg Insulin NPH Hum/Reg Insulin Hm 31 unit SQ QPM 05/17/18 06/22/19 09/21/18 History [Relion Novolin 70-30 Vial] 15 units Insulin NPH Hum/Reg Insulin Hm 35 unit SQ QAM 05/17/18 06/22/19 09/21/18 History [Relion Novolin 70-30 Vial] 35 units Famotidine [Pepcid] 10 mg PO BID #30 tablet 06/03/18 06/22/19 Unknown Rx Active Medications: Generic Name Dose Route Start Last Admin Trade Name Freq PRN Reason Stop Dose Admin Acetaminophen 650 mg 06/22/19 10:07 Tylenol PO Q6H PRN Non Cardiac Pain or Temp>100.5 Acetaminophen/Hydrocodone Bitart 1 each 06/22/19 10:07 06/23/19 21:06 [place] 10/325 PO 1 each Q4H PRN Administration Pain , Severe (7-10) Amlodipine Besylate 10 mg 06/22/19 13:00 06/24/19 13:11 Amlodipine PO 10 mg QDAY KERRIE Administration Aspirin 81 mg 06/23/19 10:00 06/24/19 09:11 Baby Aspirin PO 81 mg QDAY KERRIE Administration Carvedilol 25 mg 06/22/19 22:00 06/24/19 13:11 Coreg PO 25 mg BID KERRIE Administration Famotidine 20 mg 06/23/19 22:00 06/24/19 09:11 Pepcid PO 20 mg BID KERRIE Administration Heparin Sodium (Porcine) 5,000 unit 06/23/19 22:00 06/24/19 09:12 Heparin SUB-Q Not Given Q12HR KERRIE Hydralazine HCl 10 mg 06/22/19 10:07 Apresoline IV Q4HR PRN Blood Pressure Sodium Chloride 100 mls @ 999 mls/hr 06/22/19 11:30 Nacl 0.9% IV BARTOLO PRN Hypotension Morphine Sulfate 2 mg 06/22/19 10:07 Morphine IV Q4H PRN Pain , Severe (7-10) Ondansetron HCl 4 mg 06/22/19 10:07 06/23/19 21:10 Zofran IV 4 mg Q4H PRN Administration Nausea And Vomiting Pantoprazole Sodium 40 mg 06/23/19 18:00 06/24/19 09:11 Protonix PO 40 mg QDAY KERRIE Administration
[2019-06-24 23:31] VITALS: BP 137/74
== END 2019-06-24 23:34 | disposition home or self-care (01) | DRG 391 ==
LOC: ED 06:47 → OBSVTOIN 08:34 → 4A 08:34
PROVIDERS: ADMIT Internal Medicine; ATTEND Internal Medicine
PROC: 5A1D70Z Performance of Urinary Filtration, Intermittent, Less than 6 Hours Per Day (ICD-10-PCS; principal; 2019-06-22)
PROC: 5A1D70Z Performance of Urinary Filtration, Intermittent, Less than 6 Hours Per Day (ICD-10-PCS; 2019-06-24)
DX: K21.9 Gastro-esophageal reflux disease without esophagitis (principal); N18.6 End stage renal disease; E87.70 Fluid overload, unspecified; I08.1 Rheumatic disorders of both mitral and tricuspid valves; D61.818 Other pancytopenia; D63.8 Anemia in other chronic diseases classified elsewhere; I13.2 Hypertensive heart and chronic kidney disease with heart failure and with stage 5 chronic kidney disease, or end stage renal disease; I50.9 Heart failure, unspecified; F17.200 Nicotine dependence, unspecified, uncomplicated; I16.1 Hypertensive emergency; I25.10 Atherosclerotic heart disease of native coronary artery without angina pectoris; E11.22 Type 2 diabetes mellitus with diabetic chronic kidney disease; Z99.2 Dependence on renal dialysis; I25.2 Old myocardial infarction; Z79.51 Long term (current) use of inhaled steroids; Z79.899 Other long term (current) drug therapy; Z79.82 Long term (current) use of aspirin; Z79.4 Long term (current) use of insulin; Z82.49 Family history of ischemic heart disease and other diseases of the circulatory system; Z83.3 Family history of diabetes mellitus; Z71.6 Tobacco abuse counseling
CPT/HCPCS: 36415; 71045; 78452; 80048; 80053; 80061; 80074; 82962; 84443; 84484; 85025; 85027; 87040; 93005; 93010; 93017; 93306; 96374; 96375; G0378; A9502; J0360; J1644; J2405; J2785; J7030

== ENCOUNTER 2019-08-17 13:08 | Emergency (ER) | payer MEDICAID, OTHER ==
--- NOTE | 2019-08-17 13:39 | Emergency Department Report ---
ED General Adult HPI - General Chief complaint: Nausea/Vomiting/Diarrhea Stated complaint: NAUSEA Time Seen by Provider: 08/17/19 13:35 Source: patient, EMS Mode of arrival: Stretcher Limitations: No Limitations - Related Data Home Medications Medication Instructions Recorded Confirmed Last Taken ALBUTEROL Inhaler (OR & NICU) 2 puff IH QID PRN 05/17/18 06/22/19 09/01/18 [ProAir HFA Inhaler] 2 puff Amlodipine Besylate [Norvasc] 10 mg PO QDAY 05/17/18 06/22/19 09/22/18 10 mg Aspirin [Aspirin BABY CHEW TAB] 81 mg PO QDAY 05/17/18 06/22/19 09/21/18 81 mg Cholecalciferol (Vitamin D3) 1,000 unit PO QDAY 05/17/18 06/22/19 09/21/18 [Vitamin D3] 1000 units Gabapentin 300 mg PO BID 05/17/18 06/22/19 08/21/18 300 mg Insulin NPH Hum/Reg Insulin Hm 31 unit SQ QPM 05/17/18 06/22/19 09/21/18 [Relion Novolin 70-30 Vial] 15 units Insulin NPH Hum/Reg Insulin Hm 35 unit SQ QAM 05/17/18 06/22/19 09/21/18 [Relion Novolin 70-30 Vial] 35 units carvediloL [Carvedilol] 25 mg PO BID 05/17/18 06/22/19 09/22/18 25 mg Previous Rx's Medication Instructions Recorded Last Taken Type Famotidine [Pepcid] 10 mg PO BID #30 tablet 06/03/18 Unknown Rx Allergies Allergy/AdvReac Type Severity Reaction Status Date / Time No Known Allergies Allergy Unverified 05/10/18 17:04 ED Review of Systems ROS: Stated complaint: NAUSEA Other details as noted in HPI Comment: All other systems reviewed and negative ED Past Medical Hx - Past Medical History Hx Hypertension: Yes Hx Congestive Heart Failure: Yes Hx Diabetes: Yes Hx Renal Disease: Yes (HD) Hx Arthritis: Yes Hx COPD: No - Surgical History Past Surgical History?: Yes Additional Surgical History: LEFT UPPER ARM FISTULA - Family History Family history: no significant - Social History Smoking Status: Former Smoker Substance Use Type: None - Medications Home Medications: Home Medications Medication Instructions Recorded Confirmed Last Taken Type ALBUTEROL Inhaler (OR & NICU) 2 puff IH QID PRN 05/17/18 06/22/19 09/01/18 Hi story [ProAir HFA Inhaler] 2 puff Amlodipine Besylate [Norvasc] 10 mg PO QDAY 05/17/18 06/22/19 09/22/18 History 10 mg Aspirin [Aspirin BABY CHEW TAB] 81 mg PO QDAY 05/17/18 06/22/19 09/21/18 History 81 mg Cholecalciferol (Vitamin D3) 1,000 unit PO QDAY 05/17/18 06/22/19 09/21/18 History [Vitamin D3] 1000 units Gabapentin 300 mg PO BID 05/17/18 06/22/19 08/21/18 History 300 mg Insulin NPH Hum/Reg Insulin Hm 31 unit SQ QPM 05/17/18 06/22/19 09/21/18 History [Relion Novolin 70-30 Vial] 15 units Insulin NPH Hum/Reg Insulin Hm 35 unit SQ QAM 05/17/18 06/22/19 09/21/18 History [Relion Novolin 70-30 Vial] 35 units carvediloL [Carvedilol] 25 mg PO BID 05/17/18 06/22/19 09/22/18 History 25 mg Famotidine [Pepcid] 10 mg PO BID #30 tablet 06/03/18 06/22/19 Unknown Rx ED Physical Exam - General Limitations: No Limitations General appearance: alert, in no apparent distress - Head Head exam: Present: atraumatic, normocephalic - Eye Eye exam: Present: normal appearance - ENT ENT exam: Present: mucous membranes moist - Neck Neck exam: Present: normal inspection - Respiratory Respiratory exam: Present: normal lung sounds bilaterally. Absent: respiratory distress - Cardiovascular Cardiovascular Exam: Present: regular rate, normal rhythm. Absent: systolic murmur, diastolic murmur, rubs, gallop - GI/Abdominal GI/Abdominal exam: Present: soft, normal bowel sounds - Rectal Rectal exam: Present: deferred - Extremities Exam Extremities exam: Present: normal inspection - Back Exam Back exam: Present: normal inspection - Neurological Exam Neurological exam: Present: alert, oriented X3 - Psychiatric Psychiatric exam: Present: normal affect, normal mood - Skin Skin exam: Present: warm, dry, intact, normal color. Absent: rash ED Course Vital Signs 08/17/19 08/17/19 08/17/19 13:38 13:43 13:45 Temperature 98.1 F Pulse Rate 60 60 Respiratory 13 12 14 Rate Blood Pressure 137/73 Blood Pressure 145/75 [Left] O2 Sat by Pulse 97 96 Oximetry 08/17/19 16:00 Temperature Pulse Rate 59 L Respiratory 15 Rate Blood Pressure Blood Pressure 127/69 [Left] O2 Sat by Pulse 97 Oximetry ED Medical Decision Making - Lab Data Result diagrams: 08/17/19 14:12 08/17/19 14:12 - EKG Data EKG shows normal: sinus rhythm Rate: bradycardia - EKG Data Interpretation: no acute changes - Radiology Data Radiology results: report reviewed, image reviewed - Medical Decision Making Labs 08/17/19 08/17/19 08/17/19 14:12 14:12 14:13 WBC 5.0 RBC 4.22 Hgb 10.8 L Hct 32.5 L MCV 77 L MCH 26 L MCHC 33 RDW 14.5 Plt Count 98 L Lymph % (Auto) 26.5 Burke % (Auto) 12.3 H Eos % (Auto) 1.1 Baso % (Auto) 1.0 Lymph # 1.3 Burke # 0.6 Eos # 0.1 Baso # 0.0 Seg Neutrophils % 59.1 Seg Neutrophils # 3.0 Sodium 130 L Potassium 5.7 H Chloride 94.4 L Carbon Dioxide 20 L Anion Gap 21 BUN 49 H Creatinine 8.3 H Estimated GFR 8 BUN/Creatinine Ratio 6 Glucose 127 H Calcium 9.1 Phosphorus 4.00 Total Bilirubin 0.40 AST 31 ALT 22 Alkaline Phosphatase 126 Total Creatine Kinase 49 L NT-Pro-B Natriuret Pep 2661 H Total Protein 8.1 Albumin 3.5 L Albumin/Globulin Ratio 0.8 Vital Signs 08/17/19 08/17/19 08/17/19 13:38 13:43 13:45 Temperature 98.1 F Pulse Rate 60 60 Respiratory 13 12 14 Rate Blood Pressure 137/73 Blood Pressure 145/75 [Left] O2 Sat by Pulse 97 96 Oximetry 08/17/19 16:00 Temperature Pulse Rate 59 L Respiratory 15 Rate Blood Pressure Blood Pressure 127/69 [Left] O2 Sat by Pulse 97 Oximetry - Differential Diagnosis esrd; ro intracranial process Critical care attestation.: If time is entered above; I have spent that time in minutes in the direct care of this critically ill patient, excluding procedure time. ED Disposition Clinical Impression: ESRD (end stage renal disease) on dialysis, Weakness Disposition: TO HOME OR SELFCARE Is pt being admited?: No Does the pt Need Aspirin: No Condition: Stable Additional Instructions: FOLLOW UP WITH MD IN AM CONTINUE MEDS AND HD SCHEDULED EKG, CHEST XRAY, CT ALL NORMAL TODAY Referrals: MARY ANNE YOUSSEF JR, MD [Primary Care Provider] - 3-5 Days Time of Disposition: 17:56
--- NOTE | 2019-08-17 14:08 | XRay Report ---
CHEST 1 VIEW 08/17/2019 1:37 PM INDICATION / CLINICAL INFORMATION: Weakness. COMPARISON: One view of the chest from 06/22/2019. FINDINGS: SUPPORT DEVICES: None. HEART / MEDIASTINUM: No significant abnormality. LUNGS / PLEURA: Lung volumes are reduced with probable bibasilar atelectasis. No additional significa nt pulmonary abnormality, pleural effusion or pneumothorax. ADDITIONAL FINDINGS: No significant additional findings. IMPRESSION: Low lung volumes with probable bibasilar atelectasis. Signer Name: Jake Siddiqi MD Signed: 08/17/2019 2:04 PM Workstation Name: [id number]
[2019-08-17 14:33] LABS: Eosinophils # (Auto) 0.1 K/mm3 (0.0-0.4); Eosinophils % (Auto) 1.1 % (0.0-4.3); Hematocrit 32.5 % (35.5-45.6); Hemoglobin 10.8 gm/dl (11.8-15.2); Lymphocytes # (Auto) 1.3 K/mm3 (1.2-5.4); Lymphocytes % (Auto) 26.5 % (13.4-35.0); Mean Corpuscular HGB Conc 33 % (32-34); Mean Corpuscular Volume 77 fl (84-94); Monocytes # (Auto) 0.6 K/mm3 (0.0-0.8); Monocytes % (Auto) 12.3 % (0.0-7.3); Red Blood Count 4.22 M/mm3 (3.65-5.03); Red Cell Distribution Width 14.5 % (13.2-15.2)
[2019-08-17 14:37] LABS: Platelet Count 98 K/mm3 (140-440)
[2019-08-17 14:56] LABS: Albumin 3.5 g/dL (3.9-5); Calcium 9.1 mg/dL (8.4-10.2)
[2019-08-17 16:00] VITALS: BP 127/69
--- NOTE | 2019-08-17 16:56 | Cat Scan Report ---
CT BRAIN: 08/17/2019 INDICATION / CLINICAL INFORMATION: ams. COMPARISON: None available. FINDINGS: BRAIN/INTRACRANIAL STRUCTURES: Unenhanced CT images of the brain dated straight no evidence of acute intracranial abnormality. Ventricles and sulci are slightly prominent in size, consistent with normal age-related atrophic oakley ge. That she chronic white matter hypoattenuation is present throughout the cerebral hemispheric white ma tter, consistent with chronic small vessel ischemic change. There is no CT evidence of acute ischemic injury, hemorrhage, or mass. There are no abnormal extra-ax ial fluid collections. Atherosclerotic vascular calcifications are present in the distal internal carotid arteries and verte bral arteries. EXTRACRANIAL STRUCTURES: Unremarkable. IMPRESSION: No acute abnormality. Chronic and age-related changes. All CT scans at this location are performed using dose reduction to ALARA by means of automated expos ure control. Signer Name: Rey Hyde MD Signed: 08/17/2019 4:52 PM Workstation Name: [id number]
== END 2019-08-17 21:40 | disposition home or self-care (01) ==
LOC: EEVIPCON 13:08 → ED 13:08
DX: R53.1 Weakness (principal); R11.2 Nausea with vomiting, unspecified; E11.22 Type 2 diabetes mellitus with diabetic chronic kidney disease; I13.2 Hypertensive heart and chronic kidney disease with heart failure and with stage 5 chronic kidney disease, or end stage renal disease; I50.9 Heart failure, unspecified; N18.6 End stage renal disease; M19.90 Unspecified osteoarthritis, unspecified site; Z99.2 Dependence on renal dialysis; Z79.4 Long term (current) use of insulin; Z79.899 Other long term (current) drug therapy
CPT/HCPCS: 36415; 70450; 71045; 80053; 82550; 83880; 84100; 85025; 93005; 93010

== ENCOUNTER 2019-10-16 11:19 | Observation (INO) | payer MEDICARE ==
[2019-10-16] MEDS ORDERED: MORPHINE 4 MG/1 ML INJ IV ONE (12:00)
[2019-10-16] MEDS ORDERED: ASPIRIN 325 MG TAB PO ONE (12:00)
--- NOTE | 2019-10-16 12:34 | XRay Report ---
CHEST 1 VIEW INDICATION: CP. COMPARISON: 10/03/2019 FINDINGS: Support devices: None. Heart: Stable mild cardiomegaly. Lungs/Pleura: Lung volumes are mildly diminished. Mild increased markings are seen at the lung bases. Additional findings: None. IMPRESSION: Diminished lung volumes with suspected superimposed atelectasis. Signer Name: Elton Ambrocio MD Signed: 10/16/2019 12:29 PM Workstation Name: [id number]
[2019-10-16 12:41] LABS: Basophils # (Auto) 0.1 K/mm3 (0.0-0.1); Basophils % (Auto) 0.6 % (0.0-1.8); Eosinophils % (Auto) 0.2 % (0.0-4.3); Hematocrit 25.4 % (35.5-45.6); Hemoglobin 8.4 gm/dl (11.8-15.2); Lymphocytes # (Auto) 0.8 K/mm3 (1.2-5.4); Lymphocytes % (Auto) 8.9 % (13.4-35.0); Mean Corpuscular HGB Conc 33 % (32-34); Mean Corpuscular Volume 75 fl (84-94); Monocytes # (Auto) 0.7 K/mm3 (0.0-0.8); Monocytes % (Auto) 7.9 % (0.0-7.3); Platelet Count 141 K/mm3 (140-440); Red Cell Distribution Width 18.5 % (13.2-15.2)
[2019-10-16 12:44] LABS: INR 1.24 (0.87-1.13); Partial Thromboplastin Time 40.4 Sec. (24.2-36.6)
[2019-10-16 13:00] LABS: Albumin 2.7 g/dL (3.9-5); Calcium 8.9 mg/dL (8.4-10.2)
--- NOTE | 2019-10-16 13:28 | Emergency Department Report ---
ED Chest Pain HPI - General Chief Complaint: Chest Pain Stated Complaint: CP Time Seen by Provider: 10/16/19 11:40 Source: patient Mode of arrival: Ambulatory Limitations: No Limitations - History of Present Illness Initial Comments: Patient is a 64-year-old male presents emergency room with complaints of chest pain that began 2 days ago. He states it is across the chest and feels like a squeezing sensation. He denies any radiation of the pain. He states he also has shortness of breath, nausea, one episode of vomiting. He denies any fever, leg swelling. He has a past medical history of diabetes, hepatitis C with HCC, end-stage renal disease, IVC thrombus. He states that he last went to dialysis 2 days ago. He denies any allergies to medications. He denies any aspirin use. He denies any missed doses of his Lovenox. Severity scale (0 -10): 7 - Related Data Home Medications Medication Instructions Recorded Confirmed Last Taken Albuterol INH(or & Nicu Only) 2 puff IH QID PRN 05/17/18 10/16/19 09/01/18 [ProAir HFA Inhaler] 2 puff Amlodipine Besylate [Norvasc] 10 mg PO QDAY 05/17/18 10/16/19 10/02/19 Previous Rx's Medication Instructions Recorded Last Taken Type Enoxaparin 80 mg SQ Q12HR #60 syringe 10/05/19 Unknown Rx Gabapentin 300 mg PO BID #60 capsule 10/05/19 Unknown Rx Pantoprazole [Protonix TAB] 40 mg PO QDAY #30 tablet 10/05/19 Unknown Rx carvediloL [Coreg] 3.125 mg PO BID #60 tablet 10/05/19 Unknown Rx Allergies Allergy/AdvReac Type Severity Reaction Status Date / Time No Known Allergies Allergy Unverified 05/10/18 17:04 Heart Score - HEART Score History: Moderately suspicious EKG: Non-specific Age: 45-65 Risk factors: > 3 risk factors or hx of atherosclerotic disease Troponin: 1-3x normal limit HEART Score: 6 ED Review of Systems ROS: Stated complaint: CP Other details as noted in HPI ED Past Medical Hx - Past Medical History Previous Medical History?: Yes Hx Hypertension: Yes Hx Congestive Heart Failure: Yes Hx Diabetes: Yes Hx Renal Disease: Yes (HD) Hx Arthritis: Yes Hx Asthma: No Hx COPD: No - Surgical History Past Surgical History?: Yes Additional Surgical History: LEFT UPPER ARM FISTULA - Social History Smoking Status: Current Some Day Smoker Substance Use Type: None - Medications Home Medications: Home Medications Medication Instructions Recorded Confirmed Last Taken Type Albuterol INH(or & Nicu Only) 2 puff IH QID PRN 05/17/18 10/16/19 09/01/18 History [ProAir HFA Inhaler] 2 puff Amlodipine Besylate [Norvasc] 10 mg PO QDAY 05/17/18 10/16/19 10/02/19 History Enoxaparin 80 mg SQ Q12HR #60 syringe 10/05/19 10/16/19 Unknown Rx Gabapentin 300 mg PO BID #60 capsule 10/05/19 10/16/19 Unknown Rx Pantoprazole [Protonix TAB] 40 mg PO QDAY #30 tablet 10/05/19 10/16/19 Unknown Rx carvediloL [Coreg] 3.125 mg PO BID #60 tablet 10/05/19 10/16/19 Unknown Rx ED Physical Exam - General Limitations: No Limitations ED Course Vital Signs 10/16/19 10/16/19 10/16/19 11:23 11:52 12:30 Temperature 98.5 F Pulse Rate 76 76 Respiratory 22 21 16 Rate Blood Pressure 176/69 Blood Pressure 188/90 [Right] O2 Sat by Pulse 99 97 Oximetry 10/16/19 10/16/19 13:23 15:30 Temperature 98.5 F Pulse Rate 73 66 Respiratory 17 15 Rate Blood Pressure Blood Pressure 143/85 156/73 [Right] O2 Sat by Pulse 94 96 Oximetry - Consultations Consultation #1: 10/16/19 13:[address] Yip, Hospitalist, who will accept and resume care of patient, advised to write bridge orders to observation, telemetry. KARLENE score - Karlene Score Age > 65: (0) No Aspirin use within the Past 7 Days: (1) Yes 3 or more CAD Risk Factors: (1) Yes 2 or more Angina events in past 24 hrs: (1) Yes Known CAD with more than 50% Stenosis: (0) No Elevated Cardiac Markers: (1) Yes ST Deviation Greater than 0.5mm: (0) No KARLENE Score: 4 ED Medical Decision Making - Lab Data Result diagrams: 10/16/19 12:07 10/16/19 12:07 Lab Results 10/16/19 10/16/19 10/16/19 Range/Units 12:07 12:07 12:07 WBC 8.7 (4.5-11.0) K/mm3 RBC 3.40 L (3.65-5.03) M/mm3 Hgb 8.4 L (11.8-15.2) gm/dl Hct 25.4 L (35.5-45.6) % MCV 75 L (84-94) fl MCH 25 L (28-32) pg MCHC 33 (32-34) % RDW 18.5 H (13.2-15.2) % Plt Count 141 (140-440) K/mm3 Lymph % (Auto) 8.9 L (13.4-35.0) % Taylor % (Auto) 7.9 H (0.0-7.3) % Eos % (Auto) 0.2 (0.0-4.3) % Baso % (Auto) 0.6 (0.0-1.8) % Lymph # 0.8 L (1.2-5.4) K/mm3 Taylor # 0.7 (0.0-0.8) K/mm3 Eos # 0.0 (0.0-0.4) K/mm3 Baso # 0.1 (0.0-0.1) K/mm3 Seg Neutrophils % 82.4 H (40.0-70.0) % Seg Neutrophils # 7.2 (1.8-7.7) K/mm3 PT 15.8 H (12.2-14.9) Sec. INR 1.24 H (0.87-1.13) APTT 40.4 H (24.2-36.6) Sec. Sodium 129 L (137-145) mmol/L Potassium 4.4 (3.6-5.0) mmol/L Chloride 89.3 L (98-107) mmol/L Carbon Dioxide 19 L (22-30) mmol/L Anion Gap 25 mmol/L BUN 42 H (9-20) mg/dL Creatinine 7.8 H (0.8-1.5) mg/dL Estimated GFR 8 ml/min BUN/Creatinine Ratio 5 % Glucose 106 H (75-100) mg/dL Calcium 8.9 (8.4-10.2) mg/dL Total Bilirubin 0.70 (0.1-1.2) mg/dL AST 62 H (5-40) units/L ALT 15 (7-56) units/L Alkaline Phosphatase 102 (35-129) units/L Troponin T 0.037 H (0.00-0.029) ng/mL Total Protein 8.5 H (6.3-8.2) g/dL Albumin 2.7 L (3.9-5) g/dL Albumin/Globulin Ratio 0.5 % Triglycerides 98 (2-149) mg/dL Cholesterol 88 (50-199) mg/dL LDL Cholesterol Direct 43 L (50-130) mg/dL HDL Cholesterol 22 L (40-59) mg/dL Cholesterol/HDL Ratio 4.00 % - Radiology Data Radiology results: report reviewed CHEST 1 VIEW INDICATION: CP. COMPARISON: 10/03/2019 FINDINGS: Support devices: None. Heart: Stable mild cardiomegaly. Lungs/Pleura: Lung volumes are mildly diminished. Mild increased markings are seen at the lung bases. Additional findings: None. IMPRESSION: Diminished lung volumes with suspected superimposed atelectasis. Signer Name: Elton Ambrocio MD Signed: 10/16/2019 12:29 PM Workstation Name: [id number] Transcribed By: ES Dictated By: Elton Ambrocio MD Electronically Authenticated By: Elton Ambrocio MD Signed Date/Time: 10/16/191228 DD/ TD/TT: - Medical Decision Making Patient is a 64-year-old male presents emergency room with complaints of chest pain that began 2 days ago. He states it is across the chest and feels like a squeezing sensation. He denies any radiation of the pain. He states he also has shortness of breath, nausea, one episode of vomiting. He denies any fever, leg swelling. He has a past medical history of diabetes, hepatitis C with HCC, end-stage renal disease, IVC thrombus. He states that he last went to dialysis 2 days ago. He denies any allergies to medications. He denies any aspirin use. He denies any missed doses of his Lovenox. vitals with elevated BP which improved to normal upon repeat. pt given aspirin and morphine. labs with chronic stable anemia, hyponatremia at 129, chloride 89, kidney function is at prior baseline, pt has an elevated troponin which he has not had on previous visits. CXR: Diminished lung volumes with suspected superimposed atelectasis. pts heart score and KARLENE score are both high risk. pt will be admitted to the hospitalist service secondary to CP and elevated troponin and risk factors. will leave it to the hospitalist/calender operator helper discretion for fluid/electrolyte balance, given pt is due for dialysis tomorrow. - Differential Diagnosis ACS, CHF, costochrondritis, PE, GERD, PUD, aortic dissection, CM Critical care attestation.: If time is entered above; I have spent that time in minutes in the direct care of this critically ill patient, excluding procedure time. ED Disposition Clinical Impression: SOB (shortness of breath), Elevated troponin, Hyponatremia Chest pain Qualifiers: Chest pain type: unspecified Qualified Code(s): R07.9 - Chest pain, unspecified Disposition: 09 OP ADMIT IP TO THIS HOSP Is pt being admited?: Yes Does the pt Need Aspirin: Yes (given) Condition: Stable Time of Disposition: 13:31
[2019-10-16] MEDS ORDERED: ALBUTEROL 8.5 GM INHALATION IH PRN (16:41)
[2019-10-16] MEDS ORDERED: HYDROmorphone 1 MG/1 ML INJ IV PRN (16:42)
[2019-10-16] MEDS ORDERED: ONDANSETRON 4 MG/2 ML INJ IV PRN (16:42)
[2019-10-16] MEDS ORDERED: oxyCODONE /ACETAMINOPHEN 5-325MG TAB PO PRN (16:42)
[2019-10-16] MEDS ORDERED: ACETAMINOPHEN 325 MG TAB PO PRN (16:42)
[2019-10-16] MEDS ORDERED: ALBUTEROL 2.5 MG/3 ML NEBU IH PRN (16:46)
--- NOTE | 2019-10-16 16:55 | History and Physical Report ---
History of Present Illness Date of examination: 10/16/19 Date of admission: 10/16/19 13:37 Chief complaint: Chest pain for 2 days-intermittent in nature History of present illness: 63-year-old -[place] male with history of end-stage renal disease, hypertension, asthma comes in for chest pain for the last 2 days. Chest pain was present since last dialysis on Wednesday which was 10/14/2019. Chest pain continues intermittently for the last 48 hours. No nausea or vomiting. Had one episode of vomiting. Also shortness of breath present. Orthopnea present. No fever or chills. Patient has history of IVC thrombus for which he is on Lovenox 80 mg subcu every 12. No syncope or seizures. Chest pain is about 6 on a scale of 1-10. Intermittent in nature. Dull to sharp. No diaphoresis. No radiation. No palpitations. Some orthopnea present. Shortness of breath on exertion present. Exercises is a precipitating factor rest is a relieving factor. No recent travel. Past Medical History Previous Medical History?: Yes Hypertension: Yes Congestive Heart Failure: Yes Diabetes: Yes Renal Disease: Yes (HD) Arthritis: Yes Surgical History Past Surgical History?: Yes Additional Surgical History: LEFT UPPER ARM FISTULA Social History Smoking Status: Current Some Day Smoker Substance Use Type: None Family history Htn Medications Home Medications: Home Medications Medication Instructions Recorded Confirmed Last Taken Type Albuterol INH(or & Nicu Only) 2 puff IH QID PRN 05/17/18 10/16/19 09/01/18 History [ProAir HFA Inhaler] 2 puff Amlodipine Besylate [Norvasc] 10 mg PO QDAY 05/17/18 10/16/19 10/02/19 History Enoxaparin 80 mg SQ Q12HR #60 syringe 10/05/19 10/16/19 Unknown Rx Gabapentin 300 mg PO BID #60 capsule 10/05/19 10/16/19 Unknown Rx Pantoprazole [Protonix TAB] 40 mg PO QDAY #30 tablet 10/05/19 10/16/19 Unknown Rx carvediloL [Coreg] 3.125 mg PO BID #60 tablet 10/05/19 10/16/19 Unknown Rx Medications and Allergies Allergies Allergy/AdvReac Type Severity Reaction Status Date / Time No Known Allergies Allergy Unverified 09/11/18 17:04 Home Medications Medication Instructions Recorded Confirmed Last Taken Type Albuterol INH(or & Nicu Only) 2 puff IH QID PRN 05/17/18 10/16/19 09/01/18 History [ProAir HFA Inhaler] 2 puff Amlodipine Besylate [Norvasc] 10 mg PO QDAY 05/17/18 10/16/19 10/02/19 History Enoxaparin 80 mg SQ Q12HR #60 syringe 10/05/19 10/16/19 Unknown Rx Gabapentin 300 mg PO BID #60 capsule 10/05/19 10/16/19 Unknown Rx Pantoprazole [Protonix TAB] 40 mg PO QDAY #30 tablet 10/05/19 10/16/19 Unknown Rx carvediloL [Coreg] 3.125 mg PO BID #60 tablet 10/05/19 10/16/19 Unknown Rx Active Meds: Active Medications Acetaminophen (Tylenol) 650 mg PO Q4H PRN PRN Reason: Pain MILD(1-3)/Fever >100.5/MAYES Albuterol (Proventil) 2.5 mg IH QIDRT PRN PRN Reason: Shortness Of Breath Amlodipine Besylate (Amlodipine) 10 mg PO QDAY [facility] Aspirin (Aspirin) 325 mg PO QDAY [facility] Carvedilol (Coreg) 3.125 mg PO BID [facility] Famotidine (Pepcid) 20 mg PO DAILY [facility] Gabapentin (Gabapentin) 300 mg PO BID [facility] Heparin Sodium (Porcine) (Heparin) 5,000 unit SUB-Q Q12HR [facility] Hydromorphone HCl (Dilaudid) 0.5 mg IV Q3H PRN PRN Reason: Pain , Severe (7-10) Ondansetron HCl (Zofran) 4 mg IV Q8H PRN PRN Reason: Nausea And Vomiting Oxycodone/Acetaminophen (Percocet 5/325) 1 tab PO Q6H PRN PRN Reason: Pain, Moderate (4-6) Pantoprazole Sodium (Protonix) 40 mg PO QDAY [facility] Sodium Chloride (Sodium Chloride Flush Syringe 10 Ml) 10 ml IV BID [facility] Sodium Chloride (Sodium Chloride Flush Syringe 10 Ml) 10 ml IV PRN PRN PRN Reason: LINE FLUSH Review of Systems All systems: negative Constitutional: no weight loss, no weight gain, no fever, no chills, no sweats, no night sweats Ears, nose, mouth and throat: no ear pain, no ear discharge, no tinnitis, no decreased hearing, no nose pain Cardiovascular: chest pain, shortness of breath, dyspnea on exertion Respiratory: no cough, no cough with sputum, no excessive sputum, no hemoptysis, no shortness of breath, no dyspnea on exertion Gastrointestinal: no abdominal pain, no nausea, no vomiting, no diarrhea, no constipation, no change in bowel habits, no hematemesis, no coffee ground emesis Genitourinary Male: no dysuria, no hematuria, no flank pain, no discharge, no urinary frequency, no urinary hesitancy, no nocturia, no incontinence, no erectile dysfunction, no genital pain Rectal: no pain, no incontinence, no bleeding Musculoskeletal: no neck stiffness, no neck pain, no shooting arm pain, no arm numbness/tingling, no low back pain, no shooting leg pain, no leg numbness/tingling, no redness of joints Integumentary: no rash, no pruritis, no redness, no sores, no wounds, no jaundice, no boils, no blisters Neurological: no head injury, no transient paralysis, no paralysis, no seizures, no syncope Psychiatric: anxiety Endocrine: no cold intolerance, no heat intolerance, no polyphagia, no excessive thirst, no polydipsia, no polyuria Hematologic/Lymphatic: no easy bruising, no easy bleeding Allergic/Immunologic: no urticaria, no allergic rhinitis, no wheezing Exam - Constitutional Vitals: Temp Pulse Resp BP Pulse Ox 98.5 F 66 15 156/73 96 10/16/19 15:30 10/16/19 15:30 10/16/19 15:30 10/16/19 15:30 10/16/19 15:30 General appearance: Present: no acute distress, well-nourished - EENT Eyes: Present: PERRL ENT: hearing intact, clear oral mucosa - Neck Neck: Present: supple, normal ROM - Respiratory Respiratory effort: normal Respiratory: bilateral: CTA - Cardiovascular Heart rate: 78 Rhythm: regular Heart Sounds: Present: S1 & S2. Absent: rub, click - Extremities Extremities: no ischemia, pulses intact, pulses symmetrical, No edema Peripheral Pulses: within normal limits - Abdominal General gastrointestinal: Present: soft, non-tender, non-distended, normal bowel sounds Male genitourinary: Present: normal - Rectal Rectal Exam: deferred - Integumentary Integumentary: Present: clear, warm, dry - Musculoskeletal Musculoskeletal: gait normal, strength equal bilaterally - Psychiatric Psychiatric: appropriate mood/affect, intact judgment & insight - Neurologic Neurologic: CNII-XII intact, moves all extremities - Allied Health Allied health notes reviewed: nursing, case management KARLENE score - Karlene Score Age > 65: (1) Yes Aspirin use within the Past 7 Days: (1) Yes 3 or more CAD Risk Factors: (1) Yes 2 or more Angina events in past 24 hrs: (1) Yes Known CAD with more than 50% Stenosis: (0) No Elevated Cardiac Markers: (1) Yes ST Deviation Greater than 0.5mm: (0) No KARLENE Score: 5 Results - Labs CBC & Chem 7: 10/16/19 12:07 10/16/19 12:07 Labs: Laboratory Last Values WBC 8.7 K/mm3 (4.5-11.0) 10/16/19 12:07 RBC 3.40 M/mm3 (3.65-5.03) L 10/16/19 12:07 Hgb 8.4 gm/dl (11.8-15.2) L 10/16/19 12:07 Hct 25.4 % (35.5-45.6) L 10/16/19 12:07 MCV 75 fl (84-94) L 10/16/19 12:07 MCH 25 pg (28-32) L 10/16/19 12:07 MCHC 33 % (32-34) 10/16/19 12:07 RDW 18.5 % (13.2-15.2) H 10/16/19 12:07 Plt Count 141 K/mm3 (140-440) 10/16/19 12:07 Lymph % (Auto) 8.9 % (13.4-35.0) L 10/16/19 12:07 [place] % (Auto) 7.9 % (0.0-7.3) H 10/16/19 12:07 Eos % (Auto) 0.2 % (0.0-4.3) 10/16/19 12:07 Baso % (Auto) 0.6 % (0.0-1.8) 10/16/19 12:07 Lymph # 0.8 K/mm3 (1.2-5.4) L 10/16/19 12:07 [place] # 0.7 K/mm3 (0.0-0.8) 10/16/19 12:07 Eos # 0.0 K/mm3 (0.0-0.4) 10/16/19 12:07 Baso # 0.1 K/mm3 (0.0-0.1) 10/16/19 12:07 Seg Neutrophils % 82.4 % (40.0-70.0) H 10/16/19 12:07 Seg Neutrophils # 7.2 K/mm3 (1.8-7.7) 10/16/19 12:07 PT 15.8 Sec. (12.2-14.9) H 10/16/19 12:07 INR 1.24 (0.87-1.13) H 10/16/19 12:07 APTT 40.4 Sec. (24.2-36.6) H 10/16/19 12:07 Sodium 129 mmol/L (137-145) L 10/16/19 12:07 Potassium 4.4 mmol/L (3.6-5.0) 10/16/19 12:07 Chloride 89.3 mmol/L (98-107) L 10/16/19 12:07 Carbon Dioxide 19 mmol/L (22-30) L 10/16/19 12:07 Anion Gap 25 mmol/L 10/16/19 12:07 BUN 42 mg/dL (9-20) H 10/16/19 12:07 Creatinine 7.8 mg/dL (0.8-1.5) H 10/16/19 12:07 Estimated GFR 8 ml/min 10/16/19 12:07 BUN/Creatinine Ratio 5 % 10/16/19 12:07 Glucose 106 mg/dL (75-100) H 10/16/19 12:07 Calcium 8.9 mg/dL (8.4-10.2) 10/16/19 12:07 Total Bilirubin 0.70 mg/dL (0.1-1.2) 10/16/19 12:07 AST 62 units/L (5-40) H 10/16/19 12:07 ALT 15 units/L (7-56) 10/16/19 12:07 Alkaline Phosphatase 102 units/L (35-129) 10/16/19 12:07 Troponin T 0.037 ng/mL (0.00-0.029) H 10/16/19 12:07 Total Protein 8.5 g/dL (6.3-8.2) H 10/16/19 12:07 Albumin 2.7 g/dL (3.9-5) L 10/16/19 12:07 Albumin/Globulin Ratio 0.5 % 10/16/19 12:07 Triglycerides 98 mg/dL (2-149) 10/16/19 12:07 Cholesterol 88 mg/dL (50-199) 10/16/19 12:07 LDL Cholesterol Direct 43 mg/dL (50-130) L 10/16/19 12:07 HDL Cholesterol 22 mg/dL (40-59) L 10/16/19 12:07 Cholesterol/HDL Ratio 4.00 % 10/16/19 12:07 Short CBC 10/16/19 Range/Units 12:07 WBC 8.7 (4.5-11.0) K/mm3 Hgb 8.4 L (11.8-15.2) gm/dl Hct 25.4 L (35.5-45.6) % Plt Count 141 (140-440) K/mm3 BMP 10/16/19 12:07 Sodium 129 L Potassium 4.4 Chloride 89.3 L Carbon Dioxide 19 L BUN 42 H Creatinine 7.8 H Glucose 106 H Calcium 8.9 Cardiac Enzymes 10/16/19 Range/Units 12:07 Troponin T 0.037 H (0.00-0.029) ng/mL Liver Function 10/16/19 Range/Units 12:07 Total Bilirubin 0.70 (0.1-1.2) mg/dL AST 62 H (5-40) units/L ALT 15 (7-56) units/L Alkaline Phosphatase 102 (35-129) units/L Albumin 2.7 L (3.9-5) g/dL - Imaging and Cardiology EKG: report reviewed (Sinus rhythm, heart rate of 78/min, probable left atrial enlargement, left ventricular hypertrophy) Assessment and Plan Advance Directives: Yes (Full code) VTE prophylaxis?: Chemical Plan of care discussed with patient/family: Yes - Patient Problems (1) Chest pain Current Visit: Yes Status: Acute Qualifiers: Chest pain type: unspecified Qualified Code(s): R07.9 - Chest pain, unspecified Plan to address problem: Chest pain rule out [place] Patient to be admitted in observation status Patient has to be admitted because of the elevated troponin His troponins were normal before Troponins every 6x3 Lexiscan in the morning Cardiology consult (2) Elevated troponin Current Visit: Yes Status: Acute Plan to address problem: Elevated troponin is new Previous troponins were normal Patient has end-stage renal disease There may be a troponin leak We will get serial troponins and Lexiscan in the morning (3) Hyponatremia Current Visit: Yes Status: Acute Plan to address problem: Sodium of 129 . Secondary to moderate volume overload Increase ultrafiltration (4) Anemia Current Visit: No Status: Chronic Qualifiers: Anemia type: due to chronic kidney disease (5) HTN (hypertension) Current Visit: No Status: Chronic Qualifiers: Hypertension type: essential hypertension Qualified Code(s): I10 - Essential (primary) hypertension Plan to address problem: Continue antihypertensives and adjust medications as required Check blood pressure every shift (6) ESRD (end stage renal disease) on dialysis Current Visit: No Status: Chronic Plan to address problem: Continue hemodialysis as per schedule Nephrology consult requested Some volume overload (7) Asthma Current Visit: Yes Status: Inactive Plan to address problem: Continue bronchodilators like albuterol 2 puffs 4 times daily (8) Nicotine dependence Current Visit: No Status: Chronic Qualifiers: Substance use status: in withdrawal Plan to address problem: Continue NicoDerm patch Patient counseled about stopping smoking (9) Malnutrition Current Visit: Yes Status: Chronic Qualifiers: Protein-calorie malnutrition severity: moderate Plan to address problem: Moderate to severe malnutrition Dietitian consult requested (10) Type 2 diabetes mellitus Current Visit: Yes Status: Chronic Qualifiers: Diabetes mellitus buttermaker continuous churn insulin use: without halfway use Plan to address problem: Patient not on any hypoglycemics Check hemoglobin A1c Coverage for now Blood glucose level 106 (11) DVT prophylaxis Current Visit: No Status: Acute Plan to address problem: Heparin 5000 subcu every 12 started and GI prophylaxis
[2019-10-16] MEDS: amLODIPine 10 MG TAB PO SCH (17:39)
[2019-10-16] MEDS: PANTOPRAZOLE 40 MG TAB PO SCH (17:39)
[2019-10-16] MEDS ORDERED: ENOXAPARIN 80 MG/0.8 ML INJ SUB-Q SCH (22:00)
[2019-10-16] MEDS: HEPARIN 5,000 UNIT/1 ML VIAL SUB-Q SCH (23:00)
[2019-10-16] MEDS: GABAPENTIN 300 MG CAP PO SCH (23:00)
[2019-10-16] MEDS: carvediloL 3.125 MG TAB PO SCH (23:00)
[2019-10-16] MEDS: FAMOTIDINE 20 MG TAB PO SCH (23:04)
[2019-10-17 05:23] LABS: Basophils % (Auto) 0.3 % (0.0-1.8); Eosinophils % (Auto) 0.6 % (0.0-4.3); Hematocrit 24.2 % (35.5-45.6); Lymphocytes # (Auto) 0.8 K/mm3 (1.2-5.4); Mean Corpuscular HGB Conc 33 % (32-34); Mean Corpuscular Volume 74 fl (84-94); Monocytes # (Auto) 0.5 K/mm3 (0.0-0.8); Platelet Count 148 K/mm3 (140-440); Red Blood Count 3.28 M/mm3 (3.65-5.03); Red Cell Distribution Width 18.2 % (13.2-15.2)
[2019-10-17 05:47] LABS: Albumin 2.7 g/dL (3.9-5); Calcium 8.6 mg/dL (8.4-10.2)
[2019-10-17] MEDS: PANTOPRAZOLE 40 MG TAB PO SCH (09:36)
[2019-10-17] MEDS: carvediloL 3.125 MG TAB PO SCH (09:36)
[2019-10-17] MEDS: amLODIPine 10 MG TAB PO SCH (09:36)
[2019-10-17] MEDS: GABAPENTIN 300 MG CAP PO SCH (09:36)
[2019-10-17] MEDS: FAMOTIDINE 20 MG TAB PO SCH (09:36)
[2019-10-17] MEDS: HEPARIN 5,000 UNIT/1 ML VIAL SUB-Q SCH (09:37)
[2019-10-17] MEDS ORDERED: PNEUMOCOCCAL 23 Valent 0.5 ML VIAL IM ONE (10:00)
[2019-10-17] MEDS ORDERED: ASPIRIN 325 MG TAB PO SCH (10:00)
[2019-10-17] MEDS ORDERED: FLU VACC QUAD 2019-20 (3 YR UP)/PF 60 MCG/0.5 ML SYRINGE IM ONE (10:00)
--- NOTE | 2019-10-17 11:27 | Consultation ---
History of Present Illness Consult date: 10/17/19 Requesting physician: NITIN UNDERWOOD Consult reason: chest pain History of present illness: Pt is a 64 y.o. AA male with a past medical hx of ESRD on HD (), IVC thrombus (on Lovenox subQ BID), HTN, COPD, tobacco use, cocaine use, HCV, cirrhosis, and recently diagnosed liver mass. He has been seen by our group during prior hospitalizations. Pt presented with c/o of intermittent mid-sternal CP which he describes as sharp and non-radiating x 4 days. He states he was laying down at the onset of his CP. Upon exam, he reports his CP is still present but has improved slightly. He denies SOB, orthopnea, palpitations, diaphoresis, and N/V. Trop elevated 0.037 x 2. ECG shows NSR with LVH. CXR shows diminished lung volumes with suspected superimposed atelectasis. Lexiscan MPI completed 05/2019 - negative for ischemia. Echo completed 05/2019 - EF 60-65%; mod MV leaflet calcification; mild MR; mild TR. Past History Past Medical History: cancer (liver), COPD, diabetes, hypertension, other (IVC thrombus, asthma, HCV, cirrhosis). denies: acute [place] Past Surgical History: Other (L arm AV fistula) Social history: smoking (1 cigarette per day), other (cocaine use). denies: alcohol abuse Medications and Allergies Allergies Allergy/AdvReac Type Severity Reaction Status Date / Time No Known Allergies Allergy Unverified 05/10/18 17:04 Home Medications Medication Instructions Recorded Confirmed Last Taken Type Albuterol INH(or & Nicu Only) 2 puff IH QID PRN 05/17/18 10/16/19 09/01/18 History [ProAir HFA Inhaler] 2 puff Amlodipine Besylate [Norvasc] 10 mg PO QDAY 05/17/18 10/16/19 10/02/19 History Enoxaparin 80 mg SQ Q12HR #60 syringe 10/05/19 10/16/19 Unknown Rx Gabapentin 300 mg PO BID #60 capsule 10/05/19 10/16/19 Unknown Rx Pantoprazole [Protonix TAB] 40 mg PO QDAY #30 tablet 10/05/19 10/16/19 Unknown Rx carvediloL [Coreg] 3.125 mg PO BID #60 tablet 10/05/19 10/16/19 Unknown Rx Active Meds: Active Medications Acetaminophen (Tylenol) 650 mg PO Q4H PRN PRN Reason: Pain MILD(1-3)/Fever >100.5/MAYES Albuterol (Proventil) 2.5 mg IH QIDRT PRN PRN Reason: Shortness Of Breath Amlodipine Besylate (Amlodipine) 10 mg PO QDAY [facility] Last Admin: 10/17/19 09:36 Dose: 10 mg Documented by: Aspirin (Aspirin) 325 mg PO QDAY [facility] Last Admin: 10/17/19 09:36 Dose: 325 mg Documented by: Carvedilol (Coreg) 3.125 mg PO BID [facility] Last Admin: 10/17/19 09:36 Dose: 3.125 mg Documented by: Famotidine (Pepcid) 20 mg PO DAILY [facility] Last Admin: 10/17/19 09:36 Dose: 20 mg Documented by: Gabapentin (Gabapentin) 300 mg PO BID [facility] Last Admin: 10/17/19 09:36 Dose: 300 mg Documented by: Heparin Sodium (Porcine) (Heparin) 5,000 unit SUB-Q Q12HR [facility] Last Admin: 10/17/19 09:37 Dose: 5,000 unit Documented by: Hydromorphone HCl (Dilaudid) 0.5 mg IV Q3H PRN PRN Reason: Pain , Severe (7-10) Ondansetron HCl (Zofran) 4 mg IV Q8H PRN PRN Reason: Nausea And Vomiting Oxycodone/Acetaminophen (Percocet 5/325) 1 tab PO Q6H PRN PRN Reason: Pain, Moderate (4-6) Last Admin: 10/16/19 17:39 Dose: 1 tab Documented by: Pantoprazole Sodium (Protonix) 40 mg PO QDAY [facility] Last Admin: 10/17/19 09:36 Dose: 40 mg Documented by: Sodium Chloride (Sodium Chloride Flush Syringe 10 Ml) 10 ml IV BID [facility] Last Admin: 10/17/19 09:37 Dose: 10 ml Documented by: Sodium Chloride (Sodium Chloride Flush Syringe 10 Ml) 10 ml IV PRN PRN PRN Reason: LINE FLUSH Review of Systems Constitutional: no weight loss, no weight gain, no fever, no chills Ears, nose, mouth and throat: no ear pain, no nose pain, no nasal congestion, no mouth pain, no dysphagia Cardiovascular: chest pain, no orthopnea, no palpitations, no rapid/irregular heart beat, no edema, no syncope, no lightheadedness, no shortness of breath, no dyspnea on exertion Respiratory: no cough, no shortness of breath, no dyspnea on exertion Gastrointestinal: no abdominal pain, no nausea, no vomiting, no diarrhea, no constipation Genitourinary Male: no dysuria, no flank pain Musculoskeletal: no muscle weakness, no muscle cramps Integumentary: no rash, no wounds Neurological: no head injury, no paralysis, no weakness, no parathesias, no numbness, no tingling, no seizures, no syncope, no vertigo, no headaches Endocrine: no cold intolerance, no heat intolerance Hematologic/Lymphatic: no easy bruising, no easy bleeding Allergic/Immunologic: no urticaria Physical Examination Last Vital Signs Temp 98.0 F 10/17/19 10:59 Pulse 78 10/17/19 09:36 Resp 20 10/17/19 10:59 BP 132/56 10/17/19 10:59 Pulse Ox 99 10/17/19 10:59 HEENT: Positive: EOMI, Normocephaly, Mucus Membranes Moist Neck: Positive: trachea midline Cardiac: Positive: Reg Rate and Rhythm, S1/S2 Lungs: Positive: clear to auscultation, No Wheeze, Rales, Rhonchi Neuro: Positive: Grossly Intact, Motor Function Intact, Coordination Normal, Sensory Function Intact Abdomen: Positive: Active Bowel Sounds, Ascites. Negative: Tender Skin: Negative: Rash, Suspicious Lesions, Wound Musculoskeletal: No Pain Extremities: Present: upper extr. pulses, lower extr. pulses. Absent: edema Results 10/17/19 04:44 10/17/19 04:44 Cardiac Enzymes 10/16/19 10/17/19 Range/Units 12:07 04:44 AST 62 H 44 H (5-40) units/L Coagulation 10/16/19 Range/Units 12:07 PT 15.8 H (12.2-14.9) Sec. INR 1.24 H (0.87-1.13) APTT 40.4 H (24.2-36.6) Sec. Lipids 10/16/19 Range/Units 12:07 Triglycerides 98 (2-149) mg/dL Cholesterol 88 (50-199) mg/dL HDL Cholesterol 22 L (40-59) mg/dL Cholesterol/HDL Ratio 4.00 % CBC 10/16/19 10/17/19 Range/Units 12:07 04:44 WBC 8.7 7.7 (4.5-11.0) K/mm3 RBC 3.40 L 3.28 L (3.65-5.03) M/mm3 Hgb 8.4 L 8.0 L (11.8-15.2) gm/dl Hct 25.4 L 24.2 L (35.5-45.6) % Plt Count 141 148 (140-440) K/mm3 Lymph # 0.8 L 0.8 L (1.2-5.4) K/mm3 [place] # 0.7 0.5 (0.0-0.8) K/mm3 Eos # 0.0 0.0 (0.0-0.4) K/mm3 Baso # 0.1 0.0 (0.0-0.1) K/mm3 Comprehensive Metabolic Panel 10/16/19 10/17/19 Range/Units 12:07 04:44 Sodium 129 L 131 L (137-145) mmol/L Potassium 4.4 4.7 (3.6-5.0) mmol/L Chloride 89.3 L 91.4 L (98-107) mmol/L Carbon Dioxide 19 L 19 L (22-30) mmol/L BUN 42 H 52 H (9-20) mg/dL Creatinine 7.8 H 9.5 H (0.8-1.5) mg/dL Glucose 106 H 176 H (75-100) mg/dL Calcium 8.9 8.6 (8.4-10.2) mg/dL AST 62 H 44 H (5-40) units/L ALT 15 13 (7-56) units/L Alkaline Phosphatase 102 98 (35-129) units/L Total Protein 8.5 H 8.1 (6.3-8.2) g/dL Albumin 2.7 L 2.7 L (3.9-5) g/dL - Imaging and Cardiology Echo: report reviewed (EF 60-65%; mod MV leaflet calcification; mild MR; mild TR) EKG: report reviewed, image reviewed - EKG Interpretation EKG: no acute changes EKG interpretations - EKG Sinus rhythms and dysrhythmias: sinus rhythm Chamber hypertrophy or enlargement: left ventricular hypertro Assessment and Plan Lexiscan MPI completed 05/2019 - negative for ischemia. Echo completed 05/2019 - EF 60-65%; mod MV leaflet calcification; mild MR; mild TR. Minimal trop elevation appears non-specific at this time in setting of ESRD. Will continue to trend Claudia. F/u ECG. No plan for any additional cardiac work-up at this time. Convert Coreg to Lopressor given hx of COPD. Convert ASA to 81mg. Consider Vascular consult in setting of recently diagnosed IVC thrombus per primary team. Consider GI consult in setting of ascites, liver lesion, HCV, and cirrhosis per primary team. Consider Heme/Onc consult in setting of newly diagnosed HCC - no apparent outpt f/u in [facility] system per primary team. The patient has been seen in conjunction with Dr. Soto, who agrees with the assessment and plan of care. - Patient Problems (1) Chest pain Current Visit: Yes Status: Acute Qualifiers: Chest pain type: unspecified Qualified Code(s): R07.9 - Chest pain, unspecified (2) Elevated troponin Current Visit: Yes Status: Acute (3) ESRD (end stage renal disease) on dialysis Current Visit: Yes Status: Chronic (4) Anemia Current Visit: Yes Status: Acute Qualifiers: Anemia type: due to chronic kidney disease (5) Hyponatremia Current Visit: Yes Status: Acute (6) IVC thrombosis Current Visit: Yes Status: Chronic (7) COPD (chronic obstructive pulmonary disease) Current Visit: Yes Status: Chronic (8) HTN (hypertension) Current Visit: Yes Status: Chronic Qualifiers: Hypertension type: essential hypertension Qualified Code(s): I10 - Essential (primary) hypertension (9) Type 2 diabetes mellitus Current Visit: Yes Status: Chronic Qualifiers: Diabetes mellitus fdc insulin use: without terminal gauger supervisor use (10) Hepatocellular carcinoma Current Visit: Yes Status: Acute (11) Cocaine use Current Visit: Yes Status: Chronic (12) Tobacco use Current Visit: Yes Status: Chronic
[2019-10-17] MEDS ORDERED: ENOXAPARIN 80 MG/0.8 ML INJ SUB-Q SCH (16:30)
--- NOTE | 2019-10-17 16:36 | Discharge Summary ---
Providers - Providers Date of Admission: 10/16/19 13:37 Date of discharge: 10/17/19 Attending physician: NITIN UNDERWOOD 10/16/19 16:48 Consult to Physician [CONS] Routine Comment: Consulting Provider: LENARD VILLATORO Physician Instructions: Reason For Exam: End-stage renal disease 10/17/19 10:07 Consult to Physician [CONS] Routine Comment: Consulting Provider: EDUARDO BURRELL Physician Instructions: Reason For Exam: chest pain Primary care physician: [facility] Hospitalization Condition: Stable Hospital course: Discharge diagnosis: (1) Chest pain, likely GERD no work up per cardiology, cont ppi (2) Elevated troponin/NSTEMI type 2 due to ESRD, chronically elevated (3) Hyponatremia Sodium of 129 . Secondary to moderate volume overload (4) Anemia of CD (5) HTN (hypertension), chronic (6) ESRD (end stage renal disease) on dialysis (7) Asthma, stable (8) Nicotine dependence Patient counseled about stopping smoking (9) Malnutrition Moderate to severe malnutrition Dietitian consult requested (10) Type 2 diabetes mellitus Patient not on any hypoglycemics Blood glucose level 106, diet controlled (11) Liver lesion with IVC thrombus dx on previous admission. Associated with abdominal pain weight loss and nausea. Known history of HCV and liver cirrhosis. on empiric full dose Lovenox for IVC thrombus noted, The patient needs to follow-up with a surgical oncologist, he has been given the information for Dr. Stone at [place] Disposition: [id number] HOME UNDER HOME HL Time spent for discharge: 34 minutes Core Measure Documentation - Palliative Care Palliative Care/ Comfort Measures: Not Applicable - Core Measures Any of the following diagnoses?: history only Exam - Constitutional Vitals: Temp Pulse Resp BP Pulse Ox 99.5 F 78 20 120/69 99 10/17/19 12:20 10/17/19 15:15 10/17/19 13:00 10/17/19 15:15 10/17/19 10:59 Plan Activity: advance as tolerated Weight Bearing Status: Weight Bear as Tolerated Diet: renal Additional Instructions: f/u with Dr. Stone at [place] Follow up with: PRIMARY CAREMD [Primary Care Provider] - 7 Days
--- NOTE | 2019-10-17 16:39 | Consultation ---
History of Present Illness - History of Present Illness 64 year old with medical history signficant for HTN, DM , ESRD on HD TTS admi tted with complaints of chest pain.reports sharp associated shortness of breath , diaphoresis. Has some Nausea, Denies any fevers or chills. Denies any headaches, orthopnea or PND. Denies any orthopnea Or PND. He had dialysis on wednesday . Denies any lower extremity swelling. complains of feeling thirsty. Past History Past Medical History: cancer (liver), COPD, diabetes, hypertension, other (IVC thrombus, asthma, HCV, cirrhosis). denies: acute IN Past Surgical History: Other (L arm AV fistula) Social history: smoking (1 cigarette per day), other (cocaine use). denies: alcohol abuse Medications and Allergies Allergies Allergy/AdvReac Type Severity Reaction Status Date / Time No Known Allergies Allergy Unverified 05/10/18 17:04 Home Medications Medication Instructions Recorded Confirmed Last Taken Type Albuterol INH(or & Nicu Only) 2 puff IH QID PRN 05/17/18 10/16/19 09/01/18 History [ProAir HFA Inhaler] 2 puff Amlodipine Besylate [Norvasc] 10 mg PO QDAY 05/17/18 10/16/19 10/02/19 History Gabapentin 300 mg PO BID #60 capsule 10/05/19 10/16/19 Unknown Rx Pantoprazole [Protonix TAB] 40 mg PO QDAY #30 tablet 10/05/19 10/16/19 Unknown Rx carvediloL [Coreg] 3.125 mg PO BID #60 tablet 10/05/19 10/16/19 Unknown Rx Enoxaparin 80 mg SQ Q24HR #60 syringe 10/17/19 10/16/19 Unknown Rx Active Meds: Active Medications Acetaminophen (Tylenol) 650 mg PO Q4H PRN PRN Reason: Pain MILD(1-3)/Fever >100.5/MAYES Albuterol (Proventil) 2.5 mg IH QIDRT PRN PRN Reason: Shortness Of Breath Amlodipine Besylate (Amlodipine) 10 mg PO QDAY [facility] Last Admin: 10/17/19 09:36 Dose: 10 mg Documented by: Aspirin (Baby Aspirin) 81 mg PO QDAY [facility] Enoxaparin Sodium (Enoxaparin) 80 mg SUB-Q Q24HR [facility] Famotidine (Pepcid) 20 mg PO DAILY [facility] Last Admin: 10/17/19 09:36 Dose: 20 mg Documented by: Gabapentin (Gabapentin) 300 mg PO BID [facility] Last Admin: 10/17/19 09:36 Dose: 300 mg Documented by: Hydromorphone HCl (Dilaudid) 0.5 mg IV Q3H PRN PRN Reason: Pain , Severe (7-10) Metoprolol Tartrate (Metoprolol) 50 mg PO BID [facility] Ondansetron HCl (Zofran) 4 mg IV Q8H PRN PRN Reason: Nausea And Vomiting Oxycodone/Acetaminophen (Percocet 5/325) 1 tab PO Q6H PRN PRN Reason: Pain, Moderate (4-6) Last Admin: 10/16/19 17:39 Dose: 1 tab Documented by: Pantoprazole Sodium (Protonix) 40 mg PO QDAY [facility] Last Admin: 10/17/19 09:36 Dose: 40 mg Documented by: Sodium Chloride (Sodium Chloride Flush Syringe 10 Ml) 10 ml IV BID [facility] Last Admin: 10/17/19 09:37 Dose: 10 ml Documented by: Sodium Chloride (Sodium Chloride Flush Syringe 10 Ml) 10 ml IV PRN PRN PRN Reason: LINE FLUSH Review of Systems Constitutional: no weight loss, no weight gain, no chills Ears, nose, mouth and throat: no deferred, no ear pain, no ear discharge Cardiovascular: no chest pain, no orthopnea, no palpitations Gastrointestinal: no abdominal pain, no nausea, no vomiting Genitourinary Male: no dysuria, no hematuria Musculoskeletal: no neck stiffness, no neck pain Integumentary: no deferred, no rash, no pruritis Neurological: no head injury, no transient paralysis Psychiatric: no anxiety, no memory loss, no change in sleep habits Endocrine: no cold intolerance, no heat intolerance Exam - Vital Signs Vital signs: Vital Signs Temp Pulse Resp BP Pulse Ox 98.5 F 76 22 176/69 99 10/16/19 11:23 10/16/19 11:23 10/16/19 11:23 10/16/19 11:23 10/16/19 11:23 Results - Lab Results 10/17/19 04:44 10/17/19 04:44 Most recent lab results Calcium 8.6 mg/dL (8.4-10.2) 10/17/19 04:44 Assessment and Plan - Patient Problems (1) ESRD (end stage renal disease) on dialysis Current Visit: Yes Status: Chronic Plan to address problem: End Stage renal disease : will intiate Dialysis . Continue TTS Schedule. (2) HTN (hypertension) Current Visit: Yes Status: Chronic Qualifiers: Hypertension type: essential hypertension Qualified Code(s): I10 - Essential (primary) hypertension Plan to address problem: HTN: controlled continue current medications. (3) Type 2 diabetes mellitus Current Visit: Yes Status: Chronic Qualifiers: Diabetes mellitus senior living insulin use: without bed bug exterminator use Plan to address problem: DM type II : continue current medications. (4) HTN (hypertension) Current Visit: No Status: Chronic Qualifiers: Hypertension type: essential hypertension Qualified Code(s): I10 - Essential (primary) hypertension Plan to address problem: HTN: controlled. continue current medications.
[2019-10-17 17:14] VITALS: BP 157/86
[2019-10-17] MEDS ORDERED: METOPROLOL TARTRATE 50 MG TAB PO SCH (22:00)
[2019-10-18] MEDS ORDERED: ENOXAPARIN 100 MG/1 ML INJ SUB-Q SCH (10:00)
[2019-10-18] MEDS ORDERED: ASPIRIN 81 MG TAB CHEW PO SCH (10:00)
== END 2019-10-17 17:10 | disposition home health service (06) ==
LOC: ED 11:19 → 4A 13:37
PROVIDERS: ADMIT Internal Medicine; ATTEND Internal Medicine
DX: R07.89 Other chest pain (principal); I13.2 Hypertensive heart and chronic kidney disease with heart failure and with stage 5 chronic kidney disease, or end stage renal disease; I50.9 Heart failure, unspecified; N18.6 End stage renal disease; E11.22 Type 2 diabetes mellitus with diabetic chronic kidney disease; R74.8 Abnormal levels of other serum enzymes; E87.1 Hypo-osmolality and hyponatremia; D64.9 Anemia, unspecified; J45.909 Unspecified asthma, uncomplicated; E46 Unspecified protein-calorie malnutrition; F17.203 Nicotine dependence unspecified, with withdrawal; Z68.30 Body mass index [BMI] 30.0-30.9, adult; Z99.2 Dependence on renal dialysis; Z23 Encounter for immunization
CPT/HCPCS: 36415; 71045; 80053; 80061; 83036; 84484; 85025; 85610; 85730; 87116; 90471; 90686; 90732; 93005; 93010; 96372; 96374; 99285; G0378; J1644; J1650; J2270

== ENCOUNTER 2019-11-25 17:21 | Inpatient (IN) | payer MEDICAID, MEDICARE ==
--- NOTE | 2019-11-25 18:58 | XRay Report ---
CHEST 1 VIEW INDICATION / CLINICAL INFORMATION: fever, ams. COMPARISON: Chest radiograph 10/16/2019 FINDINGS: SUPPORT DEVICES: None. HEART / MEDIASTINUM: No significant abnormality. LUNGS / PLEURA: Interval development of mild pulmonary vascular congestion and hazy bilateral pulmona ry opacities. No large pleural effusion. No pneumothorax. ADDITIONAL FINDINGS: No significant additional findings. IMPRESSION: 1. Interval development of mild pulmonary vascular congestion and hazy bilateral pulmonary opacities. This is nonspecific and may reflect mild pulmonary edema, though with the provided history of fever, a superimposed infectious etiology is possible. Signer Name: Yulisa Rosario MD Signed: 11/25/2019 6:54 PM Workstation Name: [id number]
[2019-11-25 19:03] LABS: Hematocrit 25.2 % (35.5-45.6); Hemoglobin 7.8 gm/dl (11.8-15.2); Mean Corpuscular HGB Conc 31 % (32-34); Mean Corpuscular Volume 72 fl (84-94); Red Blood Count 3.52 M/mm3 (3.65-5.03)
[2019-11-25] MEDS ORDERED: CEFEPIME/NS 2 GM/100 ML 2 GM/100 ML BAG IV SCH (19:03)
[2019-11-25] MEDS ORDERED: VANCOMYCIN 1,250 MG in SODIUM CHLORIDE 0.9% 250ML 250 ML IV ONE (19:03)
--- NOTE | 2019-11-25 19:05 | Emergency Department Report ---
ED Altered Mental Status HPI - General Chief Complaint: Altered Mental Status Stated Complaint: POSS SEIZURE/FALL Time Seen by Provider: 11/25/19 18:23 Source: patient, EMS, old records reviewed Mode of arrival: Stretcher Limitations: Altered Mental Status - History of Present Illness Initial Comments: 64-year-old male with a past medical history of end-stage renal disease on dialysis, CHF, COPD, diabetes, hepatitis C, liver cirrhosis, and liver lesion with IVC thrombus currently on full dose Lovenox presents to the hospital with alteration in mental status. Patient apparently had his dialysis today as scheduled. He was found unresponsive outside his house by neighbors. Patient is oriented to self and date of only. He is lethargic and falling asleep between his answers and is not oriented to place or year. He denies pain. He has notable abrasions to his left cheek but cannot recall how this happened. - Related Data Home Medications Medication Instructions Recorded Confirmed Last Taken Albuterol INH(or & Nicu Only) 2 puff IH QID PRN 05/17/18 10/16/19 09/01/18 [ProAir HFA Inhaler] 2 puff Amlodipine Besylate [Norvasc] 10 mg PO QDAY 05/17/18 10/16/19 10/02/19 Previous Rx's Medication Instructions Recorded Last Taken Type Gabapentin 300 mg PO BID #60 capsule 10/05/19 Unknown Rx Pantoprazole [Protonix TAB] 40 mg PO QDAY #30 tablet 10/05/19 Unknown Rx carvediloL [Coreg] 3.125 mg PO BID #60 tablet 10/05/19 Unknown Rx Enoxaparin 80 mg SQ Q24HR #60 syringe 10/17/19 Unknown Rx Allergies Allergy/AdvReac Type Severity Reaction Status Date / Time No Known Allergies Allergy Unverified 05/10/18 17:04 ED Review of Systems ROS: Stated complaint: POSS SEIZURE/FALL Other details as noted in HPI Comment: Unobtainable due to pts medical conditions (limit due to pt's condition) ED Past Medical Hx - Past Medical History Previous Medical History?: Yes Hx Hypertension: Yes Hx Congestive Heart Failure: Yes Hx Diabetes: Yes Hx Renal Disease: Yes (HD) Hx Arthritis: Yes Hx Asthma: No Hx COPD: No Additional medical history: Hepatitis C, liver cirrhosis, liver lesion with IVC thrombus - Surgical History Additional Surgical History: LEFT UPPER ARM FISTULA - Social History Smoking Status: Unknown if ever smoked - Medications Home Medications: Home Medications Medication Instructions Recorded Confirmed Last Taken Type Albuterol INH(or & Nicu Only) 2 puff IH QID PRN 05/17/18 10/16/19 09/01/18 History [ProAir HFA Inhaler] 2 puff Amlodipine Besylate [Norvasc] 10 mg PO QDAY 05/17/18 10/16/19 10/02/19 History Gabapentin 300 mg PO BID #60 capsule 10/05/19 10/16/19 Unknown Rx Pantoprazole [Protonix TAB] 40 mg PO QDAY #30 tablet 10/05/19 10/16/19 Unknown Rx carvediloL [Coreg] 3.125 mg PO BID #60 tablet 10/05/19 10/16/19 Unknown Rx Enoxaparin 80 mg SQ Q24HR #60 syringe 10/17/19 10/16/19 Unknown Rx ED Physical Exam - General Limitations: Altered Mental Status - Other Other exam information: General: lethargic Head: abrasion left cheek without jung tenderness Eyes: RAÚL ENT: Moist mucous membranes Neck: Normal appearance, no midline tenderness Chest: diminished b/l breath sounds CV: Regular rate and rhythm Abdomen: Soft, normal bowel sounds, nontender, distended vs obese Extremity: no deformity Neuro: lethargic, slow speech, oriented to self only, follow commands, generalized weakness with equal strength bilaterally Psych: altered ED Course Vital Signs 11/25/19 11/25/19 11/25/19 17:26 17:30 17:39 Temperature 100.3 F H Pulse Rate 81 Respiratory 27 H 20 Rate Blood Pressure O2 Sat by Pulse 95 Oximetry 11/25/19 11/25/19 11/25/19 18:00 18:30 19:00 Temperature Pulse Rate 78 75 74 Respiratory 27 H 23 25 H Rate Blood Pressure 108/64 110/58 119/61 O2 Sat by Pulse 95 94 Oximetry 11/25/19 11/25/19 11/25/19 19:37 19:57 20:00 Temperature 98.1 F Pulse Rate 73 Respiratory 19 Rate Blood Pressure 140/73 134/68 O2 Sat by Pulse 95 Oximetry 11/25/19 11/25/19 11/25/19 20:30 21:00 21:30 Temperature Pulse Rate 72 71 71 Respiratory 19 18 17 Rate Blood Pressure 119/61 142/72 142/72 O2 Sat by Pulse 95 94 92 Oximetry 11/25/19 22:00 Temperature Pulse Rate 70 Respiratory 20 Rate Blood Pressure 147/79 O2 Sat by Pulse 96 Oximetry - Consultations Consultation #1: 11/25/19 21:14 case d/w Dr Becerra, will manage renal issues inhouse. - Lab Data Result diagrams: 11/25/19 17:32 11/25/19 18:37 Lab Results 11/25/19 11/25/19 11/25/19 Range/Units 17:32 18:37 18:37 WBC 5.5 (4.5-11.0) K/mm3 RBC 3.52 L (3.65-5.03) M/mm3 Hgb 7.8 L (11.8-15.2) gm/dl Hct 25.2 L (35.5-45.6) % MCV 72 L (84-94) fl MCH 22 L (28-32) pg MCHC 31 L (32-34) % RDW 23.7 H (13.2-15.2) % Plt Count 112 L (140-440) K/mm3 Add Manual Diff Complete Total Counted 100 Seg Neuts % (Manual) 85.0 H (40.0-70.0) % Band Neutrophils % 0 % Lymphocytes % (Manual) 10.0 L (13.4-35.0) % Reactive Lymphs % (Man) 0 % Monocytes % (Manual) 5.0 (0.0-7.3) % Eosinophils % (Manual) 0 (0.0-4.3) % Basophils % (Manual) 0 (0.0-1.8) % Metamyelocytes % 0 % Myelocytes % 0 % Promyelocytes % 0 % Blast Cells % 0 % Nucleated RBC % 1.0 H (0.0-0.9) % Seg Neutrophils # Man 4.7 (1.8-7.7) K/mm3 Band Neutrophils # 0.0 K/mm3 Lymphocytes # (Manual) 0.6 L (1.2-5.4) K/mm3 Abs React Lymphs (Man) 0.0 K/mm3 Monocytes # (Manual) 0.3 (0.0-0.8) K/mm3 Eosinophils # (Manual) 0.0 (0.0-0.4) K/mm3 Basophils # (Manual) 0.0 (0.0-0.1) K/mm3 Metamyelocytes # 0.0 K/mm3 Myelocytes # 0.0 K/mm3 Promyelocytes # 0.0 K/mm3 Blast Cells # 0.0 K/mm3 WBC Morphology Not Reportable Hypersegmented Neuts Not Reportable Hyposegmented Neuts Not Reportable Hypogranular Neuts Not Reportable Smudge Cells Not Reportable Toxic Granulation Not Reportable Toxic Vacuolation Not Reportable Dohle Bodies Not Reportable Pelger-Huet Anomaly Not Reportable Cristina Rods Not Reportable Platelet Estimate Consistent w auto Clumped Platelets Not Reportable Plt Clumps, EDTA Not Reportable Large Platelets Not Reportable Giant Platelets Not Reportable Platelet Satelliting Not Reportable Plt Morphology Comment Not Reportable RBC Morphology Not Reportable Dimorphic RBCs Not Reportable Polychromasia Few Hypochromasia Few Poikilocytosis Not Reportable Anisocytosis 2+ Microcytosis Few Macrocytosis 1+ Spherocytes Not Reportable Pappenheimer Bodies Not Reportable Sickle Cells Not Reportable Target Cells Few Tear Drop Cells Not Reportable Ovalocytes Few Helmet Cells Not Reportable Mccrary-Thynedale Bodies Not Reportable [place] Rings Not Reportable Shan Cells Not Reportable Bite Cells Not Reportable Crenated Cell Not Reportable Elliptocytes Not Reportable Acanthocytes (Spur) Not Reportable Rouleaux Not Reportable Hemoglobin C Crystals Not Reportable Schistocytes Rare Malaria parasites Not Reportable Babatunde Bodies Not Reportable Hem Pathologist Commnt No PT (12.2-14.9) Sec. INR (0.87-1.13) APTT (24.2-36.6) Sec. VBG pH (7.320-7.420) Sodium 133 L (137-145) mmol/L Potassium 4.0 (3.6-5.0) mmol/L Chloride 92.2 L (98-107) mmol/L Carbon Dioxide 16 L (22-30) mmol/L Anion Gap 29 mmol/L BUN 48 H (9-20) mg/dL Creatinine 10.0 H (0.8-1.5) mg/dL Estimated GFR 6 ml/min BUN/Creatinine Ratio 5 % Glucose 132 H (75-100) mg/dL Lactic Acid 5.10 H* (0.7-2.0) mmol/L Calcium 8.7 (8.4-10.2) mg/dL Total Bilirubin 1.10 (0.1-1.2) mg/dL AST 89 H (5-40) units/L ALT 18 (7-56) units/L Alkaline Phosphatase 146 H (35-129) units/L Ammonia (25-60) umol/L Total Protein 8.0 (6.3-8.2) g/dL Albumin 2.5 L (3.9-5) g/dL Albumin/Globulin Ratio 0.5 % 11/25/19 11/25/19 11/25/19 Range/Units 18:37 18:37 18:37 WBC (4.5-11.0) K/mm3 RBC (3.65-5.03) M/mm3 Hgb (11.8-15.2) gm/dl Hct (35.5-45.6) % MCV (84-94) fl MCH (28-32) pg MCHC (32-34) % RDW (13.2-15.2) % Plt Count (140-440) K/mm3 Add Manual Diff Total Counted Seg Neuts % (Manual) (40.0-70.0) % Band Neutrophils % % Lymphocytes % (Manual) (13.4-35.0) % Reactive Lymphs % (Man) % Monocytes % (Manual) (0.0-7.3) % Eosinophils % (Manual) (0.0-4.3) % Basophils % (Manual) (0.0-1.8) % Metamyelocytes % % Myelocytes % % Promyelocytes % % Blast Cells % % Nucleated RBC % (0.0-0.9) % Seg Neutrophils # Man (1.8-7.7) K/mm3 Band Neutrophils # K/mm3 Lymphocytes # (Manual) (1.2-5.4) K/mm3 Abs React Lymphs (Man) K/mm3 Monocytes # (Manual) (0.0-0.8) K/mm3 Eosinophils # (Manual) (0.0-0.4) K/mm3 Basophils # (Manual) (0.0-0.1) K/mm3 Metamyelocytes # K/mm3 Myelocytes # K/mm3 Promyelocytes # K/mm3 Blast Cells # K/mm3 WBC Morphology Hypersegmented Neuts Hyposegmented Neuts Hypogranular Neuts Smudge Cells Toxic Granulation Toxic Vacuolation Dohle Bodies Pelger-Huet Anomaly Cristina Rods Platelet Estimate Clumped Platelets Plt Clumps, EDTA Large Platelets Giant Platelets Platelet Satelliting Plt Morphology Comment RBC Morphology Dimorphic RBCs Polychromasia Hypochromasia Poikilocytosis Anisocytosis Microcytosis Macrocytosis Spherocytes Pappenheimer Bodies Sickle Cells Target Cells Tear Drop Cells Ovalocytes Helmet Cells Mccrary-Thynedale Bodies [place] Rings Solo Cells Bite Cells Crenated Cell Elliptocytes Acanthocytes (Spur) Rouleaux Hemoglobin C Crystals Schistocytes Malaria parasites Babatunde Bodies Hem Pathologist Commnt PT 17.5 H (12.2-14.9) Sec. INR 1.41 H (0.87-1.13) APTT 34.5 (24.2-36.6) Sec. VBG pH 7.446 H (7.320-7.420) Sodium (137-145) mmol/L Potassium (3.6-5.0) mmol/L Chloride (98-107) mmol/L Carbon Dioxide (22-30) mmol/L Anion Gap mmol/L BUN (9-20) mg/dL Creatinine (0.8-1.5) mg/dL Estimated GFR ml/min BUN/Creatinine Ratio % Glucose (75-100) mg/dL Lactic Acid (0.7-2.0) mmol/L Calcium (8.4-10.2) mg/dL Total Bilirubin (0.1-1.2) mg/dL AST (5-40) units/L ALT (7-56) units/L Alkaline Phosphatase (35-129) units/L Ammonia 117.0 H (25-60) umol/L Total Protein (6.3-8.2) g/dL Albumin (3.9-5) g/dL Albumin/Globulin Ratio % /28/20 Range/Units 20:50 WBC (4.5-11.0) K/mm3 RBC (3.65-5.03) M/mm3 Hgb (11.8-15.2) gm/dl Hct (35.5-45.6) % MCV (84-94) fl MCH (28-32) pg MCHC (32-34) % RDW (13.2-15.2) % Plt Count (140-440) K/mm3 Add Manual Diff Total Counted Seg Neuts % (Manual) (40.0-70.0) % Band Neutrophils % % Lymphocytes % (Manual) (13.4-35.0) % Reactive Lymphs % (Man) % Monocytes % (Manual) (0.0-7.3) % Eosinophils % (Manual) (0.0-4.3) % Basophils % (Manual) (0.0-1.8) % Metamyelocytes % % Myelocytes % % Promyelocytes % % Blast Cells % % Nucleated RBC % (0.0-0.9) % Seg Neutrophils # Man (1.8-7.7) K/mm3 Band Neutrophils # K/mm3 Lymphocytes # (Manual) (1.2-5.4) K/mm3 Abs React Lymphs (Man) K/mm3 Monocytes # (Manual) (0.0-0.8) K/mm3 Eosinophils # (Manual) (0.0-0.4) K/mm3 Basophils # (Manual) (0.0-0.1) K/mm3 Metamyelocytes # K/mm3 Myelocytes # K/mm3 Promyelocytes # K/mm3 Blast Cells # K/mm3 WBC Morphology Hypersegmented Neuts Hyposegmented Neuts Hypogranular Neuts Smudge Cells Toxic Granulation Toxic Vacuolation Dohle Bodies Pelger-Huet Anomaly Cristina Rods Platelet Estimate Clumped Platelets Plt Clumps, EDTA Large Platelets Giant Platelets Platelet Satelliting Plt Morphology Comment RBC Morphology Dimorphic RBCs Polychromasia Hypochromasia Poikilocytosis Anisocytosis Microcytosis Macrocytosis Spherocytes Pappenheimer Bodies Sickle Cells Target Cells Tear Drop Cells Ovalocytes Helmet Cells Mccrary-Thynedale Bodies [place] Rings Shan Cells Bite Cells Crenated Cell Elliptocytes Acanthocytes (Spur) Rouleaux Hemoglobin C Crystals Schistocytes Malaria parasites Babatunde Bodies Hem Pathologist Commnt PT (12.2-14.9) Sec. INR (0.87-1.13) APTT (24.2-36.6) Sec. VBG pH (7.320-7.420) Sodium (137-145) mmol/L Potassium (3.6-5.0) mmol/L Chloride (98-107) mmol/L Carbon Dioxide (22-30) mmol/L Anion Gap mmol/L BUN (9-20) mg/dL Creatinine (0.8-1.5) mg/dL Estimated GFR ml/min BUN/Creatinine Ratio % Glucose (75-100) mg/dL Lactic Acid 4.20 H* (0.7-2.0) mmol/L Calcium (8.4-10.2) mg/dL Total Bilirubin (0.1-1.2) mg/dL AST (5-40) units/L ALT (7-56) units/L Alkaline Phosphatase (35-129) units/L Ammonia (25-60) umol/L Total Protein (6.3-8.2) g/dL Albumin (3.9-5) g/dL Albumin/Globulin Ratio % - EKG Data -: EKG Interpreted by Ms EKG shows normal: sinus rhythm, ST-T waves (no stmei) Rate: normal (80) - Radiology Data Radiology results: report reviewed CHEST 1 VIEW INDICATION / CLINICAL INFORMATION: fever, ams. COMPARISON: Chest ra diograph 10/16/2019 FINDINGS: SUPPORT DEVICES: None. HEART / MEDIASTINUM: No significant abnormality. LUNGS / PLEURA: Interval development of mild pulmonary vascular congestion and hazy bilateral pulmonary opacities. No large pleural effusion. No pneumothorax. ADDITIONAL FINDINGS: No significant additional findings. IMPRESSION: 1. Interval development of mild pulmonary vascular congestion and hazy bilateral pulmonary opacities. This is nonspecific and may reflect mild pulmonary edema, though with the provided history of fever, a superimposed infectious etiology is possible. CT head/brain wo con INDICATION / CLINICAL INFORMATION: ams, head injuru. TECHNIQUE: All CT scans at this location are performed using CT dose reduction for ALARA by means of automated exposure control. COMPARISON: 10/03/2019 FINDINGS: Ventricle size is normal. No mass or mass effect is seen. There is no evidence of intracranial hemorrhage. No obvious area of infarction is identified. Visualized paranasal sinuses are clear IMPRESSION: No acute findings or interval change from 10/03/2019 CT cervical spine wo con INDICATION / CLINICAL INFORMATION: fall, head injury. TECHNIQUE: All CT scans at this location are performed using CT dose reduction for ALARA by means of automated exposure control. COMPARISON: None available. FINDINGS: The prevertebral soft tissues are normal in thickness. No fracture is identified. Normal vertebral alignment is seen. Schmorl nodes are seen at C5-6 and C6-7. Spinous processes are normal. IMPRESSION: No evidence of a fracture. CT facial bones wo con INDICATION / CLINICAL INFORMATION: left cheek fall injury. TECHNIQUE: All CT scans at this location are performed using CT dose reduction for ALARA by means of automated exposure control. COMPARISON: None available. FINDINGS: The paranasal sinuses are clear. The nasal septum is slightly deviated to left. No fracture is seen in the nasal bone or nasal supporting bones. No maxillary sinus or orbital floor fracture is seen. The zyg omatic arches are normal. IMPRESSION: Negative CT of the facial bones CT chest wo con INDICATION / CLINICAL INFORMATION: b/l infiltrates vs edema. TECHNIQUE: All CT scans at this location are performed using CT dose reduction for ALARA by means of automated exposure control. COMPARISON: None available. FINDINGS: Several noncalcified nodules are present in both lungs measuring up to 1 cm in diameter. Interstitial markings are prominent. No enlarged mediastinal, hilar or axillary lymph nodes are present. A small amount of ascites is seen in the abdomen. The adrenal glands are normal. The liver has a cirrhotic configuration there may be splenic varices present no significant skeletal abnormality is seen. IMPRESSION: 1. Several noncalcified nodules in both lungs measuring up to 1 cm in diameter worrisome for metastatic disease 2. Cirrhotic configuration to the liver with possible splenic varices 3. Small amount of ascites in the abdomen - Medical Decision Making pt has an 100.3 temp with possible fever therefore sepsis protocol initiated ? infiltrates vs edema on cxr: vanc and cefipime ordered. However ct chest n oncontrast does not reveal b/l pneumonia. prominent interstial markings noted and other incidental findings. therefore I do not have a definitive diagnosis of pneumonia. AMS likely due to hepatic encephalopathy COVID19 form filled out and submitted - Differential Diagnosis enchalopathy, sepsis, intracranial hemorrhage, Critical Care Time: No Critical care attestation.: If time is entered above; I have spent that time in minutes in the direct care of this critically ill patient, excluding procedure time. ED Disposition Clinical Impression: Hepatic encephalopathy, Abnormal CT scan, lung, Altered mental status, ESRD on dialysis, Fever, Diabetes Disposition: OP ADMIT IP TO THIS HOSP Is pt being admited?: Yes Condition: Stable Referrals: PRIMARY CARE, [Primary Care Provider] - 3-5 Days Time of Disposition: 21:58 (Dr Martinez/hosp)
[2019-11-25 19:06] LABS: Red Cell Distribution Width 23.7 % (13.2-15.2)
[2019-11-25 19:14] LABS: INR 1.41 (0.87-1.13); Partial Thromboplastin Time 34.5 Sec. (24.2-36.6)
[2019-11-25 19:26] LABS: Albumin 2.5 g/dL (3.9-5); Calcium 8.7 mg/dL (8.4-10.2)
[2019-11-25] MEDS ORDERED: CEFEPIME/NS 2 GM/100 ML 2 GM/100 ML BAG IV ONE ×2 (19:30→22:29)
[2019-11-25] MEDS ORDERED: SODIUM CHLORIDE 0.9% 500 ML 500 ML IV ONE ×2 (19:34→21:47)
[2019-11-25] MEDS ORDERED: LACTULOSE 20 GM/30 ML ORAL LIQD PO ONE (19:34)
--- NOTE | 2019-11-25 19:45 | Cat Scan Report ---
CT head/brain wo con INDICATION / CLINICAL INFORMATION: ams, head injuru. TECHNIQUE: All CT scans at this location are performed using CT dose reduction for ALARA by means of automated e xposure control. COMPARISON: 10/03/2019 FINDINGS: Ventricle size is normal. No mass or mass effect is seen. There is no evidence of intracranial hemorr max. No obvious area of infarction is identified. Visualized paranasal sinuses are clear IMPRESSION: No acute findings or interval change from 10/03/2019 Signer Name: Cesar Reyes MD FACR Signed: 11/25/2019 7:41 PM Workstation Name: [id number]
[2019-11-25 19:49] LABS: Basophils % (Manual) 0 % (0.0-1.8); Eosinophils % (Manual) 0 % (0.0-4.3); Total Cells Counted 100
[2019-11-25 19:50] LABS: Anisocytosis 2+; Macrocytosis 1+
[2019-11-25 19:51] LABS: Hypochromasia Few; Ovalocytes Few; Platelet Estimate Consistent w Auto; Schistocytes Rare; Target Cells Few
--- NOTE | 2019-11-25 19:55 | Cat Scan Report ---
CT facial bones wo con INDICATION / CLINICAL INFORMATION: left cheek fall injury. TECHNIQUE: All CT scans at this location are performed using CT dose reduction for ALARA by means of automated e xposure control. COMPARISON: None available. FINDINGS: The paranasal sinuses are clear. The nasal septum is slightly deviated to left. No fracture is seen i n the nasal bone or nasal supporting bones. No maxillary sinus or orbital floor fracture is seen. The zygomatic arches are normal. IMPRESSION: Negative CT of the facial bones Signer Name: Cesar Reyes MD FACR Signed: 11/25/2019 7:50 PM Workstation Name: [id number]
--- NOTE | 2019-11-25 19:57 | Cat Scan Report ---
CT cervical spine wo con INDICATION / CLINICAL INFORMATION: fall, head injury. TECHNIQUE: All CT scans at this location are performed using CT dose reduction for ALARA by means of automated e xposure control. COMPARISON: None available. FINDINGS: The prevertebral soft tissues are normal in thickness. No fracture is identified. Normal vertebral al ignment is seen. Schmorl nodes are seen at C5-6 and C6-7. Spinous processes are normal. IMPRESSION: No evidence of a fracture. Signer Name: Cesar Reyes MD FACR Signed: 11/25/2019 7:52 PM Workstation Name: [id number]
[2019-11-25] MEDS ORDERED: VANCOMYCIN PHARMACY TO DOSE IV SCH (20:00)
--- NOTE | 2019-11-25 20:02 | Cat Scan Report ---
CT chest wo con INDICATION / CLINICAL INFORMATION: b/l infiltrates vs edema. TECHNIQUE: All CT scans at this location are performed using CT dose reduction for ALARA by means of automated e xposure control. COMPARISON: None available. FINDINGS: Several noncalcified nodules are present in both lungs measuring up to 1 cm in diameter. Interstitial markings are prominent. No enlarged mediastinal, hilar or axillary lymph nodes are present. A small amount of ascites is seen in the abdomen. The adrenal glands are normal. The liver has a cirrhotic co nfiguration there may be splenic varices present no significant skeletal abnormality is seen. IMPRESSION: 1. Several noncalcified nodules in both lungs measuring up to 1 cm in diameter worrisome for metastat ic disease 2. Cirrhotic configuration to the liver with possible splenic varices 3. Small amount of ascites in the abdomen Signer Name: Cesar Reyes MD FACR Signed: 11/25/2019 7:58 PM Workstation Name: [id number]
[2019-11-25 20:43] LABS: Platelet Count 112 K/mm3 (140-440)
--- NOTE | 2019-11-25 23:11 | History and Physical Report ---
History of Present Illness History of present illness: 54-year-old man with a history of hypertension, diabetes, end-stage renal disease on dialysis, CHF, cirrhosis, hepatitis C, liver mass concerning for hepatocellular carcinoma, IVC thrombus was brought to the emergency room for evaluation. History is per the charge, he is unable to give a history. Patient was found with decreased responsiveness by the neighbor. Patient was found to have a liver mass in September, given his history hepatocellular carcinoma was a concern, he was evaluated by GI and he was told for follow-up at a [facility], unclear if he followed up. Status post cefepime and Vanco in the ER review of system is unobtainable PAST MEDICAL HISTORY: hypertension, diabetes, end-stage renal disease on dialysis, CHF, cirrhosis, hepatitis C PAST SURGICAL HISTORY: Unknown SOCIAL HISTORY: Unknown FAMILY HISTORY: Unknown Medications and Allergies Allergies Allergy/AdvReac Type Severity Reaction Status Date / Time No Known Allergies Allergy Unverified 05/10/18 17:04 Home Medications Medication Instructions Recorded Confirmed Last Taken Type Albuterol INH(or & Nicu Only) 2 puff IH QID PRN 05/17/18 11/26/19 09/01/18 History [ProAir HFA Inhaler] 2 puff Amlodipine Besylate [Norvasc] 10 mg PO QDAY 05/17/18 11/26/19 10/02/19 History Gabapentin 300 mg PO BID #60 capsule 10/05/19 11/26/19 Unknown Rx Pantoprazole [Protonix TAB] 40 mg PO QDAY #30 tablet 10/05/19 11/26/19 Unknown Rx carvediloL [Coreg] 3.125 mg PO BID #60 tablet 10/05/19 11/26/19 Unknown Rx Enoxaparin 80 mg SQ Q24HR #60 syringe 10/17/19 11/26/19 Unknown Rx Active Meds: Active Medications Cefepime HCl (Cefepime/Ns 1 Gm/100 Ml) 1 gm in 100 mls @ 200 mls/hr IV Q24H KERRIE Exam - Physical Exam Narrative exam: Gen. appearance: Patient lying in bed, no apparent distress HEENT: Normocephalic, bruise on the left cheek, pupils equally round and reactive to light, extraocular movement intact, and no sclericterus,. No JVD or thyromegaly or nodule,neck supple, no carotid bruit ,mucous membranes moist, difficult to examine oral cavity Heart: S1, S2, regular rate and rhythm Lungs: Clear bilaterally, breathing comfortable Abdomen: Positive bowel sounds, nontender, nondistended, no organomegaly Extremity: no edema, cyanosis, clubbing Skin: No rash, nodules, warm, dry Neuro: Oriented to self, difficult to assess - Constitutional Vitals: Temp Pulse Resp BP Pulse Ox 98.1 F 70 20 147/79 96 11/25/19 19:57 11/25/19 22:00 11/25/19 22:00 11/25/19 22:00 11/25/19 22:00 Results - Labs CBC & Chem 7: 11/25/19 17:32 11/25/19 18:37 Labs: Abnormal lab results 11/25/19 11/25/19 11/25/19 Range/Units 17:32 18:37 18:37 RBC 3.52 L (3.65-5.03) M/mm3 Hgb 7.8 L (11.8-15.2) gm/dl Hct 25.2 L (35.5-45.6) % MCV 72 L (84-94) fl MCH 22 L (28-32) pg MCHC 31 L (32-34) % RDW 23.7 H (13.2-15.2) % Plt Count 112 L (140-440) K/mm3 Seg Neuts % (Manual) 85.0 H (40.0-70.0) % Lymphocytes % (Manual) 10.0 L (13.4-35.0) % Nucleated RBC % 1.0 H (0.0-0.9) % Lymphocytes # (Manual) 0.6 L (1.2-5.4) K/mm3 PT (12.2-14.9) Sec. INR (0.87-1.13) VBG pH (7.320-7.420) Sodium 133 L (137-145) mmol/L Chloride 92.2 L (98-107) mmol/L Carbon Dioxide 16 L (22-30) mmol/L BUN 48 H (9-20) mg/dL Creatinine 10.0 H (0.8-1.5) mg/dL Glucose 132 H (75-100) mg/dL Lactic Acid 5.10 H* (0.7-2.0) mmol/L AST 89 H (5-40) units/L Alkaline Phosphatase 146 H (35-129) units/L Ammonia (25-60) umol/L Albumin 2.5 L (3.9-5) g/dL 11/25/19 11/25/19 11/25/19 Range/Units 18:37 18:37 18:37 RBC (3.65-5.03) M/mm3 Hgb (11.8-15.2) gm/dl Hct (35.5-45.6) % MCV (84-94) fl MCH (28-32) pg MCHC (32-34) % RDW (13.2-15.2) % Plt Count (140-440) K/mm3 Seg Neuts % (Manual) (40.0-70.0) % Lymphocytes % (Manual) (13.4-35.0) % Nucleated RBC % (0.0-0.9) % Lymphocytes # (Manual) (1.2-5.4) K/mm3 PT 17.5 H (12.2-14.9) Sec. INR 1.41 H (0.87-1.13) VBG pH 7.446 H (7.320-7.420) Sodium (137-145) mmol/L Chloride (98-107) mmol/L Carbon Dioxide (22-30) mmol/L BUN (9-20) mg/dL Creatinine (0.8-1.5) mg/dL Glucose (75-100) mg/dL Lactic Acid (0.7-2.0) mmol/L AST (5-40) units/L Alkaline Phosphatase (35-129) units/L Ammonia 117.0 H (25-60) umol/L Albumin (3.9-5) g/dL 11/25/19 Range/Units 20:50 RBC (3.65-5.03) M/mm3 Hgb (11.8-15.2) gm/dl Hct (35.5-45.6) % MCV (84-94) fl MCH (28-32) pg MCHC (32-34) % RDW (13.2-15.2) % Plt Count (140-440) K/mm3 Seg Neuts % (Manual) (40.0-70.0) % Lymphocytes % (Manual) (13.4-35.0) % Nucleated RBC % (0.0-0.9) % Lymphocytes # (Manual) (1.2-5.4) K/mm3 PT (12.2-14.9) Sec. INR (0.87-1.13) VBG pH (7.320-7.420) Sodium (137-145) mmol/L Chloride (98-107) mmol/L Carbon Dioxide (22-30) mmol/L BUN (9-20) mg/dL Creatinine (0.8-1.5) mg/dL Glucose (75-100) mg/dL Lactic Acid 4.20 H* (0.7-2.0) mmol/L AST (5-40) units/L Alkaline Phosphatase (35-129) units/L Ammonia (25-60) umol/L Albumin (3.9-5) g/dL - Imaging and Cardiology CT scan - chest: report reviewed CT Scan - head: report reviewed Assessment and Plan CT face, spine reviewed Assessment Hepatic encephalopathy Continue lactulose, prophylactic antibiotic Obtain cultures, check ammonia level, cardiac enzyme Fever COVID forms were filled out Placed on droplet, contact isolation Consult ID Nodules in lung concerning for metastasis/liver mass concerning for hepatocellular carcinoma Consult oncology Patient was given referral to follow-up with surgical oncology at [place] in September Anemia/thrombocytopenia/IVC thrombus On last discharge he was supposed to be on full dose Lovenox Will hold Lovenox for now defer to oncology for continuation given anemia and thrombocytopenia End-stage renal disease on dialysis Consult renal for dialysis Hypertension Continue outpatient medications Diabetes Check fingersticks, hold insulin for now DVT prophylaxis
[2019-11-25] MEDS ORDERED: ONDANSETRON 4 MG/2 ML INJ IV PRN (23:45)
[2019-11-25] MEDS ORDERED: DEXTROSE 50% IN WATER (25GM) 50 ML SYRINGE IV PRN (23:45)
[2019-11-26] MEDS: LACTULOSE 20 GM/30 ML ORAL LIQD PO SCH ×4 (01:44→21:50)
[2019-11-26 07:39] LABS: Hematocrit 26.2 % (35.5-45.6); Hemoglobin 7.9 gm/dl (11.8-15.2); Mean Corpuscular HGB Conc 30 % (32-34); Mean Corpuscular Volume 73 fl (84-94); Red Blood Count 3.58 M/mm3 (3.65-5.03)
[2019-11-26 07:46] LABS: Red Cell Distribution Width 23.8 % (13.2-15.2)
[2019-11-26 07:48] LABS: Creatine Kinase MB 4.3 ng/mL (0.0-4.0)
[2019-11-26 07:49] LABS: Calcium 8.7 mg/dL (8.4-10.2)
[2019-11-26 08:05] LABS: Chol/HDL Ratio 7.58 %
[2019-11-26 09:12] LABS: Eosinophils % (Auto) 1.3 % (0.0-4.3); Lymphocytes # (Auto) 0.7 K/mm3 (1.2-5.4); Lymphocytes % (Auto) 14.1 % (13.4-35.0); Monocytes % (Auto) 10.2 % (0.0-7.3); Platelet Count 114 K/mm3 (140-440)
[2019-11-26 09:13] LABS: Basophils # (Auto) 0.1 K/mm3 (0.0-0.1); Eosinophils # (Auto) 0.1 K/mm3 (0.0-0.4); Monocytes # (Auto) 0.5 K/mm3 (0.0-0.8)
--- NOTE | 2019-11-26 09:53 | Hem/Onc Consultation ---
History of Present Illness - Reason for Consult Consult date: 11/26/19 HCC and anemia Requesting physician: ZARIA GILBERT - History of Present Illness 64-year-old man with a history of hypertension, diabetes, end-stage renal disease on dialysis, CHF, cirrhosis, hepatitis C, liver mass concerning for hepatocellular carcinoma, IVC thrombus was brought to the emergency room for evaluation. As per notes - patient was found with decreased responsiveness by the neighbor. Patient was found to have a liver mass in September, given his history hepatocellular carcinoma was a concern, he was evaluated by GI and he was told for follow-up at a [facility], unclear if he followed up. pts AFP was 2000 at [facility] and 3000 in clinic pt was given Lenvima at a lower dose - as pt in [facility] Past History Past Medical History: other ( hypertension, diabetes, end-stage renal disease on dialysis, CHF, cirrhosis, hepatitis C, liver mass concerning for hepatocellular carcinoma) Medications and Allergies Allergies Allergy/AdvReac Type Severity Reaction Status Date / Time No Known Allergies Allergy Unverified 05/10/18 17:04 Home Medications Medication Instructions Recorded Confirmed Last Taken Type Albuterol INH(or & Nicu Only) 2 puff IH QID PRN 05/17/18 11/26/19 09/01/18 History [ProAir HFA Inhaler] 2 puff Amlodipine Besylate [Norvasc] 10 mg PO QDAY 05/17/18 11/26/19 10/02/19 History Gabapentin 300 mg PO BID #60 capsule 10/05/19 11/26/19 Unknown Rx Pantoprazole [Protonix TAB] 40 mg PO QDAY #30 tablet 10/05/19 11/26/19 Unknown Rx carvediloL [Coreg] 3.125 mg PO BID #60 tablet 10/05/19 11/26/19 Unknown Rx Enoxaparin 80 mg SQ Q24HR #60 syringe 10/17/19 11/26/19 Unknown Rx Active Meds: Active Medications Acetaminophen (Tylenol) 650 mg PO Q4H PRN PRN Reason: Pain MILD(1-3)/Fever >100.5/MAYES Dextrose (D50w (25gm) Syringe) 50 ml IV Q30MIN PRN; Protocol PRN Reason: Hypoglycemia Cefepime HCl (Cefepime/Ns 1 Gm/100 Ml) 1 gm in 100 mls @ 200 mls/hr IV Q24H [facility] Lactulose (Cephulac) 20 gm PO Q6HR KERRIE Last Admin: 11/26/19 05:52 Dose: 20 gm Documented by: Ondansetron HCl (Zofran) 4 mg IV Q8H PRN PRN Reason: Nausea And Vomiting Sodium Chloride (Sodium Chloride Flush Syringe 10 Ml) 10 ml IV BID KERREI Sodium Chloride (Sodium Chloride Flush Syringe 10 Ml) 10 ml IV PRN PRN PRN Reason: LINE FLUSH Review of Systems ROS unobtainable: due to mental status (as per notes) Exam - Exam Narrative Exam: reviewed other MDs notes - Constitutional Vitals: Last Vital Signs Temp 98.2 F 11/26/19 05:33 Pulse 69 11/26/19 05:33 Resp 20 11/26/19 05:33 BP 138/72 11/26/19 05:33 Pulse Ox 95 11/26/19 09:43 Results - Labs lab Results: Laboratory Results - last 24 hr 11/25/19 11/25/19 11/25/19 17:32 18:37 18:37 WBC 5.5 RBC 3.52 L Hgb 7.8 L Hct 25.2 L MCV 72 L MCH 22 L MCHC 31 L RDW 23.7 H Plt Count 112 L Lymph % (Auto) [place] % (Auto) Eos % (Auto) Baso % (Auto) Lymph # [place] # Eos # Baso # Add Manual Diff Complete Total Counted 100 Seg Neutrophils % Seg Neuts % (Manual) 85.0 H Band Neutrophils % 0 Lymphocytes % (Manual) 10.0 L Reactive Lymphs % (Man) 0 Monocytes % (Manual) 5.0 Eosinophils % (Manual) 0 Basophils % (Manual) 0 Metamyelocytes % 0 Myelocytes % 0 Promyelocytes % 0 Blast Cells % 0 Nucleated RBC % 1.0 H Seg Neutrophils # Seg Neutrophils # Man 4.7 Band Neutrophils # 0.0 Lymphocytes # (Manual) 0.6 L Abs React Lymphs (Man) 0.0 Monocytes # (Manual) 0.3 Eosinophils # (Manual) 0.0 Basophils # (Manual) 0.0 Metamyelocytes # 0.0 Myelocytes # 0.0 Promyelocytes # 0.0 Blast Cells # 0.0 WBC Morphology Not Reportable Hypersegmented Neuts Not Reportable Hyposegmented Neuts Not Reportable Hypogranular Neuts Not Reportable Smudge Cells Not Reportable Toxic Granulation Not Reportable Toxic Vacuolation Not Reportable Dohle Bodies Not Reportable Pelger-Huet Anomaly Not Reportable Cristina Rods Not Reportable Platelet Estimate Consistent w auto Clumped Platelets Not Reportable Plt Clumps, EDTA Not Reportable Large Platelets Not Reportable Giant Platelets Not Reportable Platelet Satelliting Not Reportable Plt Morphology Comment Not Reportable RBC Morphology Not Reportable Dimorphic RBCs Not Reportable Polychromasia Few Hypochromasia Few Poikilocytosis Not Reportable Anisocytosis 2+ Microcytosis Few Macrocytosis 1+ Spherocytes Not Reportable Pappenheimer Bodies Not Reportable Sickle Cells Not Reportable Target Cells Few Tear Drop Cells Not Reportable Ovalocytes Few Helmet Cells Not Reportable Mccrary[place] Bodies Not Reportable [place] Rings Not Reportable Vista Cells Not Reportable Bite Cells Not Reportable Crenated Cell Not Reportable Elliptocytes Not Reportable Acanthocytes (Spur) Not Reportable Rouleaux Not Reportable Hemoglobin C Crystals Not Reportable Schistocytes Rare Malaria parasites Not Reportable Babatunde Bodies Not Reportable Hem Pathologist Commnt No PT INR APTT VBG pH Sodium 133 L Potassium 4.0 Chloride 92.2 L Carbon Dioxide 16 L Anion Gap 29 BUN 48 H Creatinine 10.0 H Estimated GFR 6 BUN/Creatinine Ratio 5 Glucose 132 H Lactic Acid 5.10 H* Calcium 8.7 Total Bilirubin 1.10 AST 89 H ALT 18 Alkaline Phosphatase 146 H Ammonia Total Creatine Kinase CK-MB (CK-2) CK-MB (CK-2) Rel Index Troponin T Total Protein 8.0 Albumin 2.5 L Albumin/Globulin Ratio 0.5 Triglycerides Cholesterol LDL Cholesterol Direct HDL Cholesterol Cholesterol/HDL Ratio 11/25/19 11/25/19 11/25/19 18:37 18:37 18:37 WBC RBC Hgb Hct MCV MCH MCHC RDW Plt Count Lymph % (Auto) [place] % (Auto) Eos % (Auto) Baso % (Auto) Lymph # [place] # Eos # Baso # Add Manual Diff Total Counted Seg Neutrophils % Seg Neuts % (Manual) Band Neutrophils % Lymphocytes % (Manual) Reactive Lymphs % (Man) Monocytes % (Manual) Eosinophils % (Manual) Basophils % (Manual) Metamyelocytes % Myelocytes % Promyelocytes % Blast Cells % Nucleated RBC % Seg Neutrophils # Seg Neutrophils # Man Band Neutrophils # Lymphocytes # (Manual) Abs React Lymphs (Man) Monocytes # (Manual) Eosinophils # (Manual) Basophils # (Manual) Metamyelocytes # Myelocytes # Promyelocytes # Blast Cells # WBC Morphology Hypersegmented Neuts Hyposegmented Neuts Hypogranular Neuts Smudge Cells Toxic Granulation Toxic Vacuolation Dohle Bodies Pelger-Huet Anomaly Cristina Rods Platelet Estimate Clumped Platelets Plt Clumps, EDTA Large Platelets Giant Platelets Platelet Satelliting Plt Morphology Comment RBC Morphology Dimorphic RBCs Polychromasia Hypochromasia Poikilocytosis Anisocytosis Microcytosis Macrocytosis Spherocytes Pappenheimer Bodies Sickle Cells Target Cells Tear Drop Cells Ovalocytes Helmet Cells Cm[place]ary[place] Bodies [place] Rings Shan Cells Bite Cells Crenated Cell Elliptocytes Acanthocytes (Spur) Rouleaux Hemoglobin C Crystals Schistocytes Malaria parasites Babatunde Bodies Hem Pathologist Commnt PT 17.5 H INR 1.41 H APTT 34.5 VBG pH 7.446 H Sodium Potassium Chloride Carbon Dioxide Anion Gap BUN Creatinine Estimated GFR BUN/Creatinine Ratio Glucose Lactic Acid Calcium Total Bilirubin AST ALT Alkaline Phosphatase Ammonia 117.0 H Total Creatine Kinase CK-MB (CK-2) CK-MB (CK-2) Rel Index Troponin T Total Protein Albumin Albumin/Globulin Ratio Triglycerides Cholesterol LDL Cholesterol Direct HDL Cholesterol Cholesterol/HDL Ratio 11/25/19 11/26/19 11/26/19 20:50 06:54 06:54 WBC 4.8 RBC 3.58 L Hgb 7.9 L Hct 26.2 L MCV 73 L MCH 22 L MCHC 30 L RDW 23.8 H Plt Count 114 L Lymph % (Auto) 14.1 [place] % (Auto) 10.2 H Eos % (Auto) 1.3 Baso % (Auto) 2.0 H Lymph # 0.7 L [place] # 0.5 Eos # 0.1 Baso # 0.1 Add Manual Diff Total Counted Seg Neutrophils % 72.4 H Seg Neuts % (Manual) Band Neutrophils % Lymphocytes % (Manual) Reactive Lymphs % (Man) Monocytes % (Manual) Eosinophils % (Manual) Basophils % (Manual) Metamyelocytes % Myelocytes % Promyelocytes % Blast Cells % Nucleated RBC % Seg Neutrophils # 3.5 Seg Neutrophils # Man Band Neutrophils # Lymphocytes # (Manual) Abs React Lymphs (Man) Monocytes # (Manual) Eosinophils # (Manual) Basophils # (Manual) Metamyelocytes # Myelocytes # Promyelocytes # Blast Cells # WBC Morphology Hypersegmented Neuts Hyposegmented Neuts Hypogranular Neuts Smudge Cells Toxic Granulation Toxic Vacuolation Dohle Bodies Pelger-Huet Anomaly Cristina Rods Platelet Estimate Clumped Platelets Plt Clumps, EDTA Large Platelets Giant Platelets Platelet Satelliting Plt Morphology Comment RBC Morphology Dimorphic RBCs Polychromasia Hypochromasia Poikilocytosis Anisocytosis Microcytosis Macrocytosis Spherocytes Pappenheimer Bodies Sickle Cells Target Cells Tear Drop Cells Ovalocytes Helmet Cells Mccrary-[place] Bodies [place] Rings [place] Cells Bite Cells Crenated Cell Elliptocytes Acanthocytes (Spur) Rouleaux Hemoglobin C Crystals Schistocytes Malaria parasites Babatunde Bodies Hem Pathologist Commnt PT INR APTT VBG pH Sodium Potassium Chloride Carbon Dioxide Anion Gap BUN Creatinine Estimated GFR BUN/Creatinine Ratio Glucose Lactic Acid 4.20 H* 3.30 H* Calcium Total Bilirubin AST ALT Alkaline Phosphatase Ammonia Total Creatine Kinase CK-MB (CK-2) CK-MB (CK-2) Rel Index Troponin T Total Protein Albumin Albumin/Globulin Ratio Triglycerides Cholesterol LDL Cholesterol Direct HDL Cholesterol Cholesterol/HDL Ratio 11/26/19 11/26/19 06:54 06:54 WBC RBC Hgb Hct MCV MCH MCHC RDW Plt Count Lymph % (Auto) [place] % (Auto) Eos % (Auto) Baso % (Auto) Lymph # [place] # Eos # Baso # Add Manual Diff Total Counted Seg Neutrophils % Seg Neuts % (Manual) Band Neutrophils % Lymphocytes % (Manual) Reactive Lymphs % (Man) Monocytes % (Manual) Eosinophils % (Manual) Basophils % (Manual) Metamyelocytes % Myelocytes % Promyelocytes % Blast Cells % Nucleated RBC % Seg Neutrophils # Seg Neutrophils # Man Band Neutrophils # Lymphocytes # (Manual) Abs React Lymphs (Man) Monocytes # (Manual) Eosinophils # (Manual) Basophils # (Manual) Metamyelocytes # Myelocytes # Promyelocytes # Blast Cells # WBC Morphology Hypersegmented Neuts Hyposegmented Neuts Hypogranular Neuts Smudge Cells Toxic Granulation Toxic Vacuolation Dohle Bodies Pelger-Huet Anomaly Cristina Rods Platelet Estimate Clumped Platelets Plt Clumps, EDTA Large Platelets Giant Platelets Platelet Satelliting Plt Morphology Comment RBC Morphology Dimorphic RBCs Polychromasia Hypochromasia Poikilocytosis Anisocytosis Microcytosis Macrocytosis Spherocytes Pappenheimer Bodies Sickle Cells Target Cells Tear Drop Cells Ovalocytes Helmet Cells Mccrary-[place] Bodies [place] Rings Vista Cells Bite Cells Crenated Cell Elliptocytes Acanthocytes (Spur) Rouleaux Hemoglobin C Crystals Schistocytes Malaria parasites Babatunde Bodies Hem Pathologist Commnt PT INR APTT VBG pH Sodium 134 L Potassium 4.5 Chloride 95.8 L Carbon Dioxide 14 L Anion Gap 29 BUN 51 H Creatinine 10.6 H Estimated GFR 6 BUN/Creatinine Ratio 5 Glucose 123 H Lactic Acid Calcium 8.7 Total Bilirubin AST ALT Alkaline Phosphatase Ammonia 94.0 H Total Creatine Kinase 399 H CK-MB (CK-2) 4.3 H CK-MB (CK-2) Rel Index 1.0 Troponin T 0.051 H Total Protein Albumin Albumin/Globulin Ratio Triglycerides 133 Cholesterol 91 LDL Cholesterol Direct 42 L HDL Cholesterol 12 L Cholesterol/HDL Ratio 7.58 Assessment and Plan # Based on high AFP - 3000s - this is likely HCC - with Lung mets? # h/o mentation changes - being Rx for - Hepatic encephalopathy s/p lactulose, prophylactic antibiotic # h/o Fever Consulted ID # Nodules in lung concerning for metastasis/liver mass concerning for hepatocellular carcinoma # Anemia/thrombocytopenia/IVC thrombus will give IV iron trial as MCV is lower than past - b12 - folate was normal in sep 2019 # IVC thrombus may be tumor thrombus - sec to HCC # End-stage renal disease on dialysis - Consulted renal for dialysis # Hypertension - hospitalist following # Diabetes - hospitalist following # h/o CHF, cirrhosis, hepatitis C, - Patient Problems (1) Hepatocellular carcinoma Current Visit: No Status: Acute
[2019-11-26] MEDS ORDERED: ENOXAPARIN 30 MG/0.3 ML INJ SUB-Q SCH (10:00)
[2019-11-26] MEDS ORDERED: SODIUM FERRIC GLUCON/SUCRO 125 MG in SODIUM CHLORIDE 0.9% 100 ML IV ONE (12:20)
--- NOTE | 2019-11-26 12:30 | Consultation ---
Past History Past Medical History: other ( hypertension, diabetes, end-stage renal disease on dialysis, CHF, cirrhosis, hepatitis C, liver mass concerning for hepatocellular carcinoma) Medications and Allergies Allergies Allergy/AdvReac Type Severity Reaction Status Date / Time No Known Allergies Allergy Unverified 05/10/18 17:04 Home Medications Medication Instructions Recorded Confirmed Last Taken Type Albuterol INH(or & Nicu Only) 2 puff IH QID PRN 05/17/18 11/26/19 09/01/18 History [ProAir HFA Inhaler] 2 puff Amlodipine Besylate [Norvasc] 10 mg PO QDAY 05/17/18 11/26/19 10/02/19 History Gabapentin 300 mg PO BID #60 capsule 10/05/19 11/26/19 Unknown Rx Pantoprazole [Protonix TAB] 40 mg PO QDAY #30 tablet 10/05/19 11/26/19 Unknown Rx carvediloL [Coreg] 3.125 mg PO BID #60 tablet 10/05/19 11/26/19 Unknown Rx Enoxaparin 80 mg SQ Q24HR #60 syringe 10/17/19 11/26/19 Unknown Rx Active Meds: Active Medications Acetaminophen (Tylenol) 650 mg PO Q4H PRN PRN Reason: Pain MILD(1-3)/Fever >100.5/MAYES Dextrose (D50w (25gm) Syringe) 50 ml IV Q30MIN PRN; Protocol PRN Reason: Hypoglycemia Cefepime HCl (Cefepime/Ns 1 Gm/100 Ml) 1 gm in 100 mls @ 200 mls/hr IV Q24H [facility] Ferric Sodium Gluconate Complex 125 mg/ Sodium Chloride 110 mls @ 100 mls/hr IV ONCE ONE Stop: 11/26/19 13:25 Lactulose (Cephulac) 20 gm PO Q6HR [facility] Last Admin: 11/26/19 05:52 Dose: 20 gm Documented by: Ondansetron HCl (Zofran) 4 mg IV Q8H PRN PRN Reason: Nausea And Vomiting Sodium Chloride (Sodium Chloride Flush Syringe 10 Ml) 10 ml IV BID [facility] Last Admin: 11/26/19 11:20 Dose: 10 ml Documented by: Sodium Chloride (Sodium Chloride Flush Syringe 10 Ml) 10 ml IV PRN PRN PRN Reason: LINE FLUSH Exam - Vital Signs Vital signs: Vital Signs Resp 27 H 11/25/19 17:26 Results - Lab Results 11/26/19 06:54 11/26/19 06:54 Most recent lab results Calcium 8.7 mg/dL (8.4-10.2) 11/26/19 06:54
--- NOTE | 2019-11-26 12:41 | Event Note ---
Thank you for the consultation patient is currently rule out status for coronavirus and hence care plan was coordinated with his nurse and I am available to discuss with care with any service if needed at [phone] I did discuss with patient's nurse, he is comfortable in no acute distress My assessment and plan are as follows End-stage renal disease: Patient is currently on maintenance hemodialysis patient will receive hemodialysis treatment tomorrow and will keep him on Wednesday hemodialysis, effective tomorrow Metabolic acidosis, bicarb 16 elevated lactic acid level monitor and follow Anemia current hemoglobin 7.8 platelet count 1 12,000 being followed by oncology for now Encephalopathy: Multifactorial in his case mostly resulting from hepatic encephalopathy, ammonia level was noted to be elevated Hemodialysis nurse to ultrafiltrate as tolerated, systolic blood pressure must be kept above 100, heart rate below 100 Bone mineral disorder and secondary hyperparathyroidism: Monitor phosphorus and PTH level periodically We will continue to monitor and follow from renal standpoint Author: Brendan Becerra M.D. [facility], [address] [place] [address] Tel; [phone] Source of information: Current chart patient also discussed with patient History of present illness 64-year-old male who was been admitted here with altered mental status significantly elevated ammonia level, currently dialysis dependent, noted to have lactic acidosis, no hyperkalemia, patient says he is feeling well He has no complaints of any shortness of breath or chest pain No fever or chills myalgias Mentation has markedly improved according to the nurse He was given antibiotic in the ER Currently also being followed by IMS service as well as hematology Past medical history: ESRD Hypertension Congestive heart IVC thrombus Bone mineral disorder Anemia in end-stage renal disease Hepatitis C, liver mass, known since September 2019, currently followed by oncology Liver mass Current allergies: Reviewed from the current chart Social history: Reviewed from the current chart Family history: Reviewed from the current chart Review of system: altered mental status but according to nurse patient's mentation has improved Physical examination Vitals: Reviewed Rest of the examination was reviewed from other physicians report Labs and x-rays: Reviewed from this admission
[2019-11-26] MEDS: CEFEPIME/NS 1 GM/100 ML 1 GM/100 ML BAG IV SCH (21:49)
--- NOTE | 2019-11-26 22:08 | Progress Note ---
Assessment and Plan Assessment and plan: Hepatic encephalopathy Continue lactulose, prophylactic antibiotic Obtain cultures, Re check ammonia level, c Fever COVID forms were filled out Placed on droplet, contact isolation Consult ID Nodules in lung concerning for metastasis/liver mass concerning for hepatocellular carcinoma Consult oncology Patient was given referral to follow-up with surgical oncology at [place] in September Anemia/thrombocytopenia/IVC thrombus On last discharge he was supposed to be on full dose Lovenox Will hold Lovenox for now defer to oncology for continuation given anemia and thrombocytopenia End-stage renal disease on dialysis Consult renal for dialysis Hypertension Continue outpatient medications Diabetes Check fingersticks, hold insulin for now DVT prophylaxis. On Lovenox History Interval history: Patient admitted for decreased responsiveness Hospitalist Physical - Physical exam Narrative exam: GEN: Not in acute distress,morbidly obese HEENT: Normocephalic, atraumatic, Neck: supple, No JVD Lungs: Bilateral crackles, heart;S1 and S2 reg, no murmurs, rubs or gallop Abd:soft, non tender, non distended, normal bowel sounds, Ext: No edema, no clubbing, no cyanosis, Neuro: AAO x 3. No focal neuro signs - Constitutional Vitals: Temp Pulse Resp BP Pulse Ox 97.9 F 81 22 163/66 94 11/26/19 22:04 11/26/19 22:04 11/26/19 22:04 11/26/19 22:04 11/26/19 22:04 YURIY score - Yuriy Score Age > 65: (1) Yes Aspirin use within the Past 7 Days: (1) Yes 3 or more CAD Risk Factors: (1) Yes 2 or more Angina events in past 24 hrs: (1) Yes Known CAD with more than 50% Stenosis: (0) No Elevated Cardiac Markers: (1) Yes ST Deviation Greater than 0.5mm: (0) No YURIY Score: 5 Results - Labs CBC & Chem 7: 11/26/19 06:54 11/26/19 06:54 Labs: Laboratory Last Values WBC 4.8 K/mm3 (4.5-11.0) 11/26/19 06:54 RBC 3.58 M/mm3 (3.65-5.03) L 11/26/19 06:54 Hgb 7.9 gm/dl (11.8-15.2) L 11/26/19 06:54 Hct 26.2 % (35.5-45.6) L 11/26/19 06:54 MCV 73 fl (84-94) L 11/26/19 06:54 MCH 22 pg (28-32) L 11/26/19 06:54 MCHC 30 % (32-34) L 11/26/19 06:54 RDW 23.8 % (13.2-15.2) H 11/26/19 06:54 Plt Count 114 K/mm3 (140-440) L 11/26/19 06:54 Lymph % (Auto) 14.1 % (13.4-35.0) 11/26/19 06:54 [place] % (Auto) 10.2 % (0.0-7.3) H 11/26/19 06:54 Eos % (Auto) 1.3 % (0.0-4.3) 11/26/19 06:54 Baso % (Auto) 2.0 % (0.0-1.8) H 11/26/19 06:54 Lymph # 0.7 K/mm3 (1.2-5.4) L 11/26/19 06:54 [place] # 0.5 K/mm3 (0.0-0.8) 11/26/19 06:54 Eos # 0.1 K/mm3 (0.0-0.4) 11/26/19 06:54 Baso # 0.1 K/mm3 (0.0-0.1) 11/26/19 06:54 Add Manual Diff Complete 11/25/19 17:32 Total Counted 100 11/25/19 17:32 Seg Neutrophils % 72.4 % (40.0-70.0) H 11/26/19 06:54 Seg Neuts % (Manual) 85.0 % (40.0-70.0) H 11/25/19 17:32 Band Neutrophils % 0 % 11/25/19 17:32 Lymphocytes % (Manual) 10.0 % (13.4-35.0) L 11/25/19 17:32 Reactive Lymphs % (Man) 0 % 11/25/19 17:32 Monocytes % (Manual) 5.0 % (0.0-7.3) 11/25/19 17:32 Eosinophils % (Manual) 0 % (0.0-4.3) 11/25/19 17:32 Basophils % (Manual) 0 % (0.0-1.8) 11/25/19 17:32 Metamyelocytes % 0 % 11/25/19 17:32 Myelocytes % 0 % 11/25/19 17:32 Promyelocytes % 0 % 11/25/19 17:32 Blast Cells % 0 % 11/25/19 17:32 Nucleated RBC % 1.0 % (0.0-0.9) H 11/25/19 17:32 Seg Neutrophils # 3.5 K/mm3 (1.8-7.7) 11/26/19 06:54 Seg Neutrophils # Man 4.7 K/mm3 (1.8-7.7) 11/25/19 17:32 Band Neutrophils # 0.0 K/mm3 11/25/19 17:32 Lymphocytes # (Manual) 0.6 K/mm3 (1.2-5.4) L 11/25/19 17:32 Abs React Lymphs (Man) 0.0 K/mm3 11/25/19 17:32 Monocytes # (Manual) 0.3 K/mm3 (0.0-0.8) 11/25/19 17:32 Eosinophils # (Manual) 0.0 K/mm3 (0.0-0.4) 11/25/19 17:32 Basophils # (Manual) 0.0 K/mm3 (0.0-0.1) 11/25/19 17:32 Metamyelocytes # 0.0 K/mm3 11/25/19 17:32 Myelocytes # 0.0 K/mm3 11/25/19 17:32 Promyelocytes # 0.0 K/mm3 11/25/19 17:32 Blast Cells # 0.0 K/mm3 11/25/19 17:32 WBC Morphology Not Reportable 11/25/19 17:32 Hypersegmented Neuts Not Reportable 11/25/19 17:32 Hyposegmented Neuts Not Reportable 11/25/19 17:32 Hypogranular Neuts Not Reportable 11/25/19 17:32 Smudge Cells Not Reportable 11/25/19 17:32 Toxic Granulation Not Reportable 11/25/19 17:32 Toxic Vacuolation Not Reportable 11/25/19 17:32 Dohle Bodies Not Reportable 11/25/19 17:32 Pelger-Huet Anomaly Not Reportable 11/25/19 17:32 Cristina Rods Not Reportable 11/25/19 17:32 Platelet Estimate Consistent w auto 11/25/19 17:32 Clumped Platelets Not Reportable 11/25/19 17:32 Plt Clumps, EDTA Not Reportable 11/25/19 17:32 Large Platelets Not Reportable 11/25/19 17:32 Giant Platelets Not Reportable 11/25/19 17:32 Platelet Satelliting Not Reportable 11/25/19 17:32 Plt Morphology Comment Not Reportable 11/25/19 17:32 RBC Morphology Not Reportable 11/25/19 17:32 Dimorphic RBCs Not Reportable 11/25/19 17:32 Polychromasia Few 11/25/19 17:32 Hypochromasia Few 11/25/19 17:32 Poikilocytosis Not Reportable 11/25/19 17:32 Anisocytosis 2+ 11/25/19 17:32 Microcytosis Few 11/25/19 17:32 Macrocytosis 1+ 11/25/19 17:32 Spherocytes Not Reportable 11/25/19 17:32 Pappenheimer Bodies Not Reportable 11/25/19 17:32 Sickle Cells Not Reportable 11/25/19 17:32 Target Cells Few 11/25/19 17:32 Tear Drop Cells Not Reportable 11/25/19 17:32 Ovalocytes Few 11/25/19 17:32 Helmet Cells Not Reportable 11/25/19 17:32 Mccrary-Dermott Bodies Not Reportable 11/25/19 17:32 [place] Rings Not Reportable 11/25/19 17:32 Shan Cells Not Reportable 11/25/19 17:32 Bite Cells Not Reportable 11/25/19 17:32 Crenated Cell Not Reportable 11/25/19 17:32 Elliptocytes Not Reportable 11/25/19 17:32 Acanthocytes (Spur) Not Reportable 11/25/19 17:32 Rouleaux Not Reportable 11/25/19 17:32 Hemoglobin C Crystals Not Reportable 11/25/19 17:32 Schistocytes Rare 11/25/19 17:32 Malaria parasites Not Reportable 11/25/19 17:32 Bab[place]unde Bodies Not Reportable 11/25/19 17:32 Hem Pathologist Commnt No 11/25/19 17:32 PT 17.5 Sec. (12.2-14.9) H 11/25/19 18:37 INR 1.41 (0.87-1.13) H 11/25/19 18:37 APTT 34.5 Sec. (24.2-36.6) 11/25/19 18:37 VBG pH 7.446 (7.320-7.420) H 11/25/19 18:37 Sodium 134 mmol/L (137-145) L 11/26/19 06:54 Potassium 4.5 mmol/L (3.6-5.0) 11/26/19 06:54 Chloride 95.8 mmol/L (98-107) L 11/26/19 06:54 Carbon Dioxide 14 mmol/L (22-30) L 11/26/19 06:54 Anion Gap 29 mmol/L 11/26/19 06:54 BUN 51 mg/dL (9-20) H 11/26/19 06:54 Creatinine 10.6 mg/dL (0.8-1.5) H 11/26/19 06:54 Estimated GFR 6 ml/min 11/26/19 06:54 BUN/Creatinine Ratio 5 % 11/26/19 06:54 Glucose 123 mg/dL (75-100) H 11/26/19 06:54 POC Glucose 229 (70-105) H 11/26/19 12:27 Lactic Acid 3.80 mmol/L (0.7-2.0) H* 11/26/19 16:02 Calcium 8.7 mg/dL (8.4-10.2) 11/26/19 06:54 Total Bilirubin 1.10 mg/dL (0.1-1.2) 11/25/19 18:37 AST 89 units/L (5-40) H 11/25/19 18:37 ALT 18 units/L (7-56) 11/25/19 18:37 Alkaline Phosphatase 146 units/L (35-129) H 11/25/19 18:37 Ammonia 94.0 umol/L (25-60) H 11/26/19 06:54 Total Creatine Kinase 399 units/L (55-170) H 11/26/19 06:54 CK-MB (CK-2) 4.3 ng/mL (0.0-4.0) H 11/26/19 06:54 CK-MB (CK-2) Rel Index 1.0 (0-4) 11/26/19 06:54 Troponin T 0.051 ng/mL (0.00-0.029) H 11/26/19 06:54 Total Protein 8.0 g/dL (6.3-8.2) 11/25/19 18:37 Albumin 2.5 g/dL (3.9-5) L 11/25/19 18:37 Albumin/Globulin Ratio 0.5 % 11/25/19 18:37 Triglycerides 133 mg/dL (2-149) 11/26/19 06:54 Cholesterol 91 mg/dL (50-199) 11/26/19 06:54 LDL Cholesterol Direct 42 mg/dL (50-130) L 11/26/19 06:54 HDL Cholesterol 12 mg/dL (40-59) L 11/26/19 06:54 Cholesterol/HDL Ratio 7.58 % 11/26/19 06:54 Microbiology: Microbiology 11/25/19 18:37 Peripheral/Venous Blood Culture - Preliminary NO GROWTH AFTER 24 HOURS 11/25/19 18:37 Peripheral/Venous Blood Culture - Preliminary NO GROWTH AFTER 24 HOURS Hcristianson/IV: Voiding Method Toilet IV Catheter Type [Right Hand] INT / Saline Lock Active Medications - Current Medications Current Medications: Generic Name Dose Route Start Last Admin Trade Name Freq PRN Reason Stop Dose Admin Acetaminophen 650 mg 11/25/19 23:45 Tylenol PO Q4H PRN Pain MILD(1-3)/Fever >100.5/MAYES Dextrose 50 ml 11/25/19 23:45 D50w (25gm) Syringe IV Q30MIN PRN Hypoglycemia Protocol Cefepime HCl 1 gm in 100 mls @ 200 mls/hr 11/26/19 20:00 11/26/19 21:49 Cefepime/Ns 1 Gm/100 Ml IV 200 mls/hr Q24H KERRIE Administration Lactulose 20 gm 11/26/19 01:00 11/26/19 21:50 Cephulac PO Not Given Q6HR KERRIE Ondansetron HCl 4 mg 11/25/19 23:45 Zofran IV Q8H PRN Nausea And Vomiting Sodium Chloride 10 ml 11/26/19 10:00 11/26/19 21:49 Sodium Chloride Flush Syringe 10 Ml IV 10 ml BID KERRIE Administration Sodium Chloride 10 ml 11/25/19 23:45 Sodium Chloride Flush Syringe 10 Ml IV PRN PRN LINE FLUSH
[2019-11-26] MEDS ORDERED: SODIUM CHLORIDE 0.9% 100 ML IV PRN (22:42)
[2019-11-27] MEDS ORDERED: ALBUTEROL 8.5 GM INHALATION IH PRN (00:07)
[2019-11-27] MEDS ORDERED: ALBUTEROL 2.5 MG/3 ML NEBU IH PRN (00:13)
[2019-11-27 00:20] LABS: Hepatitis B Surface Antigen Non-Reactive (Negative); Hepatitis C Virus Antibody Reactive (NonReactive)
[2019-11-27] MEDS: LACTULOSE 20 GM/30 ML ORAL LIQD PO SCH ×4 (00:42→18:07)
[2019-11-27 04:14] LABS: Albumin 2.3 g/dL (3.9-5); Calcium 8.7 mg/dL (8.4-10.2)
--- NOTE | 2019-11-27 10:45 | Progress Note ---
Assessment and Plan Patient is currently rule out status for coronavirus. Patient was seen by myself today, but will perform exams and [id number] encounters only as needed from here on out to avoid excessive use of PPE. Please do not hesitate to reach out to me on my cell at [phone] to discuss any renal related issues. # End-stage renal disease: - no indication for HD today, will continue HD // per outpatient regimen, due tomorrow - avoid nephrotoxins - renally dose meds - daily labs # Metabolic acidosis: likely related to lactic acidosis and ESRD. HD tomorrow, supportive measures per primary team # Anemia: current hemoglobin 7.9, hematology has followed # Encephalopathy: multifactorial, likely hepatic encephalopathy, ammonia level was noted to be elevated on admission # HTN: UF as tolerated, BP reasonable # Bone mineral disorder and secondary hyperparathyroidism: Monitor phosphorus and PTH level periodically, continue binders as indicated # Fever: COVID-19 rule out, placed on droplet, contact isolation. Appreciate ID # Nodules in lung concerning for metastasis/liver mass concerning for he patocellular carcinoma: following with oncology We will continue to monitor and follow from renal standpoint Subjective Date of service: 11/27/19 Interval history: No acute events noted. Remains weak per subjective report. Objective - Exam Narrative Exam: Constitutional: no acute distress Head: NC/AT Neck: supple Lungs: clear to auscultation CV: RRR, no M/R/G Abdomen: soft, non-tender, bowel sounds present Back: nontender Extremities: no edema, pulses WNL Skin: intact Neuro: no focal deficits, alert and oriented but confused to time and date - Vital Signs Vital signs: Vital Signs - 12hr 11/27/19 04:02 Temperature 97.7 F Pulse Rate 75 Respiratory 20 Rate Blood Pressure 124/53 O2 Sat by Pulse 96 Oximetry - Lab 11/26/19 06:54 11/27/19 03:36 Most recent lab results Calcium 8.7 mg/dL (8.4-10.2) 11/27/19 03:36 Medications & Allergies - Medications Allergies/Adverse Reactions: Allergies No Known Allergies Allergy (Unverified 05/10/18 17:04) Home Medications: Home Medications Medication Instructions Recorded Confirmed Last Taken Type Albuterol INH(or & Nicu Only) 2 puff IH QID PRN 05/17/18 11/26/1909/01/19 History [ProAir HFA Inhaler] 2 puff Amlodipine Besylate [Norvasc] 10 mg PO QDAY 05/17/18 11/26/19 10/02/19 History Gabapentin 300 mg PO BID #60 capsule 10/05/19 11/26/19 Unknown Rx Pantoprazole [Protonix TAB] 40 mg PO QDAY #30 tablet 10/05/19 11/26/19 Unknown Rx carvediloL [Coreg] 3.125 mg PO BID #60 tablet 10/05/19 11/26/19 Unknown Rx Enoxaparin 80 mg SQ Q24HR #60 syringe 10/17/19 11/26/19 Unknown Rx Active Medications: Generic Name Dose Route Start Last Admin Trade Name Freq PRN Reason Stop Dose Admin Acetaminophen 650 mg 11/25/19 23:45 Tylenol PO Q4H PRN Pain MILD(1-3)/Fever >100.5/MAYES Albuterol 2.5 mg 11/27/19 00:13 Proventil IH Q4HRT PRN Shortness Of Breath Carvedilol 3.125 mg 11/27/19 10:00 Coreg PO BID KERRIE Dextrose 50 ml 11/25/19 23:45 D50w (25gm) Syringe IV Q30MIN PRN Hypoglycemia Protocol Cefepime HCl 1 gm in 100 mls @ 200 mls/hr 11/26/19 20:00 11/26/19 21:49 Cefepime/Ns 1 Gm/100 Ml IV 200 mls/hr Q24H KERRIE Administration Sodium Chloride 100 mls @ 999 mls/hr 11/26/19 22:42 Nacl 0.9% IV BARTOLO PRN Hypotension Lactulose 20 gm 11/26/19 01:00 11/27/19 05:49 Cephulac PO Not Given Q6HR KERRIE Ondansetron HCl 4 mg 11/25/19 23:45 Zofran IV Q8H PRN Nausea And Vomiting Pantoprazole Sodium 40 mg 11/27/19 10:00 Protonix PO QDAY KERRIE Sodium Chloride 10 ml 11/26/19 10:00 11/26/19 21:49 Sodium Chloride Flush Syringe 10 Ml IV 10 ml BID KERRIE Administration Sodium Chloride 10 ml 11/25/19 23:45 Sodium Chloride Flush Syringe 10 Ml IV PRN PRN LINE FLUSH
[2019-11-27] MEDS: carvediloL 3.125 MG TAB PO SCH ×2 (11:00→21:44)
[2019-11-27] MEDS: PANTOPRAZOLE 40 MG TAB PO SCH (11:01)
--- NOTE | 2019-11-27 13:10 | Progress Note ---
Assessment and Plan Assessment and plan: Hepatic encephalopathy Continue lactulose, prophylactic antibiotic Obtain cultures, Re check ammonia level, Fever COVID forms were filled out Placed on droplet, contact isolation Consult ID Nodules in lung concerning for metastasis/liver mass concerning for hepatocellular carcinoma Consult oncology Patient was given referral to follow-up with surgical oncology at [place] in September Anemia/thrombocytopenia/IVC thrombus On last discharge he was supposed to be on full dose Lovenox Will hold Lovenox for now defer to oncology for continuation given anemia and thrombocytopenia End-stage renal disease on dialysis Consult renal for dialysis Hypertension Continue outpatient medications Diabetes Check fingersticks, hold insulin for now 11/27/19 Patient feels better, mental status improved. Ammonia improving. History Interval history: Patient admitted for decreased responsiveness Hospitalist Physical - Physical exam Narrative exam: GEN: Not in acute distress, overweight HEENT: Normocephalic, atraumatic, Neck: supple, No JVD Lungs: Bilateral crackles, heart;S1 and S2 reg, no murmurs, rubs or gallop Abd:soft, non tender, non distended, normal bowel sounds, Ext: No edema, no clubbing, no cyanosis, Neuro: Awake,alert, moves all ext - Constitutional Vitals: Temp Pulse Resp BP Pulse Ox 97.7 F 75 20 124/53 96 11/27/19 04:02 11/27/19 11:00 11/27/19 04:02 11/27/19 04:02 11/27/19 04:02 YURIY score - Yuriy Score Age > 65: (1) Yes Aspirin use within the Past 7 Days: (1) Yes 3 or more CAD Risk Factors: (1) Yes 2 or more Angina events in past 24 hrs: (1) Yes Known CAD with more than 50% Stenosis: (0) No Elevated Cardiac Markers: (1) Yes ST Deviation Greater than 0.5mm: (0) No YURIY Score: 5 Results - Labs CBC & Chem 7: 11/26/19 06:54 11/27/19 03:36 Labs: Laboratory Last Values WBC 4.8 K/mm3 (4.5-11.0) 11/26/19 06:54 RBC 3.58 M/mm3 (3.65-5.03) L 11/26/19 06:54 Hgb 7.9 gm/dl (11.8-15.2) L 11/26/19 06:54 Hct 26.2 % (35.5-45.6) L 11/26/19 06:54 MCV 73 fl (84-94) L 11/26/19 06:54 MCH 22 pg (28-32) L 11/26/19 06:54 MCHC 30 % (32-34) L 11/26/19 06:54 RDW 23.8 % (13.2-15.2) H 11/26/19 06:54 Plt Count 114 K/mm3 (140-440) L 11/26/19 06:54 Lymph % (Auto) 14.1 % (13.4-35.0) 11/26/19 06:54 [place] % (Auto) 10.2 % (0.0-7.3) H 11/26/19 06:54 Eos % (Auto) 1.3 % (0.0-4.3) 11/26/19 06:54 Baso % (Auto) 2.0 % (0.0-1.8) H 11/26/19 06:54 Lymph # 0.7 K/mm3 (1.2-5.4) L 11/26/19 06:54 [place] # 0.5 K/mm3 (0.0-0.8) 11/26/19 06:54 Eos # 0.1 K/mm3 (0.0-0.4) 11/26/19 06:54 Baso # 0.1 K/mm3 (0.0-0.1) 11/26/19 06:54 Add Manual Diff Complete 11/25/19 17:32 Total Counted 100 11/25/19 17:32 Seg Neutrophils % 72.4 % (40.0-70.0) H 11/26/19 06:54 Seg Neuts % (Manual) 85.0 % (40.0-70.0) H 11/25/19 17:32 Band Neutrophils % 0 % 11/25/19 17:32 Lymphocytes % (Manual) 10.0 % (13.4-35.0) L 11/25/19 17:32 Reactive Lymphs % (Man) 0 % 11/25/19 17:32 Monocytes % (Manual) 5.0 % (0.0-7.3) 11/25/19 17:32 Eosinophils % (Manual) 0 % (0.0-4.3) 11/25/19 17:32 Basophils % (Manual) 0 % (0.0-1.8) 11/25/19 17:32 Metamyelocytes % 0 % 11/25/19 17:32 Myelocytes % 0 % 11/25/19 17: Promyelocytes % 0 % 11/25/19 17:32 Blast Cells % 0 % 11/25/19 17:32 Nucleated RBC % 1.0 % (0.0-0.9) H 11/25/19 17:32 Seg Neutrophils # 3.5 K/mm3 (1.8-7.7) 11/26/19 06:54 Seg Neutrophils # Man 4.7 K/mm3 (1.8-7.7) 11/25/19 17:32 Band Neutrophils # 0.0 K/mm3 11/25/19 17:32 Lymphocytes # (Manual) 0.6 K/mm3 (1.2-5.4) L 11/25/19 17:32 Abs React Lymphs (Man) 0.0 K/mm3 11/25/19 17:32 Monocytes # (Manual) 0.3 K/mm3 (0.0-0.8) 11/25/19 17:32 Eosinophils # (Manual) 0.0 K/mm3 (0.0-0.4) 11/25/19 17:32 Basophils # (Manual) 0.0 K/mm3 (0.0-0.1) 11/25/19 17:32 Metamyelocytes # 0.0 K/mm3 11/25/19 17:32 Myelocytes # 0.0 K/mm3 11/25/19 17:32 Promyelocytes # 0.0 K/mm3 11/25/19 17:32 Blast Cells # 0.0 K/mm3 11/25/19 17:32 WBC Morphology Not Reportable 11/25/19 17:32 Hypersegmented Neuts Not Reportable 11/25/19 17:32 Hyposegmented Neuts Not Reportable 11/25/19 17:32 Hypogranular Neuts Not Reportable 11/25/19 17:32 Smudge Cells Not Reportable 11/25/19 17:32 Toxic Granulation Not Reportable 11/25/19 17:32 Toxic Vacuolation Not Reportable 11/25/19 17:32 Dohle Bodies Not Reportable 11/25/19 17:32 Pelger-Huet Anomaly Not Reportable 11/25/19 17:32 Cristina Rods Not Reportable 11/25/19 17:32 Platelet Estimate Consistent w auto 11/25/19 17:32 Clumped Platelets Not Reportable 11/25/19 17:32 Plt Clumps, EDTA Not Reportable 11/25/19 17:32 Large Platelets Not Reportable 11/25/19 17:32 Giant Platelets Not Reportable 11/25/19 17:32 Platelet Satelliting Not Reportable 11/25/19 17:32 Plt Morphology Comment Not Reportable 11/25/19 17:32 RBC Morphology Not Reportable 11/25/19 17:32 Dimorphic RBCs Not Reportable 11/25/19 17:32 Polychromasia Few 11/25/19 17:32 Hypochromasia Few 11/25/19 17:32 Poikilocytosis Not Reportable 11/25/19 17:32 Anisocytosis 2+ 11/25/19 17:32 Microcytosis Few 11/25/19 17:32 Macrocytosis 1+ 11/25/19 17:32 Spherocytes Not Reportable 11/25/19 17:32 Pappenheimer Bodies Not Reportable 11/25/19 17:32 Sickle Cells Not Reportable 11/25/19 17:32 Target Cells Few 11/25/19 17:32 Tear Drop Cells Not Reportable 11/25/19 17:32 Ovalocytes Few 11/25/19 17:32 Helmet Cells Not Reportable 11/25/19 17:32 Mccrary-[place] Bodies Not Reportable 11/25/19 17:32 [place] Rings Not Reportable 11/25/19 17:32 [place] Cells Not Reportable 11/25/19 17:32 Bite Cells Not Reportable 11/25/19 17:32 Crenated Cell Not Reportable 11/25/19 17:32 Elliptocytes Not Reportable 11/25/19 17:32 Acanthocytes (Spur) Not Reportable 11/25/19 17:32 Rouleaux Not Reportable 11/25/19 17:32 Hemoglobin C Crystals Not Reportable 11/25/19 17:32 Schistocytes Rare 11/25/19 17:32 Malaria parasites Not Reportable 11/25/19 17:32 Bab[place]unde Bodies Not Reportable 11/25/19 17:32 Hem Pathologist Commnt No 11/25/19 17:32 PT 17.5 Sec. (12.2-14.9) H 11/25/19 18:37 INR 1.41 (0.87-1.13) H 11/25/19 18:37 APTT 34.5 Sec. (24.2-36.6) 11/25/19 18:37 VBG pH 7.446 (7.320-7.420) H 11/25/19 18:37 Sodium 132 mmol/L (137-145) L 11/27/19 03:36 Potassium 3.7 mmol/L (3.6-5.0) 11/27/19 03:36 Chloride 94.4 mmol/L (98-107) L 11/27/19 03:36 Carbon Dioxide 15 mmol/L (22-30) L 11/27/19 03:36 Anion Gap 26 mmol/L 11/27/19 03:36 BUN 56 mg/dL (9-20) H 11/27/19 03:36 Creatinine 11.7 mg/dL (0.8-1.5) H 11/27/19 03:36 Estimated GFR 5 ml/min 11/27/19 03:36 BUN/Creatinine Ratio 5 % 11/27/19 03:36 Glucose 138 mg/dL (75-100) H 11/27/19 03:36 POC Glucose 192 (70-105) H 11/27/19 12:31 Lactic Acid 3.30 mmol/L (0.7-2.0) H* 11/27/19 03:36 Calcium 8.7 mg/dL (8.4-10.2) 11/27/19 03:36 Total Bilirubin 0.80 mg/dL (0.1-1.2) 11/27/19 03:36 AST 103 units/L (5-40) H 11/27/19 03:36 ALT 21 units/L (7-56) 11/27/19 03:36 Alkaline Phosphatase 160 units/L (35-129) H 11/27/19 03:36 Ammonia 76.0 umol/L (25-60) H 11/27/19 03:36 Total Creatine Kinase 399 units/L (55-170) H 11/26/19 06:54 CK-MB (CK-2) 4.3 ng/mL (0.0-4.0) H 11/26/19 06:54 CK-MB (CK-2) Rel Index 1.0 (0-4) 11/26/19 06:54 Troponin T 0.051 ng/mL (0.00-0.029) H 11/26/19 06:54 Total Protein 7.7 g/dL (6.3-8.2) 11/27/19 03:36 Albumin 2.3 g/dL (3.9-5) L 11/27/19 03:36 Albumin/Globulin Ratio 0.4 % 11/27/19 03:36 Triglycerides 133 mg/dL (2-149) 11/26/19 06:54 Cholesterol 91 mg/dL (50-199) 11/26/19 06:54 LDL Cholesterol Direct 42 mg/dL (50-130) L 11/26/19 06:54 HDL Cholesterol 12 mg/dL (40-59) L 11/26/19 06:54 Cholesterol/HDL Ratio 7.58 % 11/26/19 06:54 Hepatitis A IgM Ab Non-reactive (NonReactive) 11/26/19 21:33 Hep Bs Antigen Non-reactive (Negative) 11/26/19 21:33 Hep B Core IgM Ab Non-reactive (NonReactive) 11/26/19 21:33 Hepatitis C Antibody Reactive (NonReactive) A 11/26/19 21:33 Microbiology: Microbiology 11/25/19 18:37 Peripheral/Venous Blood Culture - Preliminary NO GROWTH AFTER 24 HOURS 11/25/19 18:37 Peripheral/Venous Blood Culture - Preliminary NO GROWTH AFTER 24 HOURS Christianson/IV: Voiding Method Toilet IV Catheter Type [Right Hand] INT / Saline Lock Active Medications - Current Medications Current Medications: Generic Name Dose Route Start Last Admin Trade Name Freq PRN Reason Stop Dose Admin Acetaminophen 650 mg 11/25/19 23:45 Tylenol PO Q4H PRN Pain MILD(1-3)/Fever >100.5/MAYES Albuterol 2.5 mg 11/27/19 00:13 Proventil IH Q4HRT PRN Shortness Of Breath Carvedilol 3.125 mg 11/27/19 10:00 11/27/19 11:00 Coreg PO 3.125 mg BID KERRIE Administration Dextrose 50 ml 11/25/19 23:45 D50w (25gm) Syringe IV Q30MIN PRN Hypoglycemia Protocol Cefepime HCl 1 gm in 100 mls @ 200 mls/hr 11/26/19 20:00 11/26/19 21:49 Cefepime/Ns 1 Gm/100 Ml IV 200 mls/hr Q24H KERRIE Administration Sodium Chloride 100 mls @ 999 mls/hr 11/26/19 22:42 Nacl 0.9% IV BARTOLO PRN Hypotension Lactulose 20 gm 11/26/19 01:00 11/27/19 11:01 Cephulac PO 20 gm Q6HR KERRIE Administration Ondansetron HCl 4 mg 11/25/19 23:45 Zofran IV Q8H PRN Nausea And Vomiting Pantoprazole Sodium 40 mg 11/27/19 10:00 11/27/19 11:01 Protonix PO 40 mg QDAY KERRIE Administration Sodium Chloride 10 ml 11/26/19 10:00 11/27/19 11:01 Sodium Chloride Flush Syringe 10 Ml IV 10 ml BID KERRIE Administration Sodium Chloride 10 ml 11/25/19 23:45 Sodium Chloride Flush Syringe 10 Ml IV PRN PRN LINE FLUSH
[2019-11-27] MEDS: CEFEPIME/NS 1 GM/100 ML 1 GM/100 ML BAG IV SCH (21:43)
[2019-11-27] MEDS: ACETAMINOPHEN 325 MG TAB PO PRN (21:49)
[2019-11-27] MEDS ORDERED: SODIUM CHLORIDE 0.9% 100 ML IV PRN (22:28)
--- NOTE | 2019-11-27 22:53 | Consultation ---
History of Present Illness - Reason for Consult Consult date: 11/27/19 fever Requesting physician: YANELY LARSON - History of Present Illness 64 y/o male with a history of ESRD on HD, hypertension, diabetes, CHF, cirrhosis, hepatitis C, liver mass concerning for hepatocellular carcinoma in Sep 2019, IVC thrombus was brought to the emergency room for evaluation admitted due to AMS, decreased responsiveness by the neighbor. Patient is not the best historian, still confused. He reports he is feeling "bad" and complaining of abdominal pain. On rrival fever 100.3 with labs showing anemia and thrombocytopenia. CXR with hazy manny infiltrates. Review of Systems: unable to obtain Past History Past Medical History: other ( hypertension, diabetes, end-stage renal disease on dialysis, CHF, cirrhosis, hepatitis C, liver mass concerning for hepatocellular carcinoma) Medications and Allergies Allergies Allergy/AdvReac Type Severity Reaction Status Date / Time No Known Allergies Allergy Unverified 05/10/18 17:04 Home Medications Medication Instructions Recorded Confirmed Last Taken Type Albuterol INH(or & Nicu Only) 2 puff IH QID PRN 05/17/18 11/26/19 09/01/18 History [ProAir HFA Inhaler] 2 puff Amlodipine Besylate [Norvasc] 10 mg PO QDAY 05/17/18 11/26/19 10/02/19 History Gabapentin 300 mg PO BID #60 capsule 10/05/19 11/26/19 Unknown Rx Pantoprazole [Protonix TAB] 40 mg PO QDAY #30 tablet 10/05/19 11/26/19 Unknown Rx carvediloL [Coreg] 3.125 mg PO BID #60 tablet 10/05/19 11/26/19 Unknown Rx Enoxaparin 80 mg SQ Q24HR #60 syringe 10/17/19 11/26/19 Unknown Rx Active Meds: Active Medications Acetaminophen (Tylenol) 650 mg PO Q4H PRN PRN Reason: Pain MILD(1-3)/Fever >100.5/MAYES Last Admin: 11/27/19 21:49 Dose: 650 mg Documented by: Albuterol (Proventil) 2.5 mg IH Q4HRT PRN PRN Reason: Shortness Of Breath Carvedilol (Coreg) 3.125 mg PO BID KERRIE Last Admin: 11/27/19 21:44 Dose: 3.125 mg Documented by: Dextrose (D50w (25gm) Syringe) 50 ml IV Q30MIN PRN; Protocol PRN Reason: Hypoglycemia Cefepime HCl (Cefepime/Ns 1 Gm/100 Ml) 1 gm in 100 mls @ 200 mls/hr IV Q24H [facility] Last Admin: 11/27/19 21:43 Dose: 200 mls/hr Documented by: Sodium Chloride (Nacl 0.9%) 100 mls @ 999 mls/hr IV BARTOLO PRN PRN Reason: Hypotension Lactulose (Cephulac) 20 gm PO Q6HR [facility] Last Admin: 11/27/19 18:07 Dose: Not Given Documented by: Ondansetron HCl (Zofran) 4 mg IV Q8H PRN PRN Reason: Nausea And Vomiting Pantoprazole Sodium (Protonix) 40 mg PO QDAY [facility] Last Admin: 11/27/19 11:01 Dose: 40 mg Documented by: Sodium Chloride (Sodium Chloride Flush Syringe 10 Ml) 10 ml IV BID [facility] Last Admin: 11/27/19 21:44 Dose: 10 ml Documented by: Sodium Chloride (Sodium Chloride Flush Syringe 10 Ml) 10 ml IV PRN PRN PRN Reason: LINE FLUSH Physical Examination - Physical Exam Narrative exam: Gen: alert in NAD on room air Head, Ears, Nose: Normocephalic, atraumatic. Oral: Limited Cardiovascular: Limited evaluation due to PPE shortage Respiratory: bLimited GI: Limited evaluation due to PPE shortage Musculoskeletal: Limited evaluation due to PPE shortage Neurological: alert non focal - Constitutional Vitals: Vital Signs Temp Pulse Resp BP Pulse Ox 98.2 F 81 20 155/80 99 11/27/19 18:13 11/27/19 18:13 11/27/19 18:13 11/27/19 18:13 11/27/19 21:09 Temperature -Last 24 Hours Temperature 98.2 F Temperature 97.2 F Temperature 97.7 F Results - Labs CBC & Chem 7: 11/26/19 06:54 11/27/19 03:36 Labs: Abnormal lab results 11/26/19 11/26/19 11/26/19 Range/Units 21:33 21:33 22:22 Sodium (137-145) mmol/L Chloride (98-107) mmol/L Carbon Dioxide (22-30) mmol/L BUN (9-20) mg/dL Creatinine (0.8-1.5) mg/dL Glucose (75-100) mg/dL POC Glucose 158 H (70-105) Lactic Acid 3.90 H* (0.7-2.0) mmol/L AST (5-40) units/L Alkaline Phosphatase (35-129) units/L Ammonia (25-60) umol/L Albumin (3.9-5) g/dL Hepatitis C Antibody Reactive A (NonReactive) 11/27/19 11/27/19 11/27/19 Range/Units 03:36 03:36 03:36 Sodium 132 L (137-145) mmol/L Chloride 94.4 L (98-107) mmol/L Carbon Dioxide 15 L (22-30) mmol/L BUN 56 H (9-20) mg/dL Creatinine 11.7 H (0.8-1.5) mg/dL Glucose 138 H (75-100) mg/dL POC Glucose (70-105) Lactic Acid 3.30 H* (0.7-2.0) mmol/L AST 103 H (5-40) units/L Alkaline Phosphatase 160 H (35-129) units/L Ammonia 76.0 H (25-60) umol/L Albumin 2.3 L (3.9-5) g/dL Hepatitis C Antibody (NonReactive) 11/27/19 11/27/19 11/27/19 Range/Units 12:31 17:41 21:58 Sodium (137-145) mmol/L Chloride (98-107) mmol/L Carbon Dioxide (22-30) mmol/L BUN (9-20) mg/dL Creatinine (0.8-1.5) mg/dL Glucose (75-100) mg/dL POC Glucose 192 H 145 H 153 H (70-105) Lactic Acid (0.7-2.0) mmol/L AST (5-40) units/L Alkaline Phosphatase (35-129) units/L Ammonia (25-60) umol/L Albumin (3.9-5) g/dL Hepatitis C Antibody (NonReactive) Assessment and Plan Cultures: Blood culture 11/26/2019 no growth to date A/P: 64 y/o male with a history of ESRD on HD, hypertension, diabetes, CHF, cirrhosis, hepatitis C, liver mass concerning for hepatocellular carcinoma in Sep 2019, IVC thrombus was brought to the emergency room for evaluation admitted due to AMS, decreased responsiveness by the neighbor, now with a fever: #Fever: unclear etiology ? pneumonitis ?SBP #Bilateral pneumonia: CAP vs COVID. Currenly on room air #Acute encephalopathy: likely hepatic encephalopathy #Abdominal pain ? should r/o SBP #HCV cirrhosis with ascitis and possible HCC #ESRD on HD Recs: Consider diagnostic paracentesis Continuos pulse oximetry and check exercise oximetry Obtain COVID test ContinueCOVID isolationprecautions per [facility] protocol Continue cefepime renally adjusted Obtain serial Ferritin, LDH, D-Dimer, CRP every 48h Guarded prognosis Thank you for the consult, we will continue to follow. Alessandra Lopes MD Infectious Diseases [facility] ([facility]) M [phone] O [phone]
[2019-11-28] MEDS: LACTULOSE 20 GM/30 ML ORAL LIQD PO SCH ×4 (02:25→18:44)
--- NOTE | 2019-11-28 10:08 | Progress Note ---
Assessment and Plan Patient is currently rule out status for coronavirus. Spoke with patient over phone today, will perform exams and rajj-ye-anal encounters only as needed from here on out to avoid excessive use of PPE. Please do not hesitate to reach out to me on my cell at [phone] to discuss any renal related issues. # End-stage renal disease: - no indication for HD today, will continue HD // per outpatient regimen, due today - avoid nephrotoxins - renally dose meds - daily labs # Metabolic acidosis: likely related to lactic acidosis and ESRD. HD today, supportive measures per primary team # Anemia: current hemoglobin 7.9, hematology has followed # Encephalopathy: multifactorial, likely hepatic encephalopathy, ammonia level was noted to be elevated on admission, seems to be improving # HTN: UF as tolerated, BP reasonable # Bone mineral disorder and secondary hyperparathyroidism: Monitor phosphorus and PTH level periodically, continue binders as indicated # Fever: COVID-19 rule out, placed on droplet, contact isolation. Appreciate ID # Nodules in lung concerning for metastasis/liver mass concerning for hepatocellular carcinoma: following with oncology We will continue to monitor and follow from renal standpoint Subjective Date of service: 11/28/19 Interval history: No acute events noted. Spoke with patient over the phone. Remains weak per subjective report. Objective - Exam Narrative Exam: Physical exam not performed as encounter was done over the phone. Patient with reasonable mentation, but does seem confused to date at times. Denies any shortness of breath, swelling. - Vital Signs Vital signs: Vital Signs - 12hr 11/28/19 06:20 Temperature 98.5 F Pulse Rate 78 Respiratory 18 Rate Blood Pressure 131/62 O2 Sat by Pulse 99 Oximetry - Lab 11/26/19 06:54 11/27/19 03:36 Most recent lab results Calcium 8.7 mg/dL (8.4-10.2) 11/27/19 03:36 Medications & Allergies - Medications Allergies/Adverse Reactions: Allergies No Known Allergies Allergy (Unverified 05/10/18 17:04) Home Medications: Home Medications Medication Instructions Recorded Confirmed Last Taken Type Albuterol INH(or & Nicu Only) 2 puff IH QID PRN 05/17/18 11/26/19 09/01/18 History [ProAir HFA Inhaler] 2 puff Amlodipine Besylate [Norvasc] 10 mg PO QDAY 05/17/18 11/26/19 10/02/19 History Gabapentin 300 mg PO BID #60 capsule 10/05/19 11/26/19 Unknown Rx Pantoprazole [Protonix TAB] 40 mg PO QDAY #30 tablet 10/05/19 11/26/19 Unknown Rx carvediloL [Coreg] 3.125 mg PO BID #60 tablet 10/05/19 11/26/19 Unknown Rx Enoxaparin 80 mg SQ Q24HR #60 syringe 10/17/19 11/26/19 Unknown Rx Active Medications: Generic Name Dose Route Start Last Admin Trade Name Freq PRN Reason Stop Dose Admin Acetaminophen 650 mg 11/25/19 23:45 11/27/19 21:49 Tylenol PO 650 mg Q4H PRN Administration Pain MILD(1-3)/Fever >100.5/MAYES Albuterol 2.5 mg 11/27/19 00:13 Proventil IH Q4HRT PRN Shortness Of Breath Carvedilol 3.125 mg 11/27/19 10:00 11/27/19 21:44 Coreg PO 3.125 mg BID KERRIE Administration Dextrose 50 ml 11/25/19 23:45 D50w (25gm) Syringe IV Q30MIN PRN Hypoglycemia Protocol Cefepime HCl 1 gm in 100 mls @ 200 mls/hr 11/26/19 20:00 11/27/19 21:43 Cefepime/Ns 1 Gm/100 Ml IV 200 mls/hr Q24H KERRIE Administration Sodium Chloride 100 mls @ 999 mls/hr 11/27/19 22:28 Nacl 0.9% IV BARTOLO PRN Hypotension Lactulose 20 gm 11/26/19 01:00 11/28/19 05:37 Cephulac PO Not Given Q6HR KERRIE Ondansetron HCl 4 mg 11/25/19 23:45 Zofran IV Q8H PRN Nausea And Vomiting Pantoprazole Sodium 40 mg 11/27/19 10:00 11/27/19 11:01 Protonix PO 40 mg QDAY KERRIE Administration Sodium Chloride 10 ml 11/26/19 10:00 11/27/19 21:44 Sodium Chloride Flush Syringe 10 Ml IV 10 ml BID KERRIE Administration Sodium Chloride 10 ml 11/25/19 23:45 Sodium Chloride Flush Syringe 10 Ml IV PRN PRN LINE FLUSH
[2019-11-28 10:20] LABS: Albumin 2.5 g/dL (3.9-5); Calcium 9.1 mg/dL (8.4-10.2)
[2019-11-28] MEDS: carvediloL 3.125 MG TAB PO SCH ×2 (10:24→21:24)
[2019-11-28] MEDS: PANTOPRAZOLE 40 MG TAB PO SCH (10:24)
--- NOTE | 2019-11-28 15:06 | Progress Note ---
Assessment and Plan Assessment and plan: Hepatic encephalopathy Continue lactulose, prophylactic antibiotic Obtain cultures, Re check ammonia level, COVID suspected The forms were filled out Placed on droplet, contact isolation Consult ID Nodules in lung concerning for metastasis/liver mass concerning for hepatocellular carcinoma Consulted oncology Patient was given referral to follow-up with surgical oncology at [place] in September Anemia/thrombocytopenia/IVC thrombus On last discharge he was supposed to be on full dose Lovenox Will hold Lovenox for now defer to oncology for continuation given anemia and thrombocytopenia End-stage renal disease on dialysis Consult renal for dialysis Hypertension Continue outpatient medications Diabetes Check fingersticks, hold insulin for now 11/27/19 Patient feels better, mental status improved. Ammonia improving. 11/27/18 Await COVID testing. Obtain serial Ferritin, LDH, D-Dimer, CRP every 48h. Continue cefepime renally adjusted History Interval history: No new issues overnight Hospitalist Physical - Constitutional Vitals: Temp Pulse Resp BP Pulse Ox 98.5 F 76 18 146/76 99 11/28/19 06:20 11/28/19 14:30 11/28/19 06:20 11/28/19 14:30 11/28/19 06:20 General appearance: Present: no acute distress, well-nourished - EENT Eyes: Present: PERRL, EOM intact ENT: hearing intact, clear oral mucosa, dentition normal - Neck Neck: Present: supple, normal ROM - Respiratory Respiratory effort: normal Respiratory: bilateral: CTA - Cardiovascular Rhythm: regular Heart Sounds: Present: S1 & S2. Absent: gallop, rub - Extremities Extremities: no ischemia, No edema, Full ROM - Abdominal General gastrointestinal: soft, non-tender, non-distended, normal bowel sounds - Integumentary Integumentary: Present: clear, warm, dry - Neurologic Neurologic: CNII-XII intact, moves all extremities YURIY score - Yuriy Score Age > 65: (1) Yes Aspirin use within the Past 7 Days: (1) Yes 3 or more CAD Risk Factors: (1) Yes 2 or more Angina events in past 24 hrs: (1) Yes Known CAD with more than 50% Stenosis: (0) No Elevated Cardiac Markers: (1) Yes ST Deviation Greater than 0.5mm: (0) No YURIY Score: 5 Results - Labs CBC & Chem 7: 11/26/19 06:54 11/28/19 08:35 Labs: Laboratory Last Values WBC 4.8 K/mm3 (4.5-11.0) 11/26/19 06:54 RBC 3.58 M/mm3 (3.65-5.03) L 11/26/19 06:54 Hgb 7.9 gm/dl (11.8-15.2) L 11/26/19 06:54 Hct 26.2 % (35.5-45.6) L 11/26/19 06:54 MCV 73 fl (84-94) L 11/26/19 06:54 MCH 22 pg (28-32) L 11/26/19 06:54 MCHC 30 % (32-34) L 11/26/19 06:54 RDW 23.8 % (13.2-15.2) H 11/26/19 06:54 Plt Count 114 K/mm3 (140-440) L 11/26/19 06:54 Lymph % (Auto) 14.1 % (13.4-35.0) 11/26/19 06:54 Starr % (Auto) 10.2 % (0.0-7.3) H 11/26/19 06:54 Eos % (Auto) 1.3 % (0.0-4.3) 11/26/19 06:54 Baso % (Auto) 2.0 % (0.0-1.8) H 11/26/19 06:54 Lymph # 0.7 K/mm3 (1.2-5.4) L 11/26/19 06:54 Starr # 0.5 K/mm3 (0.0-0.8) 11/26/19 06:54 Eos # 0.1 K/mm3 (0.0-0.4) 11/26/19 06:54 Baso # 0.1 K/mm3 (0.0-0.1) 11/26/19 06:54 Add Manual Diff Complete 11/25/19 17:32 Total Counted 100 11/25/19 17:32 Seg Neutrophils % 72.4 % (40.0-70.0) H 11/26/19 06:54 Seg Neuts % (Manual) 85.0 % (40.0-70.0) H 11/25/19 17:32 Band Neutrophils % 0 % 11/25/19 17:32 Lymphocytes % (Manual) 10.0 % (13.4-35.0) L 11/25/19 17:32 Reactive Lymphs % (Man) 0 % 11/25/19 17:32 Monocytes % (Manual) 5.0 % (0.0-7.3) 11/25/19 17:32 Eosinophils % (Manual) 0 % (0.0-4.3) 11/25/19 17:32 Basophils % (Manual) 0 % (0.0-1.8) 11/25/19 17:32 Metamyelocytes % 0 % 11/25/19 17:32 Myelocytes % 0 % 11/25/19 17:32 Promyelocytes % 0 % 11/25/19 17:32 Blast Cells % 0 % 11/25/19 17:32 Nucleated RBC % 1.0 % (0.0-0.9) H 11/25/19 17:32 Seg Neutrophils # 3.5 K/mm3 (1.8-7.7) 11/26/19 06:54 Seg Neutrophils # Man 4.7 K/mm3 (1.8-7.7) 11/25/19 17:32 Band Neutrophils # 0.0 K/mm3 11/25/19 17:32 Lymphocytes # (Manual) 0.6 K/mm3 (1.2-5.4) L 11/25/19 17:32 Abs React Lymphs (Man) 0.0 K/mm3 11/25/19 17:32 Monocytes # (Manual) 0.3 K/mm3 (0.0-0.8) 11/25/19 17:32 Eosinophils # (Manual) 0.0 K/mm3 (0.0-0.4) 11/25/19 17:32 Basophils # (Manual) 0.0 K/mm3 (0.0-0.1) 11/25/19 17:32 Metamyelocytes # 0.0 K/mm3 11/25/19 17:32 Myelocytes # 0.0 K/mm3 11/25/19 17:32 Promyelocytes # 0.0 K/mm3 11/25/19 17:32 Blast Cells # 0.0 K/mm3 11/25/19 17:32 WBC Morphology Not Reportable 11/25/19 17:32 Hypersegmented Neuts Not Reportable 11/25/19 17:32 Hyposegmented Neuts Not Reportable 11/25/19 17:32 Hypogranular Neuts Not Reportable 11/25/19 17:32 Smudge Cells Not Reportable 11/25/19 17:32 Toxic Granulation Not Reportable 11/25/19 17:32 Toxic Vacuolation Not Reportable 11/25/19 17:32 Dohle Bodies Not Reportable 11/25/19 17:32 Pelger-Huet Anomaly Not Reportable 11/25/19 17:32 Cristina Rods Not Reportable 11/25/19 17:32 Platelet Estimate Consistent w auto 11/25/19 17:32 Clumped Platelets Not Reportable 11/25/19 17:32 Plt Clumps, EDTA Not Reportable 11/25/19 17:32 Large Platelets Not Reportable 11/25/19 17:32 Giant Platelets Not Reportable 11/25/19 17:32 Platelet Satelliting Not Reportable 11/25/19 17:32 Plt Morphology Comment Not Reportable 11/25/19 17:32 RBC Morphology Not Reportable 11/25/19 17:32 Dimorphic RBCs Not Reportable 11/25/19 17:32 Polychromasia Few 11/25/19 17:32 Hypochromasia Few 11/25/19 17:32 Poikilocytosis Not Reportable 11/25/19 17:32 Anisocytosis 2+ 11/25/19 17:32 Microcytosis Few 11/25/19 17:32 Macrocytosis 1+ 11/25/19 17:32 Spherocytes Not Reportable 11/25/19 17:32 Pappenheimer Bodies Not Reportable 11/25/19 17:32 Sickle Cells Not Reportable 11/25/19 17:32 Target Cells Few 11/25/19 17:32 Tear Drop Cells Not Reportable 11/25/19 17:32 Ovalocytes Few 11/25/19 17:32 Helmet Cells Not Reportable 11/25/19 17:32 [place] Bodies Not Reportable 11/25/19 17:32 [place] Rings Not Reportable 11/25/19 17:32 [place] Cells Not Reportable 11/25/19 17:32 Bite Cells Not Reportable 11/25/19 17:32 Crenated Cell Not Reportable 11/25/19 17:32 Elliptocytes Not Reportable 11/25/19 17:32 Acanthocytes (Spur) Not Reportable 11/25/19 17:32 Rouleaux Not Reportable 11/25/19 17:32 Hemoglobin C Crystals Not Reportable 11/25/19 17:32 Schistocytes Rare 11/25/19 17:32 Malaria parasites Not Reportable 11/25/19 17:32 [place] Bodies Not Reportable 11/25/19 17:32 Hem Pathologist Commnt No 11/25/19 17:32 PT 17.5 Sec. (12.2-14.9) H 11/25/19 18:37 INR 1.41 (0.87-1.13) H 11/25/19 18:37 APTT 34.5 Sec. (24.2-36.6) 11/25/19 18:37 D-Dimer > 48915 ng/mlDDU (0-234) H 11/28/19 00:45 VBG pH 7.446 (7.320-7.420) H 11/25/19 18:37 Sodium 134 mmol/L (137-145) L 11/28/19 08:35 Potassium 4.0 mmol/L (3.6-5.0) 11/28/19 08:35 Chloride 93.3 mmol/L (98-107) L 11/28/19 08:35 Carbon Dioxide 14 mmol/L (22-30) L 11/28/19 08:35 Anion Gap 31 mmol/L 11/28/19 08:35 BUN 64 mg/dL (9-20) H 11/28/19 08:35 Creatinine 13.0 mg/dL (0.8-1.5) H 11/28/19 08:35 Estimated GFR 5 ml/min 11/28/19 08:35 BUN/Creatinine Ratio 5 % 11/28/19 08:35 Glucose 137 mg/dL (75-100) H 11/28/19 08:35 POC Glucose 141 (70-105) H 11/28/19 08:37 Lactic Acid 3.30 mmol/L (0.7-2.0) H* 11/27/19 03:36 Calcium 9.1 mg/dL (8.4-10.2) 11/28/19 08:35 Ferritin 811.7 ng/mL (13.0-400.0) H 11/28/19 00:45 Total Bilirubin 1.20 mg/dL (0.1-1.2) 11/28/19 08:35 AST 117 units/L (5-40) H 11/28/19 08:35 ALT 27 units/L (7-56) 11/28/19 08:35 Alkaline Phosphatase 195 units/L (35-129) H 11/28/19 08:35 Ammonia 69.0 umol/L (25-60) H 11/28/19 08:35 Lactate Dehydrogenase 925 units/L (91-180) H 11/28/19 00:45 Total Creatine Kinase 399 units/L (55-170) H 11/26/19 06:54 CK-MB (CK-2) 4.3 ng/mL (0.0-4.0) H 11/26/19 06:54 CK-MB (CK-2) Rel Index 1.0 (0-4) 11/26/19 06:54 Troponin T 0.051 ng/mL (0.00-0.029) H 11/26/19 06:54 C-Reactive Protein 12.50 mg/dL (0.00-1.30) H 11/28/19 00:45 Total Protein 8.5 g/dL (6.3-8.2) H 11/28/19 08:35 Albumin 2.5 g/dL (3.9-5) L 11/28/19 08:35 Albumin/Globulin Ratio 0.4 % 11/28/19 08:35 Triglycerides 133 mg/dL (2-149) 11/26/19 06:54 Cholesterol 91 mg/dL (50-199) 11/26/19 06:54 LDL Cholesterol Direct 42 mg/dL (50-130) L 11/26/19 06:54 HDL Cholesterol 12 mg/dL (40-59) L 11/26/19 06:54 Cholesterol/HDL Ratio 7.58 % 11/26/19 06:54 Hepatitis A IgM Ab Non-reactive (NonReactive) 11/26/19 21:33 Hep Bs Antigen Non-reactive (Negative) 11/26/19 21:33 Hep B Core IgM Ab Non-reactive (NonReactive) 11/26/19 21:33 Hepatitis C Antibody Reactive (NonReactive) A 11/26/19 21:33 Microbiology: Microbiology 11/25/19 18:37 Peripheral/Venous Blood Culture - Preliminary NO GROWTH AFTER 48 HOURS 11/25/19 18:37 Peripheral/Venous Blood Culture - Preliminary NO GROWTH AFTER 48 HOURS Christianson/IV: Voiding Method Toilet IV Catheter Type [Right Peripheral IV Forearm] IV Catheter Type [Right Hand] INT / Saline Lock Active Medications - Current Medications Current Medications: Generic Name Dose Route Start Last Admin Trade Name Freq PRN Reason Stop Dose Admin Acetaminophen 650 mg 11/25/19 23:45 11/27/19 21:49 Tylenol PO 650 mg Q4H PRN Administration Pain MILD(1-3)/Fever >100.5/MAYES Albuterol 2.5 mg 11/27/19 00:13 Proventil IH Q4HRT PRN Shortness Of Breath Carvedilol 3.125 mg 11/27/19 10:00 11/28/19 10:24 Coreg PO 3.125 mg BID KERRIE Administration Dextrose 50 ml 11/25/19 23:45 D50w (25gm) Syringe IV Q30MIN PRN Hypoglycemia Protocol Cefepime HCl 1 gm in 100 mls @ 200 mls/hr 11/26/19 20:00 11/27/19 21:43 Cefepime/Ns 1 Gm/100 Ml IV 200 mls/hr Q24H KERRIE Administration Sodium Chloride 100 mls @ 999 mls/hr 11/27/19 22:28 Nacl 0.9% IV BARTOLO PRN Hypotension Lactulose 20 gm 11/26/19 01:00 11/28/19 05:37 Cephulac PO Not Given Q6HR KERRIE Ondansetron HCl 4 mg 11/25/19 23:45 Zofran IV Q8H PRN Nausea And Vomiting Pantoprazole Sodium 40 mg 11/27/19 10:00 11/28/19 10:24 Protonix PO 40 mg QDAY KERRIE Administration Sodium Chloride 10 ml 11/26/19 10:00 11/28/19 10:24 Sodium Chloride Flush Syringe 10 Ml IV 10 ml BID KERRIE Administration Sodium Chloride 10 ml 11/25/19 23:45 Sodium Chloride Flush Syringe 10 Ml IV PRN PRN LINE FLUSH
--- NOTE | 2019-11-28 15:37 | Progress Note ---
Assessment and Plan Cultures: Blood culture 11/26/2019 no growth to date A/P: 64 y/o male with a history of ESRD on HD, hypertension, diabetes, CHF, cirrhosis, hepatitis C, liver mass concerning for hepatocellular carcinoma in Sep 2019, IVC thrombus was brought to the emergency room for evaluation admitted due to AMS, decreased responsiveness by the neighbor, now with a fever: #Fever: unclear etiology ? pneumonitis ?SBP ?metastatic cancer #Bilateral pneumonia: CAP vs COVID. Imaging with lung nodules ? metastasis. Currenly on room air. Noted very elevated Ddimer/LDH/CRP but not that high georgi tin ? metastatic cancer then COVID #Acute encephalopathy: likely hepatic encephalopathy #Abdominal pain ? should r/o SBP #HCV cirrhosis with ascitis and possible HCC #ESRD on HD #Anemia and thrombocytopenia Recs: Consider diagnostic paracentesis if large ascitis Continuos pulse oximetry and check exercise oximetry Obtain COVID test - pending - suspicion for COVID low ContinueCOVID isolationprecautions per [facility] protocol Continue cefepime renally adjusted Obtain serial Ferritin, LDH, D-Dimer, CRP tomorrow Guarded prognosis Thank you for the consult, we will continue to follow. Alessandra Lopes MD Infectious Diseases Recovery Engineer [facility] ([facility]) M [phone] O [phone] Subjective Date of service: 11/28/19 Principal diagnosis: fever Interval history: Remains on room air Objective - Exam Narrative Exam: Gen: alert in NAD on room air Head, Ears, Nose: limited Oral: Limited Cardiovascular: Limited evaluation due to PPE shortage Respiratory: Limited GI: Limited evaluation due to PPE shortage Musculoskeletal: Limited evaluation due to PPE shortage Neurological: alert non focal - Constitutional Vitals: Vital Signs Temp Pulse Resp BP Pulse Ox 97.5 F L 81 18 118/68 98 11/28/19 11:30 11/28/19 15:30 11/28/19 11:30 11/28/19 15:30 11/28/19 11:30 Temperature -Last 24 Hours Temperature 97.5 F Temperature 98.5 F Temperature 97.6 F Temperature 98.2 F - Labs CBC & Chem 7: 11/26/19 06:54 11/28/19 08:35 Labs: Abnormal lab results 11/27/19 11/27/19 11/28/19 Range/Units 17:41 21:58 00:45 D-Dimer > 67801 H (0-234) ng/mlDDU Sodium (137-145) mmol/L Chloride (98-107) mmol/L Carbon Dioxide (22-30) mmol/L BUN (9-20) mg/dL Creatinine (0.8-1.5) mg/dL Glucose (75-100) mg/dL POC Glucose 145 H 153 H (70-105) Ferritin (13.0-400.0) ng/mL AST (5-40) units/L Alkaline Phosphatase (35-129) units/L Ammonia (25-60) umol/L Lactate Dehydrogenase (91-180) units/L C-Reactive Protein (0.00-1.30) mg/dL Total Protein (6.3-8.2) g/dL Albumin (3.9-5) g/dL 11/28/19 11/28/19 11/28/19 Range/Units 00:45 00:45 00:45 D-Dimer (0-234) ng/mlDDU Sodium (137-145) mmol/L Chloride (98-107) mmol/L Carbon Dioxide (22-30) mmol/L BUN (9-20) mg/dL Creatinine (0.8-1.5) mg/dL Glucose (75-100) mg/dL POC Glucose (70-105) Ferritin 811.7 H (13.0-400.0) ng/mL AST (5-40) units/L Alkaline Phosphatase (35-129) units/L Ammonia (25-60) umol/L Lactate Dehydrogenase 925 H (91-180) units/L C-Reactive Protein 12.50 H (0.00-1.30) mg/dL Total Protein (6.3-8.2) g/dL Albumin (3.9-5) g/dL 11/28/19 11/28/19 11/28/19 Range/Units 08:35 08:35 08:37 D-Dimer (0-234) ng/mlDDU Sodium 134 L (137-145) mmol/L Chloride 93.3 L (98-107) mmol/L Carbon Dioxide 14 L (22-30) mmol/L BUN 64 H (9-20) mg/dL Creatinine 13.0 H (0.8-1.5) mg/dL Glucose 137 H (75-100) mg/dL POC Glucose 141 H (70-105) Ferritin (13.0-400.0) ng/mL AST 117 H (5-40) units/L Alkaline Phosphatase 195 H (35-129) units/L Ammonia 69.0 H (25-60) umol/L Lactate Dehydrogenase (91-180) units/L C-Reactive Protein (0.00-1.30) mg/dL Total Protein 8.5 H (6.3-8.2) g/dL Albumin 2.5 L (3.9-5) g/dL 11/28/19 Range/Units 11:41 D-Dimer (0-234) ng/mlDDU Sodium (137-145) mmol/L Chloride (98-107) mmol/L Carbon Dioxide (22-30) mmol/L BUN (9-20) mg/dL Creatinine (0.8-1.5) mg/dL Glucose (75-100) mg/dL POC Glucose 226 H (70-105) Ferritin (13.0-400.0) ng/mL AST (5-40) units/L Alkaline Phosphatase (35-129) units/L Ammonia (25-60) umol/L Lactate Dehydrogenase (91-180) units/L C-Reactive Protein (0.00-1.30) mg/dL Total Protein (6.3-8.2) g/dL Albumin (3.9-5) g/dL
[2019-11-28] MEDS: CEFEPIME/NS 1 GM/100 ML 1 GM/100 ML BAG IV SCH (21:23)
[2019-11-28] MEDS: ACETAMINOPHEN 325 MG TAB PO PRN (21:24)
[2019-11-29] MEDS: LACTULOSE 20 GM/30 ML ORAL LIQD PO SCH ×3 (00:44→13:54)
--- NOTE | 2019-11-29 08:55 | Progress Note ---
Assessment and Plan Assessment and plan: Hepatic encephalopathy Continue lactulose, prophylactic antibiotic Obtain cultures, Re check ammonia level, COVID suspected The forms were filled out Placed on droplet, contact isolation Consult ID Nodules in lung concerning for metastasis/liver mass concerning for hepatocellular carcinoma Consulted oncology Patient was given referral to follow-up with surgical oncology at [place] in September Anemia/thrombocytopenia/IVC thrombus On last discharge he was supposed to be on full dose Lovenox Will hold Lovenox for now defer to oncology for continuation given anemia and thrombocytopenia End-stage renal disease on dialysis Consult renal for dialysis Hypertension Continue outpatient medications Diabetes Check fingersticks, hold insulin for now 11/27/19 Patient feels better, mental status improved. Ammonia improving. 11/28/19 Await COVID testing. Obtain serial Ferritin, LDH, D-Dimer, CRP every 48h. Continue cefepime renally adjusted 11/29/2019. Patient continues to remain confused with pulling at IV and attempting to ambulate in the hallways. Patient requiring soft wrist restraints for safety. Ammonia level slightly elevated at 70. Continue lactulose. Encephalopathy appears to be multifactorial and secondary to sepsis/CO VID +/- hepatic. Continue to monitor inflammatory markers. ID following. History Interval history: Patient confused this morning per nursing. Chart reviewed and discussed with nurse plan of care. Patient not seen due to insufficient PPE and efforts to preserve current PPE. Hospitalist Physical - Constitutional Vitals: Temp Pulse Resp BP Pulse Ox 97.8 F 97 H 22 138/68 98 11/29/19 06:41 11/29/19 06:41 11/29/19 06:41 11/29/19 06:41 11/29/19 07:45 General appearance: Present: no acute distress, well-nourished YURIY score - Yuriy Score Age > 65: (1) Yes Aspirin use within the Past 7 Days: (1) Yes 3 or more CAD Risk Factors: (1) Yes 2 or more Angina events in past 24 hrs: (1) Yes Known CAD with more than 50% Stenosis: (0) No Elevated Cardiac Markers: (1) Yes ST Deviation Greater than 0.5mm: (0) No YURIY Score: 5 Results - Labs CBC & Chem 7: 11/26/19 06:54 11/28/19 08:35 Labs: Laboratory Last Values WBC 4.8 K/mm3 (4.5-11.0) 11/26/19 06:54 RBC 3.58 M/mm3 (3.65-5.03) L 11/26/19 06:54 Hgb 7.9 gm/dl (11.8-15.2) L 11/26/19 06:54 Hct 26.2 % (35.5-45.6) L 11/26/19 06:54 MCV 73 fl (84-94) L 11/26/19 06:54 MCH 22 pg (28-32) L 11/26/19 06:54 MCHC 30 % (32-34) L 11/26/19 06:54 RDW 23.8 % (13.2-15.2) H 11/26/19 06:54 Plt Count 114 K/mm3 (140-440) L 11/26/19 06:54 Lymph % (Auto) 14.1 % (13.4-35.0) 11/26/19 06:54 [place] % (Auto) 10.2 % (0.0-7.3) H 11/26/19 06:54 Eos % (Auto) 1.3 % (0.0-4.3) 11/26/19 06:54 Baso % (Auto) 2.0 % (0.0-1.8) H 11/26/19 06:54 Lymph # 0.7 K/mm3 (1.2-5.4) L 11/26/19 06:54 [place] # 0.5 K/mm3 (0.0-0.8) 11/26/19 06:54 Eos # 0.1 K/mm3 (0.0-0.4) 11/26/19 06:54 Baso # 0.1 K/mm3 (0.0-0.1) 11/26/19 06:54 Add Manual Diff Complete 11/25/19 17:32 Total Counted 100 11/25/19 17:32 Seg Neutrophils % 72.4 % (40.0-70.0) H 11/26/19 06:54 Seg Neuts % (Manual) 85.0 % (40.0-70.0) H 11/25/19 17:32 Band Neutrophils % 0 % 11/25/19 17:32 Lymphocytes % (Manual) 10.0 % (13.4-35.0) L 11/25/19 17:32 Reactive Lymphs % (Man) 0 % 11/25/19 17:32 Monocytes % (Manual) 5.0 % (0.0-7.3) 11/25/19 17:32 Eosinophils % (Manual) 0 % (0.0-4.3) 11/25/19 17:32 Basophils % (Manual) 0 % (0.0-1.8) 11/25/19 17:32 Metamyelocytes % 0 % 11/25/19 17:32 Myelocytes % 0 % 11/25/19 17:32 Promyelocytes % 0 % 11/25/19 17:32 Blast Cells % 0 % 11/25/19 17:32 Nucleated RBC % 1.0 % (0.0-0.9) H 11/25/19 17:32 Seg Neutrophils # 3.5 K/mm3 (1.8-7.7) 11/26/19 06:54 Seg Neutrophils # Man 4.7 K/mm3 (1.8-7.7) 11/25/19 17:32 Band Neutrophils # 0.0 K/mm3 11/25/19 17:32 Lymphocytes # (Manual) 0.6 K/mm3 (1.2-5.4) L 11/25/19 17:32 Abs React Lymphs (Man) 0.0 K/mm3 11/25/19 17:32 Monocytes # (Manual) 0.3 K/mm3 (0.0-0.8) 11/25/19 17:32 Eosinophils # (Manual) 0.0 K/mm3 (0.0-0.4) 11/25/19 17:32 Basophils # (Manual) 0.0 K/mm3 (0.0-0.1) 11/25/19 17:32 Metamyelocytes # 0.0 K/mm3 11/25/19 17:32 Myelocytes # 0.0 K/mm3 11/25/19 17:32 Promyelocytes # 0.0 K/mm3 11/25/19 17:32 Blast Cells # 0.0 K/mm3 11/25/19 17:32 WBC Morphology Not Reportable 11/25/19 17:32 Hypersegmented Neuts Not Reportable 11/25/19 17:32 Hyposegmented Neuts Not Reportable 11/25/19 17:32 Hypogranular Neuts Not Reportable 11/25/19 17:32 Smudge Cells Not Reportable 11/25/19 17:32 Toxic Granulation Not Reportable 11/25/19 17:32 Toxic Vacuolation Not Reportable 11/25/19 17:32 Dohle Bodies Not Reportable 11/25/19 17:32 Pelger-Huet Anomaly Not Reportable 11/25/19 17:32 Cristina Rods Not Reportable 11/25/19 17:32 Platelet Estimate Consistent w auto 11/25/19 17:32 Clumped Platelets Not Reportable 11/25/19 17:32 Plt Clumps, EDTA Not Reportable 11/25/19 17:32 Large Platelets Not Reportable 11/25/19 17:32 Giant Platelets Not Reportable 11/25/19 17:32 Platelet Satelliting Not Reportable 11/25/19 17:32 Plt Morphology Comment Not Reportable 11/25/19 17:32 RBC Morphology Not Reportable 11/25/19 17:32 Dimorphic RBCs Not Reportable 11/25/19 17:32 Polychromasia Few 11/25/19 17:32 Hypochromasia Few 11/25/19 17:32 Poikilocytosis Not Reportable 11/25/19 17:32 Anisocytosis 2+ 11/25/19 17:32 Microcytosis Few 11/25/19 17:32 Macrocytosis 1+ 11/25/19 17:32 Spherocytes Not Reportable 11/25/19 17:32 Pappenheimer Bodies Not Reportable 11/25/19 17:32 Sickle Cells Not Reportable 11/25/19 17:32 Target Cells Few 11/25/19 17:32 Tear Drop Cells Not Reportable 11/25/19 17:32 Ovalocytes Few 11/25/19 17:32 Helmet Cells Not Reportable 11/25/19 17:32 Mccrary-Kaleva Bodies Not Reportable 11/25/19 17:32 [place] Rings Not Reportable 11/25/19 17:32 Shan Cells Not Reportable 11/25/19 17:32 Bite Cells Not Reportable 11/25/19 17:32 Crenated Cell Not Reportable 11/25/19 17:32 Elliptocytes Not Reportable 11/25/19 17:32 Acanthocytes (Spur) Not Reportable 11/25/19 17:32 Rouleaux Not Reportable 11/25/19 17:32 Hemoglobin C Crystals Not Reportable 11/25/19 17:32 Schistocytes Rare 11/25/19 17:32 Malaria parasites Not Reportable 11/25/19 17:32 [place] Bodies Not Reportable 11/25/19 17:32 Hem Pathologist Commnt No 11/25/19 17:32 PT 17.5 Sec. (12.2-14.9) H 11/25/19 18:37 INR 1.41 (0.87-1.13) H 11/25/19 18:37 APTT 34.5 Sec. (24.2-36.6) 11/25/19 18:37 D-Dimer > 50586 ng/mlDDU (0-234) H 11/28/19 00:45 VBG pH 7.446 (7.320-7.420) H 11/25/19 18:37 Sodium 134 mmol/L (137-145) L 11/28/19 08:35 Potassium 4.0 mmol/L (3.6-5.0) 11/28/19 08:35 Chloride 93.3 mmol/L (98-107) L 11/28/19 08:35 Carbon Dioxide 14 mmol/L (22-30) L 11/28/19 08:35 Anion Gap 31 mmol/L 11/28/19 08:35 BUN 64 mg/dL (9-20) H 11/28/19 08:35 Creatinine 13.0 mg/dL (0.8-1.5) H 11/28/19 08:35 Estimated GFR 5 ml/min 11/28/19 08:35 BUN/Creatinine Ratio 5 % 11/28/19 08:35 Glucose 137 mg/dL (75-100) H 11/28/19 08:35 POC Glucose 151 (70-105) H 11/29/19 08:06 Lactic Acid 3.30 mmol/L (0.7-2.0) H* 11/27/19 03:36 Calcium 9.1 mg/dL (8.4-10.2) 11/28/19 08:35 Ferritin 811.7 ng/mL (13.0-400.0) H 11/28/19 00:45 Total Bilirubin 1.20 mg/dL (0.1-1.2) 11/28/19 08:35 AST 117 units/L (5-40) H 11/28/19 08:35 ALT 27 units/L (7-56) 11/28/19 08:35 Alkaline Phosphatase 195 units/L (35-129) H 11/28/19 08:35 Ammonia 70.0 umol/L (25-60) H 11/29/19 07:08 Lactate Dehydrogenase 925 units/L (91-180) H 11/28/19 00:45 Total Creatine Kinase 399 units/L (55-170) H 11/26/19 06:54 CK-MB (CK-2) 4.3 ng/mL (0.0-4.0) H 11/26/19 06:54 CK-MB (CK-2) Rel Index 1.0 (0-4) 11/26/19 06:54 Troponin T 0.051 ng/mL (0.00-0.029) H 11/26/19 06:54 C-Reactive Protein 12.50 mg/dL (0.00-1.30) H 11/28/19 00:45 Total Protein 8.5 g/dL (6.3-8.2) H 11/28/19 08:35 Albumin 2.5 g/dL (3.9-5) L 11/28/19 08:35 Albumin/Globulin Ratio 0.4 % 11/28/19 08:35 Triglycerides 133 mg/dL (2-149) 11/26/19 06:54 Cholesterol 91 mg/dL (50-199) 11/26/19 06:54 LDL Cholesterol Direct 42 mg/dL (50-130) L 11/26/19 06:54 HDL Cholesterol 12 mg/dL (40-59) L 11/26/19 06:54 Cholesterol/HDL Ratio 7.58 % 11/26/19 06:54 Hepatitis A IgM Ab Non-reactive (NonReactive) 11/26/19 21:33 Hep Bs Antigen Non-reactive (Negative) 11/26/19 21: Hep B Core IgM Ab Non-reactive (NonReactive) 11/26/19 21:33 Hepatitis C Antibody Reactive (NonReactive) A 11/26/19 21:33 Microbiology: Microbiology 11/25/19 18:37 Peripheral/Venous Blood Culture - Preliminary NO GROWTH AFTER 72 HOURS 11/25/19 18:37 Peripheral/Venous Blood Culture - Preliminary NO GROWTH AFTER 72 HOURS Christianson/IV: Voiding Method Toilet IV Catheter Type [Right Peripheral IV Forearm] IV Catheter Type [Right Hand] INT / Saline Lock Active Medications - Current Medications Current Medications: Generic Name Dose Route Start Last Admin Trade Name Freq PRN Reason Stop Dose Admin Acetaminophen 650 mg 11/25/19 23:45 11/28/19 21:24 Tylenol PO 650 mg Q4H PRN Administration Pain MILD(1-3)/Fever >100.5/MAYES Albuterol 2.5 mg 11/27/19 00:13 Proventil IH Q4HRT PRN Shortness Of Breath Carvedilol 3.125 mg 11/27/19 10:00 11/28/19 21:24 Coreg PO 3.125 mg BID KERRIE Administration Dextrose 50 ml 11/25/19 23:45 D50w (25gm) Syringe IV Q30MIN PRN Hypoglycemia Protocol Cefepime HCl 1 gm in 100 mls @ 200 mls/hr 11/26/19 20:00 11/28/19 21:23 Cefepime/Ns 1 Gm/100 Ml IV 200 mls/hr Q24H KERRIE Administration Sodium Chloride 100 mls @ 999 mls/hr 11/27/19 22:28 Nacl 0.9% IV BARTOLO PRN Hypotension Lactulose 20 gm 11/26/19 01:00 11/29/19 06:32 Cephulac PO Not Given Q6HR KERRIE Ondansetron HCl 4 mg 11/25/19 23:45 Zofran IV Q8H PRN Nausea And Vomiting Pantoprazole Sodium 40 mg 11/27/19 10:00 11/28/19 10:24 Protonix PO 40 mg QDAY KERRIE Administration Sodium Chloride 10 ml 11/26/19 10:00 11/28/19 21:24 Sodium Chloride Flush Syringe 10 Ml IV 10 ml BID KERRIE Administration Sodium Chloride 10 ml 11/25/19 23:45 Sodium Chloride Flush Syringe 10 Ml IV PRN PRN LINE FLUSH
[2019-11-29] MEDS: PANTOPRAZOLE 40 MG TAB PO SCH (09:53)
[2019-11-29] MEDS: carvediloL 3.125 MG TAB PO SCH (09:53)
[2019-11-29 13:50] VITALS: BP 108/67
--- NOTE | 2019-11-29 15:54 | Event Note ---
Date: 11/29/19 A JOSHUA COPPOLA was called overhead. I arrived at the bedside and found the patient to be in cardiopulmonary arrest. Patient was being treated in accordance with ACLS protocol upon my arrival. Patient treatment continued. Patient initially was found to have a perfusing rhythm however patient was subsequently found to have ventricular fibrillation and ACLS protocol was reinitiated. Perfusing rhythm was unable to be obtained. Patient was found to have pupils fixed and dilated, absence of breath sounds, absent cardiac rhythm. Patient pronounced at 1543 hrs. 60 minutes critical care time dedicated to patient care.
--- NOTE | 2019-11-29 15:55 | Death Note ---
Note Date of : 11/29/19 Time of : 15:43 Time Pronounced: 15:43 - Preliminary Cause of (problem) (1) Suspected [facility] coronavirus infection Preliminary cause of (2) ESRD (end stage renal disease) on dialysis Preliminary cause of (3) Hepatocellular carcinoma Preliminary cause of
--- NOTE | 2019-11-30 13:43 | Death Summary ---
Summary - Providers Date of service: 11/29/19 Consults: 11/25/19 21:13 Consult to Physician [CONS] Urgent Comment: Dr. Rivera spoke with Dr. Becerra @ [id number] Consulting Provider: LENARD BECERRA Physician Instructions: Reason For Exam: esrd 11/25/19 23:45 Consult to Physician [CONS] Routine Comment: Consulting Provider: MYLES WALKER Physician Instructions: Reason For Exam: hcc/mets 11/26/19 01:50 Consult to Physician [CONS] Routine Comment: Consulting Provider: NIRMAL KITCHEN Physician Instructions: Reason For Exam: fever Attending: EVA JOHNSON - summary Date of admission: 11/25/19 23:09 Date of : 11/29/19 Disposition: 64 y/o male with a history of ESRD on HD, hypertension, diabetes, CHF, cirrhosis, hepatitis C, liver mass concerning for hepatocellular carcinoma in Sep 2019, IVC thrombus was brought to the emergency room for evaluation admitted due to AMS, decreased responsiveness by the neighbor. He complained of abdominal pain. On arrival fever 100.3 with labs showing anemia and thrombocytopenia. CXR with hazy manny infiltrates. The patient was admitted with diagnosis of encephalopathymultifactorial, suspected CO VID, nodules concerning for metastasis/liver mass concerning for hepatocellular carcinoma, ESRD and bilateral pneumonia. Patient was seen by ID in consultation for suspected COVID. Patient was also noted to have ascites and was scheduled for diagnostic paracentesis. Patient was treated with empiric antibiotics of cefepime and inflammatory markers were obtained. During the patient's work-up, unfortunately, patient deteriorated on 11/29/2019 with a CODE BLUE initiated. Patient initially was found to have a perfusing rhythm however patient was subsequently found to have ventricular fibrillation and ACLS protocol was reinitiated. Perfusing rhythm was unable to be obtained. Patient was found to have pupils fixed and dilated, absence of breath sounds, absent cardiac rhythm. Patient pronounced at 1543 hrs. dedicated discharge time 32 minutes.
== END 2019-11-29 15:45 | DRG 441 ==
LOC: ED 17:21 → 3A 23:09
PROVIDERS: ADMIT Internal Medicine; ATTEND Hospitalist
PROC: 0BH17EZ Insertion of Endotracheal Airway into Trachea, Via Natural or Artificial Opening (ICD-10-PCS; 2019-11-28)
PROC: 5A1D70Z Performance of Urinary Filtration, Intermittent, Less than 6 Hours Per Day (ICD-10-PCS; 2019-11-28)
PROC: 5A12012 Performance of Cardiac Output, Single, Manual (ICD-10-PCS; principal; 2019-11-29)
DX: K72.90 Hepatic failure, unspecified without coma (principal); J18.9 Pneumonia, unspecified organism; N18.6 End stage renal disease; C22.0 Liver cell carcinoma; I49.01 Ventricular fibrillation; E11.22 Type 2 diabetes mellitus with diabetic chronic kidney disease; I13.2 Hypertensive heart and chronic kidney disease with heart failure and with stage 5 chronic kidney disease, or end stage renal disease; I50.9 Heart failure, unspecified; E83.9 Disorder of mineral metabolism, unspecified; Z79.899 Other long term (current) drug therapy; Z79.51 Long term (current) use of inhaled steroids; Z99.2 Dependence on renal dialysis; Z03.818 Encounter for observation for suspected exposure to other biological agents ruled out
CPT/HCPCS: 31500; 36415; 70450; 70486; 71045; 71250; 72125; 80048; 80053; 80061; 80074; 82140; 82550; 82553; 82728; 82805; 82962; 83615; 84484; 85007; 85025; 85379; 85610; 85730; 86140; 87040; 93005; 93010; G0378; J0692; J2405; J2916; J3370; J7040; J7050